=== PATIENT | male | born 1945 | race Caucasian/White ===

== ENCOUNTER 2017-03-23 07:04 | Day surgery (SDC) | payer MEDICARE, BC ==
[2017-03-23] MEDS ORDERED: fentaNYL 100 MCG/2 ML SDV ONE (07:54)
[2017-03-23] MEDS ORDERED: Midazolam 1 MG/ML 2 ML SDV ONE (07:54)
[2017-03-23] MEDS ORDERED: Propofol 200 MG/20 ML SDV ONE (07:54)
[2017-03-23] MEDS ORDERED: Dextrose 5%-Lactated Ringers 1,000 ML IV SCH (08:00)
[2017-03-23 10:17] VITALS: BP 112/78
--- NOTE | 2017-03-26 12:19 | OR ---
DATE OF PROCEDURE: 03/23/2017 PREOPERATIVE DIAGNOSES: 1. Recent history of rectal pain. 2. History of adenomatous colonic polyps. POSTOPERATIVE DIAGNOSIS: Normal colonoscopic examination. OPERATIVE PROCEDURE: Flexible colonoscopy. ANESTHESIA: IV sedation. INDICATION FOR PROCEDURE: A 71-year-old male presenting with some ongoing rectal pain. He does have history of colonic adenomatous polyps and is due for a flexible colonoscopy followup and we also would be evaluating for any underlying source of his rectal pain. He there has recently completed a course of antibiotics apparently for prostatitis per Dr. Shepherd at the Urology Department at [place]. Plan is to treat with flexible colonoscopy with biopsies and/or polypectomy. Potential risks including bleeding and perforation were discussed, and the patient wishes to proceed. DETAILS OF THE PROCEDURE: The patient was taken to the operating room and placed in a left lateral decubitus position. IV sedation was administered, after which the initial digital rectal exam was performed which showed a somewhat helpful prostate, but otherwise was unremarkable. The colonoscope was then passed into the rectum with retroflexion revealing uncomplicated hemorrhoidal columns. The scope was then eventually passed to the ileocecal valve. To that level, there was only a small amount of liquid stool present i.e. the prep was fairly good. There were no abnormalities noted during the exam. Specifically, no areas of diverticular disease. No areas of colitis and no polyps or other signs of neoplasia. As one pulled the scope back these findings were reconfirmed and the procedure was then concluded. Specifically, there were no abnormalities noted in the rectum on examination. The patient was taken to the recovery room in a satisfactory condition. The plan will be to have the patient follow up with Dr. Shepherd in the Urology Department in [place], given the normal colonoscopic examination and/or rectal pain. Noe Cervantes MD /[id number]
== END 2017-03-23 09:25 | disposition home or self-care (01) ==
LOC: JP.SDS 07:04
PROVIDERS: ATTEND Surgery
DX: Z12.11 Encounter for screening for malignant neoplasm of colon (principal); Z86.010 Personal history of colon polyps; Z88.2 Allergy status to sulfonamides; Z88.8 Allergy status to other drugs, medicaments and biological substances
CPT/HCPCS: G0105; J2250; J2704; J3010; J7042

== ENCOUNTER 2018-01-27 07:26 | Inpatient (IN) | payer MEDICARE, BC ==
[2018-01-27] MEDS ORDERED: Propofol 200 MG/20 ML SDV ONE ×3 (07:29→12:19)
[2018-01-27] MEDS ORDERED: Midazolam 1 MG/ML 2 ML SDV ONE (07:29)
[2018-01-27] MEDS ORDERED: fentaNYL 100 MCG/2 ML SDV ONE (07:29)
[2018-01-27] MEDS ORDERED: Scopolamine 1.5 MG Transdermal Patch TOP SCH (07:40)
[2018-01-27] MEDS ORDERED: Acetaminophen 500 MG Tab PO ONE (07:40)
[2018-01-27] MEDS ORDERED: Gabapentin 300 MG Cap PO ONE (07:40)
[2018-01-27] MEDS ORDERED: Lactated Ringers 1,000 ML IV SCH (08:15)
[2018-01-27] MEDS ORDERED: ceFAZolin 2 GM in Premix Bag 1 BAG IV ONE (08:15)
[2018-01-27] MEDS ORDERED: Ketamine 500 MG/5 ML MDV IV SCH (09:45)
[2018-01-27] MEDS ORDERED: Tranexamic Acid 3,000 MG, Sodium Chloride 0.9% 100 ML TOP SCH ×2 (09:45)
[2018-01-27] MEDS ORDERED: Ropivacaine 49.25 ML, Ketorolac 30 MG, EPINEPHrine 0.5 MG, cloNIDine 80 MCG, Sodium Chl... INJECT ONE ×5 (09:45)
[2018-01-27] MEDS ORDERED: Gentamicin 40 MG/ML 2 ML Vial ONE (09:54)
[2018-01-27] MEDS ORDERED: Povidone-Iodine 10% Soln 118.25 ML Bottle ONE (09:54)
[2018-01-27] MEDS ORDERED: Albuterol/Ipratropium 3.0-0.5 MG/3 ML Neb Soln NEB ONE (10:00)
[2018-01-27] MEDS ORDERED: ePHEDrine 50 MG/ML SDV ONE (11:57)
[2018-01-27] MEDS ORDERED: Lactated Ringers 1,000 ML ONE (12:43)
[2018-01-27] MEDS ORDERED: Bisacodyl 5 MG Tab PO PRN (12:54)
[2018-01-27] MEDS ORDERED: Docusate Sodium 100 MG Cap PO PRN (12:54)
[2018-01-27] MEDS ORDERED: Aluminum Hydroxide/Magnesium Hydroxide/Simethicone Susp 30 ML Cup PO PRN (12:54)
[2018-01-27] MEDS ORDERED: Morphine 2 MG/ML Syringe IVPUSH PRN (12:54)
[2018-01-27] MEDS ORDERED: Naloxone 0.4 MG/ML SDV IVPUSH PRN (12:54)
[2018-01-27] MEDS ORDERED: Ondansetron 4 MG/2 ML SDV IVPUSH PRN (12:54)
[2018-01-27] MEDS ORDERED: diphenhydrAMINE 50 MG/ML SDV IVPUSH PRN (12:54)
[2018-01-27] MEDS ORDERED: Sennosides 8.6 MG Tab PO PRN (12:54)
[2018-01-27] MEDS ORDERED: Magnesium Hydroxide 400 MG/5 ML Susp 30 ML Cup PO PRN (12:54)
[2018-01-27] MEDS ORDERED: Nitroglycerin 0.4 MG Tab.SL SL PRN (13:00)
--- NOTE | 2018-01-27 13:29 | CR ---
Knee 1V or 2V Rt INDICATION: post op FINDINGS: Postoperative changes total knee arthroplasty. Negative for postoperative purposes.
--- NOTE | 2018-01-27 13:49 | OR ---
DATE OF PROCEDURE: 01/27/2018 PREOPERATIVE DIAGNOSIS: Right knee primary osteoarthritis. POSTOPERATIVE DIAGNOSIS: Right knee primary osteoarthritis. PROCEDURE: Right knee total knee arthroplasty. ANESTHESIA: Spinal plus conscious sedation. FLUID: Lactated Ringer solution. ESTIMATED BLOOD LOSS: 50 mL. COMPLICATIONS: None. SPECIMEN: None. DISCHARGE DISPOSITION: Stable to PACU. INSTRUMENTATION: DePuy Attune size-8 cemented femur, size-8 cemented tibia, size-8 6-mm fixed bearing cruciate-retaining polyethylene, and size 38 cemented patella. INDICATIONS FOR THE PROCEDURE: The patient was seen preoperatively in the clinic. He had failed nonoperative treatment. Preoperative imaging confirmed the above-mentioned diagnosis. Risks and benefits of the procedure were explained to the patient. Informed consent was obtained. DESCRIPTION OF PROCEDURE: The patient was seen preoperatively by myself and the Anesthesia staff in the preoperative holding area, where the operative site was marked. He was brought to the operative suite by the Anesthesia staff, where spinal sedation was administered plus conscious sedation. All extremities were found to be well padded. A well-padded tourniquet was placed on the right thigh. [place] catheter was inserted. The right lower extremity was then prepped and draped in a sterile manner. Time-out was called identifying the correct patient, the correct procedure, the correct site, and that antibiotics had been begun within the appropriate period of time. The right lower extremity was exsanguinated. Tourniquet was raised to 300 mmHg for 42 minutes and taken down after cementing. A midline incision was made 4 fingerbreadths proximal to the patella, down to the level of the tibial tubercle, and carried down to the fascia. I then made a medial parapatellar arthrotomy through the fascia. A great deal of joint fluid came out of the knee, which was serous and yellow. I then performed a full synovectomy and removed the infrapatellar fat pad. Abundant synovial tissue was present, which was inflamed. We then everted the patella with a towel clip and then flexed the knee and then made 2 free-hand cuts on the patella. I then extended the knee and then placed our guide and then put 3 holes in it and then put our patellar trial in. I then flexed the knee and then reamed the distal femur and then put in the intramedullary guide and then put 2 pins to hold this in place for 5-degree valgus, 9-mm distal cut. I then made the distal cut and then removed my guide. I then used a posterior condylar guide, which measured a size 8, and then drilled with 2 pins through it. I then removed the guide and then placed the chamfer block and then protecting the medial and lateral collateral ligaments with retractors and performed my anterior, posterior, and chamfer cuts. After this had been performed, we then removed those pins and then used an extramedullary tibial guide with approximately 5-degree slope with a 3-mm depth cut on my stylus in line with the tibial tubercle and the second metatarsal. I pinned this in place and then, again, protecting my collateral ligaments, made my proximal tibial cut and preserved my posterior cruciate ligament. I then used a lamina languages and literature instructor and then removed the remaining portion of the medial and lateral meniscus, and then removed any posterior osteophytes present with a curved osteotome and then with a curette. I had anteriorized the tibia with a blunt Hohmann while doing this. We then anteriorized the tibia again and then used a size-8 guide and then used a tower to ream and tamp the proximal tibia. I then inserted my femoral trial and then drilled the lugs for this, and then inserted a size-8 5- mm polyethylene insert. We ranged the knee, and this provided good stability. I then removed all my components, copiously irrigated with saline, and then cemented all of my components in place. I then held the knee out in full extension with slight internal rotation. I let down the tourniquet and then waited for the cement to harden. I then removed any extra cement and copiously irrigated with saline. I decided to trial with a size-8 6-mm patella and settled on this. We then removed the trial and placed the final polyethylene component. I then copiously irrigated again with saline. I then placed two #5 Ethibond sutures to close the parapatellar arthrotomy at the proximal and distal poles of the patella followed by #1 STRATAFIX with some #5 Ethibond at the bottom of the parapatellar arthrotomy, and then closed with #2 STRATAFIX, followed by skin jaime, followed by a sterile dressing. The patient was then taken to the PACU in a stable condition. Uziel Cervantes DO /[id number]
[2018-01-27] MEDS ORDERED: Vancomycin 1 GM SDV IV SCH (14:00)
[2018-01-27] MEDS: Acetaminophen/oxyCODONE 325-5 MG Tab PO PRN ×2 (14:59→19:55)
--- NOTE | 2018-01-27 17:23 | PCM.PN ---
- General Info Date of Service: 01/27/18 Functional Status: Reports: Pain Controlled - Review of Systems General: Denies: Fever Systems Review Comment:: No acute events since surgery. Minimal pain at this time. Has not been up and walking around. No paresthesias in the lower extremities. No complaints of shortness of breath. He did have a Galicia catheter placed at the time of surgery and hematuria has been noted since that time. No hematuria prior to surgery. - Patient Data Vitals - Most Recent: Last Vital Signs Temp 35.5 C 01/27/18 15:36 Pulse 51 L 01/27/18 15:36 Resp 18 01/27/18 15:36 BP 148/71 H 01/27/18 15:36 Pulse Ox 88 L 01/27/18 15:58 Weight - Most Recent: 109.769 kg I&O - Last 24 Hours: Intake & Output 01/27/18 01/27/18 01/27/18 06:59 14:59 22:59 Intake Total 240 Balance 240 Lab Results Last 24 Hours: Laboratory Results - last 24 hr 01/27/18 Range/Units 07:50 Blood Type O NEGATIVE Gel Antibody Screen Negative Med Orders - Current: Current Medications Al Hydroxide/Mg Hydroxide (Mag-Al Plus) 30 ml PO Q4H PRN PRN Reason: Constipation Aspirin (Aspirin) 81 mg PO DAILY [facility] Bisacodyl (Dulcolax) 10 mg PO DAILY PRN PRN Reason: Constipation Carvedilol (Coreg) 3.125 mg [facility] Clopidogrel Bisulfate (Plavix) 75 mg PO DAILY [facility] Diphenhydramine HCl (Benadryl) 25 mg IVPUSH Q4H PRN PRN Reason: Itching Docusate Sodium (Colace) 100 mg PO BID PRN PRN Reason: Constipation Finasteride (Proscar) 5 mg PO DAILY [facility] Folic Acid (Folic Acid) 0.5 mg PO DAILY [facility] Hydrochlorothiazide (Hydrochlorothiazide) 25 mg PO DAILY [facility] Lactated Ringer's (Ringers, Lactated) 1,000 mls @ 100 mls/hr IV ASDIRECTED [facility] Vancomycin HCl 1.5 gm/ Sodium (Chloride) 250 mls @ 167 mls/hr IV ONETIME ONE Stop: 01/27/18 23:29 Ketorolac Tromethamine (Toradol) 30 mg IVPUSH Q8H PRN PRN Reason: Pain Stop: 01/30/18 12:55 Levalbuterol HCl (Xopenex) 0.63 mg NEB Q6H PRN PRN Reason: Shortness of Breath Lisinopril 10 mg/ Lisinopril (20 mg) 30 mg PO DAILY [facility] Magnesium Hydroxide (Milk Of Magnesia) 30 ml PO BID PRN PRN Reason: Constipation Morphine Sulfate (Morphine) 2 mg IVPUSH Q2H PRN PRN Reason: Pain Naloxone HCl (Narcan) 0.1 mg IVPUSH ASDIRECTED PRN PRN Reason: Oversedation Stop: 01/28/18 12:55 Nitroglycerin (Nitrostat) 0.4 mg SL ASDIRECTED PRN PRN Reason: CHEST PAIN Non-Formulary Medication (Alfuzosin [Uroxatral]) 10 mg PO DAILY [facility] Ondansetron HCl (Zofran) 8 mg IVPUSH Q4H PRN PRN Reason: Nausea/Vomiting Oxycodone/Acetaminophen (Percocet 325-5 Mg) 2 tab PO Q4H PRN PRN Reason: Pain Last Admin: 01/27/18 14:59 Dose: 2 tab Rosuvastatin Calcium (Crestor) 15 mg PO BEDTIME [facility] Scopolamine (Transderm-Scop) 1.5 mg TOP Q72H [facility] Last Admin: 01/27/18 08:36 Dose: 1.5 mg Senna (Senna) 8.6 mg PO BID PRN PRN Reason: Constipation Sodium Chloride (Saline Flush) 10 ml FLUSH DAILY [facility] Tramadol HCl (Ultram) 100 mg PO Q6H PRN PRN Reason: Pain Valacyclovir HCl (Valtrex) 500 mg PO BID [facility] Zolpidem Tartrate (Ambien) 5 mg PO BEDTIME PRN PRN Reason: Sleep Discontinued Medications Acetaminophen (Tylenol Extra Strength) 1,000 mg PO ONETIME ONE Stop: 01/27/18 07:41 Last Admin: 01/27/18 08:36 Dose: 1,000 mg Albuterol/Ipratropium (Duoneb 3.0-0.5 Mg/3 Ml) 3 ml NEB ONETIME ONE Stop: 01/27/18 10:01 Last Admin: 01/27/18 09:28 Dose: 3 ml Ropivacaine 49.25 ml/Ketorolac Tromethamine 30 mg/Epinephrine HCl 0.5 mg/ Clonidine HCl 80 mcg/ Sodium Chloride 48.45 ml 0 ml INJECT ONETIME ONE Stop: 01/27/18 09:46 Last Admin: 01/27/18 12:27 Dose: 100 ml Tranexamic Acid 3,000 mg/ (Sodium Chloride 100 ml) 0 mg TOP ASDIRECTED [facility] Stop: 01/27/18 09:46 Last Admin: 01/27/18 12:26 Dose: 3,000 bag Ephedrine Sulfate (Ephedrine Sulfate) Confirm Administered Dose 50 mg .ROUTE .STK-MED ONE Stop: 01/27/18 11:58 Fentanyl (Sublimaze) Confirm Administered Dose 100 mcg .ROUTE .STK-MED ONE Stop: 01/27/18 07:30 Gabapentin (Neurontin) 300 mg PO ONETIME ONE Stop: 01/27/18 07:41 Last Admin: 01/27/18 08:36 Dose: 300 mg Gentamicin Sulfate (Gentamicin) Confirm Administered Dose 240 mg .ROUTE .ST- MED ONE Stop: 01/27/18 09:55 Lactated Ringer's (Ringers, Lactated) 1,000 mls @ 0 mls/hr IV ASDIRECTED [facility] Last Admin: 01/27/18 08:37 Dose: 100 mls/hr Vancomycin HCl 1 gm/ Sodium (Chloride) 250 mls @ 150 mls/hr IV ONETIME ONE Stop: 01/27/18 09:39 Last Admin: 01/27/18 09:25 Dose: 150 mls/hr Lactated Ringer's (Ringers, Lactated) Confirm Administered Dose 1,000 mls @ as directed .ROUTE .STK-MED ONE Stop: 01/27/18 12:44 Ketamine HCl (Ketalar) 36 mg IV ASDIRECTED [facility] Midazolam HCl (Versed 1 Mg/Ml) Confirm Administered Dose 2 mg .ROUTE .STK-MED ONE Stop: 01/27/18 07:30 Povidone Iodine (Betadine 10% Soln) Confirm Administered Dose 1 ml .ROUTE .STK- MED ONE Stop: 01/27/18 09:55 Last Admin: 01/27/18 12:50 Dose: 10 ml Propofol (Diprivan 20 Ml) Confirm Administered Dose 200 mg .ROUTE .STK-MED ONE Stop: 01/27/18 07:30 Propofol (Diprivan 20 Ml) Confirm Administered Dose 200 mg .ROUTE .STK-MED ONE Stop: 01/27/18 11:47 Propofol (Diprivan 20 Ml) Confirm Administered Dose 200 mg .ROUTE .STK-MED ONE Stop: 01/27/18 12:20 Vancomycin HCl (Vancomycin) 1 gm IV .PHARMACY TO DOSE [facility] Stop: 01/27/18 16:00 - Exam Quality Assessment: No: Supplemental Oxygen General: Alert, Oriented, Cooperative, No Acute Distress Neck: Supple Lungs: Normal Respiratory Effort Cardiovascular: Regular Rhythm, Bradycardia GI/Abdominal Exam: Soft, No Distention Extremities: No Pedal Edema Skin: Warm, Dry Psy/Mental Status: Alert, Normal Affect - Problem List Review Problem List Initiated/Reviewed/Updated: Yes - Plan Plan:: ASSESSMENT AND PLAN Right knee osteoarthritis status post total right knee arthroplasty - minimal pain postoperatively. Vital signs are stable. -Postoperative cares per orthopedic team Hematuria - no hematuria preoperatively. Suspect irritation of the prostate while [place] catheter was inserted. -IV fluids overnight -Reassess hematuria in the morning Coronary artery disease - history of both bypass surgery and stenting. No active symptoms at this time. -Continue home medications Jarett Ponce M.D.
[2018-01-27] MEDS: Lactated Ringers 1,000 ML IV SCH (19:43)
[2018-01-27] MEDS: ROSUVASTATIN 10 MG PO SCH (20:10)
[2018-01-27] MEDS: valACYclovir 1,000 MG Tab PO SCH ×2 (20:10→20:12)
[2018-01-27] MEDS ORDERED: ROSUVASTATIN CALCIUM 15 MG PO SCH (21:00)
[2018-01-27] MEDS ORDERED: VALACYCLOVIR 500 MG PO SCH (21:00)
[2018-01-28] MEDS: Acetaminophen/oxyCODONE 325-5 MG Tab PO PRN ×5 (00:39→19:43)
[2018-01-28] MEDS ORDERED: Lactated Ringers 500 ML IV SCH (02:45)
--- NOTE | 2018-01-28 03:52 | PCM.SN ---
- Free Text/Narrative Note: call 2 [facility] at 02:37 s/o: vital signs 36.2-81-14 B/P 87/50 o2sat 97% a: hypotension p: IV fluid bolus 500ml once, continue IV fluids continue present plan of care
[2018-01-28] MEDS: Ketorolac 30 MG/ML SDV IVPUSH PRN ×2 (06:23→23:02)
[2018-01-28] MEDS: traMADol 50 MG Tab PO PRN (08:25)
[2018-01-28] MEDS: CLOPIDOGREL 75 MG PO SCH (08:28)
[2018-01-28] MEDS: Sodium Chloride 0.9% 10 ML Syringe FLUSH SCH (08:29)
[2018-01-28] MEDS: valACYclovir 1,000 MG Tab PO SCH ×2 (08:30→20:01)
--- NOTE | 2018-01-28 08:37 | PCM.DCSUM1 ---
Discharge Summary - Discharge Data Discharge Date: 02/03/18 Discharge Disposition: Home, Self-Care 01 Condition: Fair - Patient Summary/Data Operative Procedure(s) Performed: R TKA Complications: none Consults: Consultations 01/27/18 12:55 OT Evaluation and Treatment [CONS] Routine Please Evaluate and Treat. OT Reason for Consult: Strengthening This query below is only for informational purposes and is not editable. PT Evaluation and Treatment [CONS] Routine Please Evaluate and Treat. PT Reason for Consult: Strengthening This query below is only for informational purposes and is not editable. Respiratory Care Assess and Treatment [CONS] Routine Comment: Physician Instructions: Post-op Pneumonia Prevention - Patient Instructions Diet: Usual Diet as Tolerated Activity: Apply Ice, Full Weight Bearing, No Strenuous Activities Driving: Do Not Drive Showering/Bathing: May Shower Wound/Incision Care: Keep Operative Site/Wound Site Clean and Dry, Change Dressing Daily Notify Provider of: Fever, Increased Pain, Swelling and Redness, Drainage, Nausea and/or Vomiting - Discharge Plan Prescriptions/Med Rec: Acetaminophen/oxyCODONE [Percocet 325-5 MG] 1 tab PO Q6HR #90 tablet Levofloxacin [Levaquin] 500 mg PO Q24H #3 tablet Home Medications: Home Meds Hydrochlorothiazide 25 mg PO DAILY 03/25/14 [History] Lisinopril [Prinivil] 30 mg PO DAILY 03/25/14 [History] Rosuvastatin Calcium [Crestor] 15 mg PO BEDTIME 03/25/14 [History] Aspirin [Pepin Aspirin] 81 mg PO DAILY 08/19/14 [History] Nitroglycerin [Nitrostat] 0.4 mg SL ASDIRECTED 08/19/14 [History] [place] 900 mg PO BID 08/19/14 [History] Tadalafil [Cialis] 20 mg PO ASDIRECTED PRN 08/19/14 [History] Alfuzosin [Uroxatral] 10 mg PO DAILY 02/26/15 [History] Fluticasone Propionate [Flonase Allergy Relief] 2 sprays NS DAILY 02/26/15 [ History] Folic Acid 0.4 mg PO DAILY 02/26/15 [History] Levalbuterol HCl [Xopenex] 0.63 mg NEB Q6HRRT PRN 02/26/15 [History] Finasteride [Proscar] 5 mg PO DAILY 11/30/15 [History] valACYclovir [Valtrex] 500 mg PO BID 12/03/15 [History] Carvedilol [Coreg] 3.125 mg PO WITHDINNER 03/19/17 [History] Clopidogrel [Plavix] 75 mg PO DAILY 03/19/17 [History] Glucosamine/D3/Boswellia Lili [Glucosamine Complex Tablet] 1 each PO DAILY [History] Pantoprazole Sodium [Protonix] 40 mg PO DAILY 03/19/17 [History] Spencer-3/DHA/Epa/Fish Oil [Fish Oil 1,000 mg Softgel] 1 cap PO DAILY 01/11/18 [ History] Flaxseed Oil [Flaxseed] 1,000 mg PO 01/27/18 [History] Acetaminophen/oxyCODONE [Percocet 325-5 MG] 1 tab PO Q6HR #90 tablet 01/28/18 [ Rx] Levofloxacin [Levaquin] 500 mg PO Q24H #3 tablet 02/03/18 [Rx] Patient Handouts: Total Knee Replacement, Care After, [id number], Levofloxacin tablets, Preventing Constipation After Surgery Referrals: Zaira Loyd PT [Physical Therapist] - 02/08/18 7:45 am Uziel Cervantes DO [Physician] - 02/18/18 10:30 am - General Info Functional Status: Reports: Pain Controlled, Tolerating Diet, Ambulating - Review of Systems General: Reports: No Symptoms HEENT: Reports: No Symptoms Pulmonary: Reports: No Symptoms Cardiovascular: Reports: No Symptoms Gastrointestinal: Reports: No Symptoms Genitourinary: Reports: Hematuria Musculoskeletal: Reports: Joint Pain, Joint Swelling Skin: Reports: No Symptoms Neurological: Reports: No Symptoms Psychiatric: Reports: No Symptoms - Patient Data Vitals - Most Recent: Last Vital Signs Temp 99.5 F 01/28/18 07:16 Pulse 58 L 01/28/18 07:16 Resp 16 01/28/18 07:16 BP 107/53 L 01/28/18 07:16 Pulse Ox 96 01/28/18 07:16 Weight - Most Recent: 241 lb 15.987 oz I&O - Last 24 hours: Intake & Output 01/27/18 01/28/18 01/28/18 22:59 06:59 14:59 Intake Total 1090 2772 Output Total 250 295 Balance 847 7491 Lab Results - Last 24 hrs: Laboratory Results - last 24 hr 01/27/18 01/28/18 01/28/18 Range/Units 07:50 05:00 05:00 WBC 11.1 H (4.5-11.0) K/uL RBC 3.81 L (4.30-5.90) M/uL Hgb 11.5 L D (12.0-15.0) g/dL Hct 33.9 L (40.0-54.0) % MCV 89 (80-98) fL MCH 30 (27-31) pg MCHC 34 (32-36) % Plt Count 155 (150-400) K/uL Neut % (Auto) 80 H (36-66) % Lymph % (Auto) 10 L (24-44) % [place] % (Auto) 9 H (2-6) % Eos % (Auto) 2 (2-4) % Baso % (Auto) 0 (0-1) % Sodium 137 L (140-148) mmol/L Potassium 3.7 (3.6-5.2) mmol/L Chloride 102 (100-108) mmol/L Carbon Dioxide 29 (21-32) mmol/L Anion Gap 9.7 (5.0-14.0) mmol/L BUN 17 (7-18) mg/dL Creatinine 1.0 (0.8-1.3) mg/dL Est Cr Clr Drug Dosing 68.10 mL/min Estimated GFR (MDRD) > 60 (>60) Glucose 121 H (74-106) mg/dL Calcium 8.0 L (8.5-10.1) mg/dL Total Bilirubin 1.0 D (0.2-1.0) mg/dL AST 22 (15-37) U/L ALT 29 (12-78) U/L Alkaline Phosphatase 75 (46-116) U/L Total Protein 5.8 L (6.4-8.2) g/dL Albumin 3.1 L (3.4-5.0) g/dL Globulin 2.7 (2.3-3.5) g/dL Albumin/Globulin Ratio 1.2 (1.2-2.2) Blood Type O NEGATIVE Gel Antibody Screen Negative Med Orders - Current: Current Medications Al Hydroxide/Mg Hydroxide (Mag-Al Plus) 30 ml PO Q4H PRN PRN Reason: Constipation Aspirin (Aspirin) 81 mg PO DAILY [facility] Last Admin: 01/28/18 08:27 Dose: 81 mg Bisacodyl (Dulcolax) 10 mg PO DAILY PRN PRN Reason: Constipation Carvedilol (Coreg) 3.125 mg PO WITHDINNER [facility] Clopidogrel Bisulfate (Plavix) 75 mg PO DAILY [facility] Last Admin: 01/28/18 08:28 Dose: 75 mg Diphenhydramine HCl (Benadryl) 25 mg IVPUSH Q4H PRN PRN Reason: Itching Docusate Sodium (Colace) 100 mg PO BID PRN PRN Reason: Constipation Finasteride (Proscar) 5 mg PO DAILY [facility] Last Admin: 01/28/18 08:29 Dose: 5 mg Folic Acid (Folic Acid) 0.5 mg PO DAILY [facility] Last Admin: 01/28/18 08:28 Dose: 0.5 mg Hydrochlorothiazide (Hydrochlorothiazide) 25 mg PO DAILY [facility] Lactated Ringer's (Ringers, Lactated) 1,000 mls @ 100 mls/hr IV ASDIRECTED [facility] Last Admin: 01/27/18 19:43 Dose: 100 mls/hr Ketorolac Tromethamine (Toradol) 30 mg IVPUSH Q8H PRN PRN Reason: Pain Stop: 01/30/18 12:55 Last Admin: 01/28/18 06:23 Dose: 30 mg Levalbuterol HCl (Xopenex) 0.63 mg NEB Q6H PRN PRN Reason: Shortness of Breath Lisinopril 10 mg/ Lisinopril (20 mg) 30 mg PO DAILY [facility] Magnesium Hydroxide (Milk Of Magnesia) 30 ml PO BID PRN PRN Reason: Constipation Morphine Sulfate (Morphine) 2 mg IVPUSH Q2H PRN PRN Reason: Pain Naloxone HCl (Narcan) 0.1 mg IVPUSH ASDIRECTED PRN PRN Reason: Oversedation Stop: 01/28/18 12:55 Nitroglycerin (Nitrostat) 0.4 mg SL ASDIRECTED PRN PRN Reason: CHEST PAIN Non-Formulary Medication (Alfuzosin [Uroxatral]) 10 mg PO DAILY [facility] Ondansetron HCl (Zofran) 8 mg IVPUSH Q4H PRN PRN Reason: Nausea/Vomiting Oxycodone/Acetaminophen (Percocet 325-5 Mg) 2 tab PO Q4H PRN PRN Reason: Pain Last Admin: 01/28/18 05:21 Dose: 2 tab Rosuvastatin Calcium (Crestor) 15 mg PO BEDTIME [facility] Last Admin: 01/27/18 20:10 Dose: 15 mg Scopolamine (Transderm-Scop) 1.5 mg TOP Q72H [facility] Last Admin: 01/27/18 08:36 Dose: 1.5 mg Senna (Senna) 8.6 mg PO BID PRN PRN Reason: Constipation Sodium Chloride (Saline Flush) 10 ml FLUSH DAILY [facility] Last Admin: 01/28/18 08:29 Dose: 10 ml Tramadol HCl (Ultram) 100 mg PO Q6H PRN PRN Reason: Pain Last Admin: 01/28/18 08:25 Dose: 100 mg Valacyclovir HCl (Valtrex) 500 mg PO BID [facility] Last Admin: 01/28/18 08:30 Dose: 500 mg Zolpidem Tartrate (Ambien) 5 mg PO BEDTIME PRN PRN Reason: Sleep Discontinued Medications Acetaminophen (Tylenol Extra Strength) 1,000 mg PO ONETIME ONE Stop: 01/27/18 07:41 Last Admin: 01/27/18 08:36 Dose: 1,000 mg Albuterol/Ipratropium (Duoneb 3.0-0.5 Mg/3 Ml) 3 ml NEB ONETIME ONE Stop: 01/27/18 10:01 Last Admin: 01/27/18 09:28 Dose: 3 ml Ropivacaine 49.25 ml/Ketorolac Tromethamine 30 mg/Epinephrine HCl 0.5 mg/ Clonidine HCl 80 mcg/ Sodium Chloride 48.45 ml 0 ml INJECT ONETIME ONE Stop: 01/27/18 09:46 Last Admin: 01/27/18 12:27 Dose: 100 ml Tranexamic Acid 3,000 mg/ (Sodium Chloride 100 ml) 0 mg TOP ASDIRECTED [facility] Stop: 01/27/18 09:46 Last Admin: 01/27/18 12:26 Dose: 3,000 bag Ephedrine Sulfate (Ephedrine Sulfate) Confirm Administered Dose 50 mg .ROUTE .STK-MED ONE Stop: 01/27/18 11:58 Fentanyl (Sublimaze) Confirm Administered Dose 100 mcg .ROUTE .STK-MED ONE Stop: 01/27/18 07:30 Gabapentin (Neurontin) 300 mg PO ONETIME ONE Stop: 01/27/18 07:41 Last Admin: 01/27/18 08:36 Dose: 300 mg Gentamicin Sulfate (Gentamicin) Confirm Administered Dose 240 mg .ROUTE .ST- MED ONE Stop: 01/27/18 09:55 Lactated Ringer's (Ringers, Lactated) 1,000 mls @ 0 mls/hr IV ASDIRECTED [facility] Last Admin: 01/27/18 08:37 Dose: 100 mls/hr Vancomycin HCl 1 gm/ Sodium (Chloride) 250 mls @ 150 mls/hr IV ONETIME ONE Stop: 01/27/18 09:39 Last Admin: 01/27/18 09:25 Dose: 150 mls/hr Lactated Ringer's (Ringers, Lactated) Confirm Administered Dose 1,000 mls @ as directed .ROUTE .ST-MED ONE Stop: 01/27/18 12:44 Vancomycin HCl 1.5 gm/ Sodium (Chloride) 250 mls @ 167 mls/hr IV ONETIME ONE Stop: 01/27/18 23:29 Last Admin: 01/27/18 21:43 Dose: 167 mls/hr Lactated Ringer's (Ringers, Lactated) 500 mls @ 500 mls/hr IV BOLUS [facility] Stop: 01/28/18 03:44 Last Admin: 01/28/18 02:40 Dose: 500 mls/hr Ketamine HCl (Ketalar) 36 mg IV ASDIRECTED [facility] Midazolam HCl (Versed 1 Mg/Ml) Confirm Administered Dose 2 mg .ROUTE .STK-MED ONE Stop: 01/27/18 07:30 Povidone Iodine (Betadine 10% Soln) Confirm Administered Dose 1 ml .ROUTE .ST- MED ONE Stop: 01/27/18 09:55 Last Admin: 01/27/18 12:50 Dose: 10 ml Propofol (Diprivan 20 Ml) Confirm Administered Dose 200 mg .ROUTE .STK-MED ONE Stop: 01/27/18 07:30 Propofol (Diprivan 20 Ml) Confirm Administered Dose 200 mg .ROUTE .ST-MED ONE Stop: 01/27/18 11:47 Propofol (Diprivan 20 Ml) Confirm Administered Dose 200 mg .ROUTE .STK-MED ONE Stop: 01/27/18 12:20 Vancomycin HCl (Vancomycin) 1 gm IV .PHARMACY TO DOSE [place] Stop: 01/27/18 16:00 - Exam General: Reports: Alert, Oriented HEENT: Reports: Pupils Equal, Mucous Membr. Moist/[place] Lungs: Reports: Normal Respiratory Effort Extremities: Joint Swelling, Limited Range of Motion Skin: Reports: Warm, Dry, Intact Wound/Incisions: Reports: Healing Well, Dressing Dry and Intact, No Drainage Neurological: Reports: No New Focal Deficit Psy/Mental Status: Reports: Alert, Normal Affect, Normal Mood Discharge Operative/Procedures - Procedures Performed Operations: R TKA LP Indication: CSF analysis Arterial Line Indication: hemodynamic monitoring Chest Tube Indication: pneumothorax Thoracentesis Indication: pleural effusion Paracentesis Indication: ascites
[2018-01-28] MEDS ORDERED: ALFUZOSIN 10 MG PO SCH ×2 (09:00→12:30)
[2018-01-28] MEDS ORDERED: Folic Acid 1 MG Tab PO SCH (09:00)
[2018-01-28] MEDS ORDERED: Lisinopril 20 MG Tab PO SCH (09:00)
[2018-01-28] MEDS ORDERED: FOLIC ACID 0.4 MG PO SCH (09:00)
[2018-01-28] MEDS ORDERED: Aspirin 81 MG Tab.Chew PO SCH (09:00)
[2018-01-28] MEDS ORDERED: Finasteride 5 MG Tab PO SCH (09:00)
[2018-01-28] MEDS ORDERED: HYDROCHLOROTHIAZIDE 25 MG PO SCH (09:00)
[2018-01-28] MEDS ORDERED: Sodium Chloride 0.9% 500 ML IV ONE ×2 (10:30→14:15)
[2018-01-28] MEDS: Lactated Ringers 1,000 ML IV SCH ×2 (12:31→23:11)
--- NOTE | 2018-01-28 14:14 | PCM.PN ---
- General Info Date of Service: 01/28/18 Functional Status: Reports: Pain Controlled, Tolerating Diet - Review of Systems Genitourinary: Reports: Hematuria (improving) Systems Review Comment:: patient had difficulty with lower blood pressures and low urine output overnight. Both of these improved after IV fluid bolus. Urine remains concentrated but hematuria seems to have resolved. Blood pressure still on the low side. Knee pain is well-controlled and he has been ambulating without significant limitation. - Patient Data Vitals - Most Recent: Last Vital Signs Temp 37.3 C 01/28/18 13:05 Pulse 65 01/28/18 13:05 Resp 16 01/28/18 13:05 BP 114/46 L 01/28/18 13:05 Pulse Ox 94 L 01/28/18 13:05 Weight - Most Recent: 109.769 kg I&O - Last 24 Hours: Intake & Output 01/27/18 01/28/18 01/28/18 22:59 06:59 14:59 Intake Total 1090 2772 Output Total 250 295 180 Balance 840 2477 -180 Lab Results Last 24 Hours: Laboratory Results - last 24 hr 01/28/18 01/28/18 Range/Units 05:00 05:00 WBC 11.1 H (4.5-11.0) K/uL RBC 3.81 L (4.30-5.90) M/uL Hgb 11.5 L D (12.0-15.0) g/dL Hct 33.9 L (40.0-54.0) % MCV 89 (80-98) fL MCH 30 (27-31) pg MCHC 34 (32-36) % Plt Count 155 (150-400) K/uL Neut % (Auto) 80 H (36-66) % Lymph % (Auto) 10 L (24-44) % [place] % (Auto) 9 H (2-6) % Eos % (Auto) 2 (2-4) % Baso % (Auto) 0 (0-1) % Sodium 137 L (140-148) mmol/L Potassium 3.7 (3.6-5.2) mmol/L Chloride 102 (100-108) mmol/L Carbon Dioxide 29 (21-32) mmol/L Anion Gap 9.7 (5.0-14.0) mmol/L BUN 17 (7-18) mg/dL Creatinine 1.0 (0.8-1.3) mg/dL Est Cr Clr Drug Dosing 68.10 mL/min Estimated GFR (MDRD) > 60 (>60) Glucose 121 H (74-106) mg/dL Calcium 8.0 L (8.5-10.1) mg/dL Total Bilirubin 1.0 D (0.2-1.0) mg/dL AST 22 (15-37) U/L ALT 29 (12-78) U/L Alkaline Phosphatase 75 (46-116) U/L Total Protein 5.8 L (6.4-8.2) g/dL Albumin 3.1 L (3.4-5.0) g/dL Globulin 2.7 (2.3-3.5) g/dL Albumin/Globulin Ratio 1.2 (1.2-2.2) Med Orders - Current: Current Medications Al Hydroxide/Mg Hydroxide (Mag-Al Plus) 30 ml PO Q4H PRN PRN Reason: Constipation Aspirin (Aspirin) 81 mg PO DAILY [facility] Last Admin: 01/28/18 08:27 Dose: 81 mg Bisacodyl (Dulcolax) 10 mg PO DAILY PRN PRN Reason: Constipation Carvedilol (Coreg) [facility].[address] [facility] [place] Clopidogrel Bisulfate (Plavix) 75 mg PO DAILY [facility] Last Admin: 01/28/18 08:28 Dose: 75 mg Diphenhydramine HCl (Benadryl) 25 mg IVPUSH Q4H PRN PRN Reason: Itching Docusate Sodium (Colace) 100 mg PO BID PRN PRN Reason: Constipation Finasteride (Proscar) 5 mg PO DAILY [facility] Last Admin: 01/28/18 08:29 Dose: 5 mg Folic Acid (Folic Acid) 0.5 mg PO DAILY [facility] Last Admin: 01/28/18 08:28 Dose: 0.5 mg Hydrochlorothiazide (Hydrochlorothiazide) 25 mg PO DAILY [facility] Lactated Ringer's (Ringers, Lactated) 1,000 mls @ 100 mls/hr IV ASDIRECTED [facility] Last Admin: 01/28/18 12:31 Dose: 100 mls/hr Sodium Chloride (Normal Saline) 500 mls @ 500 mls/hr IV .BOLUS [facility] Ketorolac Tromethamine (Toradol) 30 mg IVPUSH Q8H PRN PRN Reason: Pain Stop: 01/30/18 12:55 Last Admin: 01/28/18 06:23 Dose: 30 mg Levalbuterol HCl (Xopenex) 0.63 mg NEB Q6H PRN PRN Reason: Shortness of Breath Lisinopril 10 mg/ Lisinopril (20 mg) 30 mg PO DAILY [facility] Last Admin: 01/28/18 11:47 Dose: Not Given Magnesium Hydroxide (Milk Of Magnesia) 30 ml PO BID PRN PRN Reason: Constipation Morphine Sulfate (Morphine) 2 mg IVPUSH Q2H PRN PRN Reason: Pain Nitroglycerin (Nitrostat) 0.4 mg SL ASDIRECTED PRN PRN Reason: CHEST PAIN Ondansetron HCl (Zofran) 8 mg IVPUSH Q4H PRN PRN Reason: Nausea/Vomiting Oxycodone/Acetaminophen (Percocet 325-5 Mg) 2 tab PO Q4H PRN PRN Reason: Pain Last Admin: 01/28/18 10:10 Dose: 2 tab Alfuzosin Er 10mg ( (Ptom)) 0 each PO BEDTIME [facility] Rosuvastatin Calcium (Crestor) 15 mg PO BEDTIME [facility] Last Admin: 01/27/18 20:10 Dose: 15 mg Scopolamine (Transderm-Scop) 1.5 mg TOP Q72H [facility] Last Admin: 01/27/18 08:36 Dose: 1.5 mg Senna (Senna) 8.6 mg PO BID PRN PRN Reason: Constipation Sodium Chloride (Saline Flush) 10 ml FLUSH DAILY [facility] Last Admin: 01/28/18 08:29 Dose: 10 ml Tramadol HCl (Ultram) 100 mg PO Q6H PRN PRN Reason: Pain Last Admin: 01/28/18 08:25 Dose: 100 mg Valacyclovir HCl (Valtrex) 500 mg PO BID [facility] Last Admin: 01/28/18 08:30 Dose: 500 mg Zolpidem Tartrate (Ambien) 5 mg PO BEDTIME PRN PRN Reason: Sleep Discontinued Medications Acetaminophen (Tylenol Extra Strength) 1,000 mg PO ONETIME ONE Stop: 01/27/18 07:41 Last Admin: 01/27/18 08:36 Dose: 1,000 mg Albuterol/Ipratropium (Duoneb 3.0-0.5 Mg/3 Ml) 3 ml NEB ONETIME ONE Stop: 01/27/18 10:01 Last Admin: 01/27/18 09:28 Dose: 3 ml Ropivacaine 49.25 ml/Ketorolac Tromethamine 30 mg/Epinephrine HCl 0.5 mg/ Clonidine HCl 80 mcg/ Sodium Chloride 48.45 ml 0 ml INJECT ONETIME ONE Stop: 01/27/18 09:46 Last Admin: 01/27/18 12:27 Dose: 100 ml Tranexamic Acid 3,000 mg/ (Sodium Chloride 100 ml) 0 mg TOP ASDIRECTED [facility] Stop: 01/27/18 09:46 Last Admin: 01/27/18 12:26 Dose: 3,000 bag Ephedrine Sulfate (Ephedrine Sulfate) Confirm Administered Dose 50 mg .ROUTE .STK-MED ONE Stop: 01/27/18 11:58 Fentanyl (Sublimaze) Confirm Administered Dose 100 mcg .ROUTE .STK-MED ONE Stop: 01/27/18 07:30 Gabapentin (Neurontin) 300 mg PO ONETIME ONE Stop: 01/27/18 07:41 Last Admin: 01/27/18 08:36 Dose: 300 mg Gentamicin Sulfate (Gentamicin) Confirm Administered Dose 240 mg .ROUTE .STK- MED ONE Stop: 01/27/18 09:55 Lactated Ringer's (Ringers, Lactated) 1,000 mls @ 0 mls/hr IV ASDIRECTED [facility] Last Admin: 01/27/18 08:37 Dose: 100 mls/hr Vancomycin HCl 1 gm/ Sodium (Chloride) 250 mls @ 150 mls/hr IV ONETIME ONE Stop: 01/27/18 09:39 Last Admin: 01/27/18 09:25 Dose: 150 mls/hr Lactated Ringer's (Ringers, Lactated) Confirm Administered Dose 1,000 mls @ as directed .ROUTE .STK-MED ONE Stop: 01/27/18 12:44 Vancomycin HCl 1.5 gm/ Sodium (Chloride) 250 mls @ 167 mls/hr IV ONETIME ONE Stop: 01/27/18 23:29 Last Admin: 01/27/18 21:43 Dose: 167 mls/hr Lactated Ringer's (Ringers, Lactated) 500 mls @ 500 mls/hr IV BOLUS [facility] Stop: 01/28/18 03:44 Last Admin: 01/28/18 02:40 Dose: 500 mls/hr Sodium Chloride (Normal Saline) 500 mls @ 500 mls/hr IV .BOLUS ONE Stop: 01/28/18 11:29 Last Admin: 01/28/18 11:20 Dose: 500 mls/hr Ketamine HCl (Ketalar) 36 mg IV ASDIRECTED [place] Midazolam HCl (Versed 1 Mg/Ml) Confirm Administered Dose 2 mg .ROUTE .STK-MED ONE Stop: 01/27/18 07:30 Naloxone HCl (Narcan) 0.1 mg IVPUSH ASDIRECTED PRN PRN Reason: Oversedation Stop: 01/28/18 12:55 Alfuzosin Er 10mg ( (Ptom)) 0 each PO DAILY [facility] Povidone Iodine (Betadine 10% Soln) Confirm Administered Dose 1 ml .ROUTE .STK- MED ONE Stop: 01/27/18 09:55 Last Admin: 01/27/18 12:50 Dose: 10 ml Propofol (Diprivan 20 Ml) Confirm Administered Dose 200 mg .ROUTE .STK-MED ONE Stop: 01/27/18 07:30 Propofol (Diprivan 20 Ml) Confirm Administered Dose 200 mg .ROUTE .STK-MED ONE Stop: 01/27/18 11:47 Propofol (Diprivan 20 Ml) Confirm Administered Dose 200 mg .ROUTE .STK-MED ONE Stop: 01/27/18 12:20 Vancomycin HCl (Vancomycin) 1 gm IV .PHARMACY TO DOSE [facility] Stop: 01/27/18 16:00 - Exam Quality Assessment: No: Supplemental Oxygen General: Alert, Oriented, Cooperative, No Acute Distress Neck: Supple Lungs: Normal Respiratory Effort Cardiovascular: Regular Rate, Regular Rhythm GI/Abdominal Exam: Soft, No Distention Extremities: No Pedal Edema Psy/Mental Status: Alert, Normal Affect - Problem List Review Problem List Initiated/Reviewed/Updated: Yes - My Orders Last 24 Hours: My Active Orders 01/28/18 14:15 Sodium Chloride 0.9% [Normal Saline] 500 ml IV .BOLUS - Plan Plan:: ASSESSMENT AND PLAN Right knee osteoarthritis status post total right knee arthroplasty - minimal pain postoperatively. Vital signs are stable. -Postoperative cares per orthopedic team Hematuria - no hematuria preoperatively. Suspect irritation of the prostate while [place] catheter was inserted. hematuria seems to have resolved. -IV fluids overnight -Reassess hematuria in the morning -plan for catheter removal in the morning Coronary artery disease - history of both bypass surgery and stenting. No active symptoms at this time. blood pressure has been on the low side. -antihypertensives are on hold at this time with hypotension Jarett Ponce M.D.
--- NOTE | 2018-01-28 15:25 | PCM.PN ---
- General Info Date of Service: 01/28/18 Functional Status: Reports: Pain Controlled - Review of Systems General: Reports: No Symptoms HEENT: Reports: No Symptoms Pulmonary: Reports: No Symptoms Cardiovascular: Reports: No Symptoms Gastrointestinal: Reports: No Symptoms Genitourinary: Reports: No Symptoms Musculoskeletal: Reports: Joint Pain Skin: Reports: No Symptoms Neurological: Reports: No Symptoms Psychiatric: Reports: No Symptoms - Patient Data Vitals - Most Recent: Last Vital Signs Temp 99.1 F 01/28/18 15:18 Pulse 50 L 01/28/18 15:18 Resp 16 01/28/18 15:18 BP 124/57 L 01/28/18 15:18 Pulse Ox 95 01/28/18 15:18 Weight - Most Recent: 241 lb 15.987 oz I&O - Last 24 Hours: Intake & Output 01/28/18 01/28/18 01/28/18 06:59 14:59 22:59 Intake Total 2772 500 Output Total 295 180 Balance 2477 320 Lab Results Last 24 Hours: Laboratory Results - last 24 hr 01/28/18 01/28/18 Range/Units 05:00 05:00 WBC 11.1 H (4.5-11.0) K/uL RBC 3.81 L (4.30-5.90) M/uL Hgb 11.5 L D (12.0-15.0) g/dL Hct 33.9 L (40.0-54.0) % MCV 89 (80-98) fL MCH 30 (27-31) pg MCHC 34 (32-36) % Plt Count 155 (150-400) K/uL Neut % (Auto) 80 H (36-66) % Lymph % (Auto) 10 L (24-44) % [place] % (Auto) 9 H (2-6) % Eos % (Auto) 2 (2-4) % Baso % (Auto) 0 (0-1) % Sodium 137 L (140-148) mmol/L Potassium 3.7 (3.6-5.2) mmol/L Chloride 102 (100-108) mmol/L Carbon Dioxide 29 (21-32) mmol/L Anion Gap 9.7 (5.0-14.0) mmol/L BUN 17 (7-18) mg/dL Creatinine 1.0 (0.8-1.3) mg/dL Est Cr Clr Drug Dosing 68.10 mL/min Estimated GFR (MDRD) > 60 (>60) Glucose 121 H (74-106) mg/dL Calcium 8.0 L (8.5-10.1) mg/dL Total Bilirubin 1.0 D (0.2-1.0) mg/dL AST 22 (15-37) U/L ALT 29 (12-78) U/L Alkaline Phosphatase 75 (46-116) U/L Total Protein 5.8 L (6.4-8.2) g/dL Albumin 3.1 L (3.4-5.0) g/dL Globulin 2.7 (2.3-3.5) g/dL Albumin/Globulin Ratio 1.2 (1.2-2.2) Med Orders - Current: Current Medications Al Hydroxide/Mg Hydroxide (Mag-Al Plus) 30 ml PO Q4H PRN PRN Reason: Constipation Aspirin (Aspirin) 81 mg PO DAILY [facility] Last Admin: 01/28/18 08:27 Dose: 81 mg Bisacodyl (Dulcolax) 10 mg PO DAILY PRN PRN Reason: Constipation [facility]) [facility] Clopidogrel Bisulfate (Plavix) 75 mg PO DAILY [facility] Last Admin: 01/28/18 08:28 Dose: 75 mg Diphenhydramine HCl (Benadryl) 25 mg IVPUSH Q4H PRN PRN Reason: Itching Docusate Sodium (Colace) 100 mg PO BID PRN PRN Reason: Constipation Finasteride (Proscar) 5 mg PO DAILY [facility] Last Admin: 01/28/18 08:29 Dose: 5 mg Folic Acid (Folic Acid) 0.5 mg PO DAILY [facility] Last Admin: 01/28/18 08:28 Dose: 0.5 mg Hydrochlorothiazide (Hydrochlorothiazide) 25 mg PO DAILY [facility] Lactated Ringer's (Ringers, Lactated) 1,000 mls @ 100 mls/hr IV ASDIRECTED [facility] Last Admin: 01/28/18 12:31 Dose: 100 mls/hr Ketorolac Tromethamine (Toradol) 30 mg IVPUSH Q8H PRN PRN Reason: Pain Stop: 01/30/18 12:55 Last Admin: 01/28/18 06:23 Dose: 30 mg Levalbuterol HCl (Xopenex) 0.63 mg NEB Q6H PRN PRN Reason: Shortness of Breath Lisinopril 10 mg/ Lisinopril (20 mg) 30 mg PO DAILY [facility] Last Admin: 01/28/18 11:47 Dose: Not Given Magnesium Hydroxide (Milk Of Magnesia) 30 ml PO BID PRN PRN Reason: Constipation Morphine Sulfate (Morphine) 2 mg IVPUSH Q2H PRN PRN Reason: Pain Nitroglycerin (Nitrostat) 0.4 mg SL ASDIRECTED PRN PRN Reason: CHEST PAIN Ondansetron HCl (Zofran) 8 mg IVPUSH Q4H PRN PRN Reason: Nausea/Vomiting Oxycodone/Acetaminophen (Percocet 325-5 Mg) 2 tab PO Q4H PRN PRN Reason: Pain Last Admin: 01/28/18 14:17 Dose: 1 tab Alfuzosin Er 10mg ( (Ptom)) 0 each PO BEDTIME [facility] Rosuvastatin Calcium (Crestor) 15 mg PO BEDTIME [facility] Last Admin: 01/27/18 20:10 Dose: 15 mg Scopolamine (Transderm-Scop) 1.5 mg TOP Q72H [facility] Last Admin: 01/27/18 08:36 Dose: 1.5 mg Senna (Senna) 8.6 mg PO BID PRN PRN Reason: Constipation Sodium Chloride (Saline Flush) 10 ml FLUSH DAILY [facility] Last Admin: 01/28/18 08:29 Dose: 10 ml Tramadol HCl (Ultram) 100 mg PO Q6H PRN PRN Reason: Pain Last Admin: 01/28/18 08:25 Dose: 100 mg Valacyclovir HCl (Valtrex) 500 mg PO BID [facility] Last Admin: 01/28/18 08:30 Dose: 500 mg Zolpidem Tartrate (Ambien) 5 mg PO BEDTIME PRN PRN Reason: Sleep Discontinued Medications Acetaminophen (Tylenol Extra Strength) 1,000 mg PO ONETIME ONE Stop: 01/27/18 07:41 Last Admin: 01/27/18 08:36 Dose: 1,000 mg Albuterol/Ipratropium (Duoneb 3.0-0.5 Mg/3 Ml) 3 ml NEB ONETIME ONE Stop: 01/27/18 10:01 Last Admin: 01/27/18 09:28 Dose: 3 ml Ropivacaine 49.25 ml/Ketorolac Tromethamine 30 mg/Epinephrine HCl 0.5 mg/ Clonidine HCl 80 mcg/ Sodium Chloride 48.45 ml 0 ml INJECT ONETIME ONE Stop: 01/27/18 09:46 Last Admin: 01/27/18 12:27 Dose: 100 ml Tranexamic Acid 3,000 mg/ (Sodium Chloride 100 ml) 0 mg TOP ASDIRECTED [facility] Stop: 01/27/18 09:46 Last Admin: 01/27/18 12:26 Dose: 3,000 bag Ephedrine Sulfate (Ephedrine Sulfate) Confirm Administered Dose 50 mg .ROUTE .STK-MED ONE Stop: 01/27/18 11:58 Fentanyl (Sublimaze) Confirm Administered Dose 100 mcg .ROUTE .STK-MED ONE Stop: 01/27/18 07:30 Gabapentin (Neurontin) 300 mg PO ONETIME ONE Stop: 01/27/18 07:41 Last Admin: 01/27/18 08:36 Dose: 300 mg Gentamicin Sulfate (Gentamicin) Confirm Administered Dose 240 mg .ROUTE .STK- MED ONE Stop: 01/27/18 09:55 Lactated Ringer's (Ringers, Lactated) 1,000 mls @ 0 mls/hr IV ASDIRECTED [facility] Last Admin: 01/27/18 08:37 Dose: 100 mls/hr Vancomycin HCl 1 gm/ Sodium (Chloride) 250 mls @ 150 mls/hr IV ONETIME ONE Stop: 01/27/18 09:39 Last Admin: 01/27/18 09:25 Dose: 150 mls/hr Lactated Ringer's (Ringers, Lactated) Confirm Administered Dose 1,000 mls @ as directed .ROUTE .STK-MED ONE Stop: 01/27/18 12:44 Vancomycin HCl 1.5 gm/ Sodium (Chloride) 250 mls @ 167 mls/hr IV ONETIME ONE Stop: 01/27/18 23:29 Last Admin: 01/27/18 21:43 Dose: 167 mls/hr Lactated Ringer's (Ringers, Lactated) 500 mls @ 500 mls/hr IV BOLUS [facility] Stop: 01/28/18 03:44 Last Admin: 01/28/18 02:40 Dose: 500 mls/hr Sodium Chloride (Normal Saline) 500 mls @ 500 mls/hr IV .BOLUS ONE Stop: 01/28/18 11:29 Last Admin: 01/28/18 11:20 Dose: 500 mls/hr Sodium Chloride (Normal Saline) 500 mls @ 500 mls/hr IV .BOLUS ONE Stop: 01/28/18 15:14 Ketamine HCl (Ketalar) 36 mg IV ASDIRECTED [facility] Midazolam HCl (Versed 1 Mg/Ml) Confirm Administered Dose 2 mg .ROUTE .STK-MED ONE Stop: 01/27/18 07:30 Naloxone HCl (Narcan) 0.1 mg IVPUSH ASDIRECTED PRN PRN Reason: Oversedation Stop: 01/28/18 12:55 Alfuzosin Er 10mg ( (Ptom)) 0 each PO DAILY [facility] Povidone Iodine (Betadine 10% Soln) Confirm Administered Dose 1 ml .ROUTE .STK- MED ONE Stop: 01/27/18 09:55 Last Admin: 01/27/18 12:50 Dose: 10 ml Propofol (Diprivan 20 Ml) Confirm Administered Dose 200 mg .ROUTE .STK-MED ONE Stop: 01/27/18 07:30 Propofol (Diprivan 20 Ml) Confirm Administered Dose 200 mg .ROUTE .STK-MED ONE Stop: 01/27/18 11:47 Propofol (Diprivan 20 Ml) Confirm Administered Dose 200 mg .ROUTE .STK-MED ONE Stop: 01/27/18 12:20 Vancomycin HCl (Vancomycin) 1 gm IV .PHARMACY TO DOSE [facility] Stop: 01/27/18 16:00 - Exam General: Alert, Oriented HEENT: Pupils Equal, Pupils Reactive, EOMI, Mucous Membr. Moist/[place] Neck: Supple, Trachea Midline Lungs: Normal Respiratory Effort Cardiovascular: Regular Rate, Regular Rhythm Back Exam: Decreased Range of Motion Extremities: Joint Swelling, Leg Pain Peripheral Pulses: 2+: Dorsalis Pedis (R) Skin: Warm, Dry, Intact Wound/Incisions: Healing Well, Drainage Neurological: No New Focal Deficit Psy/Mental Status: Alert, Normal Affect, Normal Mood - Problem List & Annotations (1) Status post total right knee replacement SNOMED Code(s): 5551236426391 Code(s): Z96.651 - PRESENCE OF RIGHT ARTIFICIAL KNEE JOINT Status: Acute Current Visit: Yes (2) Primary osteoarthritis of right knee SNOMED Code(s): 031268467544618, 244362902953466 Code(s): M17.11 - UNILATERAL PRIMARY OSTEOARTHRITIS, RIGHT KNEE Status: Chronic Current Visit: No - Problem List Review Problem List Initiated/Reviewed/Updated: Yes - My Orders Last 24 Hours: My Active Orders 01/27/18 17:00 Carvedilol [Coreg] 3.125 mg PO WITHDINNER 01/27/18 21:00 Rosuvastatin [Crestor] 15 mg PO BEDTIME valACYclovir [Valtrex] 500 mg PO BID 01/27/18 Dinner Advance Diet Instructions [DIET] 01/28/18 06:00 Urinary Catheter Removal [RC] Per Unit Routine 01/28/18 09:00 Aspirin 81 mg PO DAILY Clopidogrel [Plavix] 75 mg PO DAILY Finasteride [Proscar] 5 mg PO DAILY Folic Acid 0.5 mg PO DAILY Hydrochlorothiazide 25 mg PO DAILY Lisinopril [Prinivil] 30 mg PO DAILY Sodium Chloride 0.9% [Saline Flush] 10 ml FLUSH DAILY 01/28/18 13:00 Oral Care [OM.PC] BID 01/28/18 14:00 Admission Status [Patient Status] [ADT] Routine 01/28/18 21:00 Patient's Own Medication [Ptom] 0 each PO BEDTIME 01/29/18 05:15 CBC WITH AUTO DIFF [HEME] DAILY COMPREHENSIVE METABOLIC PN,CMP [CHEM] DAILY 01/29/18 13:00 Oral Care [OM.PC] BID 01/30/18 05:15 CBC WITH AUTO DIFF [HEME] DAILY COMPREHENSIVE METABOLIC PN,CMP [CHEM] DAILY 01/30/18 13:00 Oral Care [OM.PC] BID 01/31/18 05:15 CBC WITH AUTO DIFF [HEME] DAILY COMPREHENSIVE METABOLIC PN,CMP [CHEM] DAILY 01/31/18 13:00 Oral Care [OM.PC] BID 02/01/18 13:00 Oral Care [OM.PC] BID 02/02/18 13:00 Oral Care [OM.PC] BID 02/03/18 13:00 Oral Care [OM.PC] BID 02/04/18 13:00 Oral Care [OM.PC] BID 02/05/18 13:00 Oral Care [OM.PC] BID - Plan Plan:: Assessment: Postoperative day #1 right total knee arthroplasty. Plan: The patient has resolving hematuria from yesterday. He's had some difficulty with range of motion today. He is present is been in physical therapy. Will continue that. He has restarted his Plavix and aspirin. The hospitalist is monitoring his decreased urine output as well as hypertension. He is improving throughout the day. We will keep him another nitroglycerin for observation.
[2018-01-28] MEDS: CARVEDILOL 3.125 MG PO SCH (17:30)
[2018-01-28] MEDS: Levalbuterol HCl 0.63 MG/3 ML Neb NEB PRN (19:51)
[2018-01-28] MEDS: ALFUZOSIN 10 MG PO SCH (20:03)
[2018-01-28] MEDS: ROSUVASTATIN 10 MG PO SCH (20:05)
[2018-01-28] MEDS: Melatonin 3 MG Tab PO PRN (21:02)
[2018-01-28] MEDS: Acetaminophen 325 MG Tab PO PRN (21:46)
[2018-01-29] MEDS: Acetaminophen/oxyCODONE 325-5 MG Tab PO PRN ×5 (02:12→21:56)
[2018-01-29] MEDS: Aspirin 81 MG Tab.EC (PTOM) PO SCH (09:17)
[2018-01-29] MEDS: FINASTERIDE 5 MG PO SCH (09:18)
[2018-01-29] MEDS: FOLIC ACID 400 MCG PO SCH (09:18)
[2018-01-29] MEDS: CLOPIDOGREL 75 MG PO SCH (09:18)
[2018-01-29] MEDS: valACYclovir 1,000 MG Tab PO SCH ×3 (09:19→20:05)
[2018-01-29] MEDS: Sodium Chloride 0.9% 10 ML Syringe FLUSH SCH (09:19)
[2018-01-29] MEDS: LISINOPRIL 30 MG PO SCH (09:25)
--- NOTE | 2018-01-29 10:43 | PCM.PN ---
- General Info Date of Service: 01/29/18 Functional Status: Reports: Pain Controlled, Tolerating Diet - Review of Systems General: Reports: Fever Neurological: Reports: Confusion Systems Review Comment:: Patient has had temperature elevations to greater than 102 throughout the night. He is shaky and cold and confused with the episodes of fever. Patient has been having nightmares and hallucinations. Knee pain is well-controlled. He has done well with physical therapy. He has been able to void after the catheter was removed this morning. - Patient Data Vitals - Most Recent: Last Vital Signs Temp 36.3 C 01/29/18 07:35 Pulse 64 01/29/18 07:35 Resp 18 01/29/18 07:35 BP 128/49 L 01/29/18 09:23 Pulse Ox 90 L 01/29/18 07:39 Weight - Most Recent: 109.769 kg I&O - Last 24 Hours: Intake & Output 01/28/18 01/29/18 01/29/18 22:59 06:59 14:59 Intake Total 1440 1780 480 Output Total 625 775 150 Balance 815 1005 330 Lab Results Last 24 Hours: Laboratory Results - last 24 hr 01/29/18 01/29/18 Range/Units 05:53 05:53 WBC 8.0 (4.5-11.0) K/uL RBC 3.38 L (4.30-5.90) M/uL Hgb 10.2 L (12.0-15.0) g/dL Hct 30.1 L (40.0-54.0) % MCV 89 (80-98) fL MCH 30 (27-31) pg MCHC 34 (32-36) % Plt Count 113 L (150-400) K/uL Neut % (Auto) 70 H (36-66) % Lymph % (Auto) 13 L (24-44) % [place] % (Auto) 12 H (2-6) % Eos % (Auto) 4 (2-4) % Baso % (Auto) 0 (0-1) % Sodium 135 L (140-148) mmol/L Potassium 3.7 (3.6-5.2) mmol/L Chloride 101 (100-108) mmol/L Carbon Dioxide 29 (21-32) mmol/L Anion Gap 8.7 (5.0-14.0) mmol/L BUN 14 (7-18) mg/dL Creatinine 1.0 (0.8-1.3) mg/dL Est Cr Clr Drug Dosing 68.10 mL/min Estimated GFR (MDRD) > 60 (>60) Glucose 125 H (74-106) mg/dL Calcium 7.9 L (8.5-10.1) mg/dL Total Bilirubin 0.9 (0.2-1.0) mg/dL AST 28 (15-37) U/L ALT 27 (12-78) U/L Alkaline Phosphatase 71 (46-116) U/L Total Protein 5.7 L (6.4-8.2) g/dL Albumin 2.8 L (3.4-5.0) g/dL Globulin 2.9 (2.3-3.5) g/dL Albumin/Globulin Ratio 1.0 L (1.2-2.2) Med Orders - Current: Current Medications Acetaminophen (Tylenol) 325 mg PO Q4H PRN PRN Reason: Fever Last Admin: 01/28/18 21:46 Dose: 325 mg Al Hydroxide/Mg Hydroxide (Mag-Al Plus) 30 ml PO Q4H PRN PRN Reason: Constipation Aspirin (Halfprin) 81 mg PO DAILY [facility] Last Admin: 01/29/18 09:17 Dose: 81 mg Bisacodyl (Dulcolax) 10 mg PO DAILY PRN PRN Reason: Constipation Carvedilol (Coreg) 3.125 mg PO WITHDINNER [facility] Last Admin: 01/28/18 17:30 Dose: 3.125 mg Clopidogrel Bisulfate (Plavix) 75 mg PO DAILY [facility] Last Admin: 01/29/18 09:18 Dose: 75 mg Docusate Sodium (Colace) 100 mg PO BID PRN PRN Reason: Constipation Finasteride (Proscar) 5 mg PO DAILY [facility] Last Admin: 01/29/18 09:18 Dose: 5 mg Hydrochlorothiazide (Hydrochlorothiazide) 25 mg PO DAILY [facility] Levalbuterol HCl (Xopenex) 0.63 mg NEB Q6H PRN PRN Reason: Shortness of Breath Last Admin: 01/28/18 19:51 Dose: 0.63 mg Magnesium Hydroxide (Milk Of Magnesia) 30 ml PO BID PRN PRN Reason: Constipation Melatonin (Melatonin) 3 mg PO BEDTIME PRN PRN Reason: Insomnia Last Admin: 01/28/18 21:02 Dose: 3 mg Morphine Sulfate (Morphine) 2 mg IVPUSH Q2H PRN PRN Reason: Pain Nitroglycerin (Nitrostat) 0.4 mg SL ASDIRECTED PRN PRN Reason: CHEST PAIN Ondansetron HCl (Zofran) 8 mg IVPUSH Q4H PRN PRN Reason: Nausea/Vomiting Oxycodone/Acetaminophen (Percocet 325-5 Mg) 1 - 2 tab PO Q4H PRN PRN Reason: Pain Alfuzosin Er 10mg ( (Ptom)) 0 each PO BEDTIME [facility] Last Admin: 01/28/18 20:03 Dose: 1 each Folic Acid 400mcg ( (Ptom)) 0 each PO DAILY [facility] Last Admin: 01/29/18 09:18 Dose: 1 each Lisinopril 30mg ( (Ptom)) 0 each PO DAILY [facility] Last Admin: 01/29/18 09:25 Dose: 1 each Rosuvastatin Calcium (Crestor) 15 mg PO BEDTIME [facility] Last Admin: 01/28/18 20:05 Dose: 15 mg Senna (Senna) 8.6 mg PO BID PRN PRN Reason: Constipation Sodium Chloride (Saline Flush) 10 ml FLUSH DAILY [facility] Last Admin: 01/29/18 09:19 Dose: 10 ml Tramadol HCl (Ultram) 100 mg PO Q6H PRN PRN Reason: Pain Last Admin: 01/28/18 08:25 Dose: 100 mg Valacyclovir HCl (Valtrex) 500 mg PO BID [facility] Last Admin: 01/29/18 09:19 Dose: Not Given Zolpidem Tartrate (Ambien) 5 mg PO BEDTIME PRN PRN Reason: Sleep Discontinued Medications Acetaminophen (Tylenol Extra Strength) 1,000 mg PO ONETIME ONE Stop: 01/27/18 07:41 Last Admin: 01/27/18 08:36 Dose: 1,000 mg Albuterol/Ipratropium (Duoneb 3.0-0.5 Mg/3 Ml) 3 ml NEB ONETIME ONE Stop: 01/27/18 10:01 Last Admin: 01/27/18 09:28 Dose: 3 ml Aspirin (Aspirin) 81 mg PO DAILY [facility] Last Admin: 01/28/18 08:27 Dose: 81 mg Ropivacaine 49.25 ml/Ketorolac Tromethamine 30 mg/Epinephrine HCl 0.5 mg/ Clonidine HCl 80 mcg/ Sodium Chloride 48.45 ml 0 ml INJECT ONETIME ONE Stop: 01/27/18 09:46 Last Admin: 01/27/18 12:27 Dose: 100 ml Tranexamic Acid 3,000 mg/ (Sodium Chloride 100 ml) 0 mg TOP ASDIRECTED [facility] Stop: 01/27/18 09:46 Last Admin: 01/27/18 12:26 Dose: 3,000 bag Diphenhydramine HCl (Benadryl) 25 mg IVPUSH Q4H PRN PRN Reason: Itching Ephedrine Sulfate (Ephedrine Sulfate) Confirm Administered Dose 50 mg .ROUTE .STK-MED ONE Stop: 01/27/18 11:58 Fentanyl (Sublimaze) Confirm Administered Dose 100 mcg .ROUTE .STK-MED ONE Stop: 01/27/18 07:30 Finasteride (Proscar) 5 mg PO DAILY [facility] Last Admin: 01/28/18 08:29 Dose: 5 mg Folic Acid (Folic Acid) 0.5 mg PO DAILY [facility] Last Admin: 01/28/18 08:28 Dose: 0.5 mg Gabapentin (Neurontin) 300 mg PO ONETIME ONE Stop: 01/27/18 07:41 Last Admin: 01/27/18 08:36 Dose: 300 mg Gentamicin Sulfate (Gentamicin) Confirm Administered Dose 240 mg .ROUTE .STK- MED ONE Stop: 01/27/18 09:55 Lactated Ringer's (Ringers, Lactated) 1,000 mls @ 0 mls/hr IV ASDIRECTED [facility] Last Admin: 01/27/18 08:37 Dose: 100 mls/hr Vancomycin HCl 1 gm/ Sodium (Chloride) 250 mls @ 150 mls/hr IV ONETIME ONE Stop: 01/27/18 09:39 Last Admin: 01/27/18 09:25 Dose: 150 mls/hr Lactated Ringer's (Ringers, Lactated) Confirm Administered Dose 1,000 mls @ as directed .ROUTE .STK-MED ONE Stop: 01/27/18 12:44 Lactated Ringer's (Ringers, Lactated) 1,000 mls @ 100 mls/hr IV ASDIRECTED [facility] Last Admin: 01/28/18 23:11 Dose: 100 mls/hr Vancomycin HCl 1.5 gm/ Sodium (Chloride) 250 mls @ 167 mls/hr IV ONETIME ONE Stop: 01/27/18 23:29 Last Admin: 01/27/18 21:43 Dose: 167 mls/hr Lactated Ringer's (Ringers, Lactated) 500 mls @ 500 mls/hr IV BOLUS [facility] Stop: 01/28/18 03:44 Last Admin: 01/28/18 02:40 Dose: 500 mls/hr Sodium Chloride (Normal Saline) 500 mls @ 500 mls/hr IV .BOLUS ONE Stop: 01/28/18 11:29 Last Admin: 01/28/18 11:20 Dose: 500 mls/hr Sodium Chloride (Normal Saline) 500 mls @ 500 mls/hr IV .BOLUS ONE Stop: 01/28/18 15:14 Last Admin: 01/28/18 15:24 Dose: 500 mls/hr Ketamine HCl (Ketalar) 36 mg IV ASDIRECTED [facility] Ketorolac Tromethamine (Toradol) 30 mg IVPUSH Q8H PRN PRN Reason: Pain Stop: 01/30/18 12:55 Last Admin: 01/28/18 23:02 Dose: 30 mg Lisinopril 10 mg/ Lisinopril (20 mg) 30 mg PO DAILY [facility] Last Admin: 01/28/18 11:47 Dose: Not Given Midazolam HCl (Versed 1 Mg/Ml) Confirm Administered Dose 2 mg .ROUTE .STK-MED ONE Stop: 01/27/18 07:30 Naloxone HCl (Narcan) 0.1 mg IVPUSH ASDIRECTED PRN PRN Reason: Oversedation Stop: 01/28/18 12:55 Oxycodone/Acetaminophen (Percocet 325-5 Mg) 2 tab PO Q4H PRN PRN Reason: Pain Last Admin: 01/29/18 06:16 Dose: 1 tab Alfuzosin Er 10mg ( (Ptom)) 0 each PO DAILY [facility] Povidone Iodine (Betadine 10% Soln) Confirm Administered Dose 1 ml .ROUTE .STK- MED ONE Stop: 01/27/18 09:55 Last Admin: 01/27/18 12:50 Dose: 10 ml Propofol (Diprivan 20 Ml) Confirm Administered Dose 200 mg .ROUTE .STK-MED ONE Stop: 01/27/18 07:30 Propofol (Diprivan 20 Ml) Confirm Administered Dose 200 mg .ROUTE .STK-MED ONE Stop: 01/27/18 11:47 Propofol (Diprivan 20 Ml) Confirm Administered Dose 200 mg .ROUTE .STK-MED ONE Stop: 01/27/18 12:20 Scopolamine (Transderm-Scop) 1.5 mg TOP Q72H [facility] Last Admin: 01/27/18 08:36 Dose: 1.5 mg Vancomycin HCl (Vancomycin) 1 gm IV .PHARMACY TO DOSE [facility] Stop: 01/27/18 16:00 - Exam Quality Assessment: No: Supplemental Oxygen General: Alert, Oriented, Cooperative, No Acute Distress Neck: Supple Lungs: Normal Respiratory Effort, Wheezing (mild lower lungs at end expiration) Cardiovascular: Regular Rate, Regular Rhythm GI/Abdominal Exam: Soft, No Distention Extremities: Pedal Edema (mild right foot) Skin: Warm, Dry Wound/Incisions: Dressing Dry and Intact Psy/Mental Status: Alert, Normal Affect - Problem List Review Problem List Initiated/Reviewed/Updated: Yes - My Orders Last 24 Hours: My Active Orders 01/28/18 20:27 Melatonin 3 mg PO BEDTIME PRN 01/28/18 21:40 Acetaminophen [Tylenol] 325 mg PO Q4H PRN 01/29/18 08:35 DC [place] Catheter [Urinary Catheter Removal] [RC] Per Unit Routine 01/29/18 10:38 Acetaminophen/oxyCODONE [Percocet 325-5 MG] 1 - 2 tab PO Q4H PRN 01/29/18 10:39 Convert IV to Saline Lock [OM.PC] Routine 01/29/18 10:40 Communication Order [RC] ROUTINE - Plan Plan:: ASSESSMENT AND PLAN Right knee osteoarthritis status post total right knee arthroplasty - minimal pain postoperatively. Vital signs are stable. -Postoperative cares per orthopedic team Fevers - most likely atelectasis plus or minus inflammation from surgery given timing. Knee pain is well-controlled at this time and I have a low suspicion for joint involvement or joint infection. He has remained hemodynamically stable with a temperature elevations. -Blood cultures 2 -Optimize pulmonary toilet -Hold off on antibiotics at this point Delirium - mixed type with some hallucinations and confusion. Suspect medication effect. -Discontinue scopolamine patch -Minimize narcotic use while maintaining pain control Hematuria - no hematuria preoperatively. Suspect irritation of the prostate while [place] catheter was inserted. hematuria seems to have resolved and [place] catheter was removed this morning. -Monitor urine output Coronary artery disease - history of both bypass surgery and stenting. No active symptoms at this time. blood pressure has been on the low side. -antihypertensives are still on hold at this time but blood pressures are improving Jarett Ponce M.D.
[2018-01-29] MEDS: Acetaminophen 325 MG Tab PO PRN (11:03)
[2018-01-29] MEDS: Levalbuterol HCl 0.63 MG/3 ML Neb NEB PRN (13:54)
[2018-01-29] MEDS: Ketorolac 30 MG/ML SDV IVPUSH PRN (14:46)
[2018-01-29] MEDS: CARVEDILOL 3.125 MG PO SCH (17:02)
[2018-01-29] MEDS: traMADol 50 MG Tab PO PRN (20:00)
[2018-01-29] MEDS: ALFUZOSIN 10 MG PO SCH (20:03)
[2018-01-29] MEDS: ROSUVASTATIN 10 MG PO SCH (20:04)
[2018-01-29] MEDS: Melatonin 3 MG Tab PO PRN (21:56)
[2018-01-30] MEDS: Acetaminophen/oxyCODONE 325-5 MG Tab PO PRN ×4 (02:14→22:28)
[2018-01-30] MEDS: Acetaminophen 325 MG Tab PO PRN ×2 (08:47→17:32)
[2018-01-30] MEDS: Ketorolac 30 MG/ML SDV IVPUSH PRN ×2 (08:48→17:33)
--- NOTE | 2018-01-30 10:30 | PCM.PN ---
- General Info Date of Service: 01/30/18 Functional Status: Reports: Pain Controlled, Tolerating Diet - Review of Systems General: Reports: Fever Pulmonary: Reports: Cough Cardiovascular: Reports: Edema Systems Review Comment:: Patient was febrile much of the night. He is shaky and diaphoretic with the temperature elevations. He has been coughing up yellow to green colored sputum and feels mildly short of breath. When he lays down he can hear himself wheezing. No complaints of chest pain. Knee pain is tolerable. Swelling of the lower leg is a little bit more impressive today. He did have a lower extremity ultrasound which was negative for DVT. - Patient Data Vitals - Most Recent: Last Vital Signs Temp 38.8 C H 01/30/18 08:47 Pulse 82 01/30/18 07:27 Resp 20 01/30/18 07:27 BP 136/55 L 01/30/18 07:27 Pulse Ox 92 L 01/30/18 07:27 Weight - Most Recent: 109.769 kg I&O - Last 24 Hours: Intake & Output 01/29/18 01/30/18 01/30/18 22:59 06:59 14:59 Intake Total 820 Balance 820 Med Orders - Current: Current Medications Acetaminophen (Tylenol) 325 mg PO Q4H PRN PRN Reason: Fever Last Admin: 01/30/18 08:47 Dose: 325 mg Al Hydroxide/Mg Hydroxide (Mag-Al Plus) 30 ml PO Q4H PRN PRN Reason: Constipation Aspirin (Halfprin) 81 mg PO DAILY [facility] Last Admin: 01/29/18 09:17 Dose: 81 mg Bisacodyl (Dulcolax) 10 mg PO DAILY PRN PRN Reason: Constipation Carvedilol (Coreg) 3.125 mg PO WITHDINNER [facility] Last Admin: 01/29/18 17:02 Dose: 3.125 mg Clopidogrel Bisulfate (Plavix) 75 mg PO DAILY [facility] Last Admin: 01/29/18 09:18 Dose: 75 mg Docusate Sodium (Colace) 100 mg PO BID PRN PRN Reason: Constipation Finasteride (Proscar) 5 mg PO DAILY [facility] Last Admin: 01/29/18 09:18 Dose: 5 mg Hydrochlorothiazide (Hydrochlorothiazide) 25 mg PO DAILY [facility] Ketorolac Tromethamine (Toradol) 30 mg IVPUSH Q6H PRN PRN Reason: Pain/Fever Stop: 02/03/18 13:22 Last Admin: 01/30/18 08:48 Dose: 30 mg Levalbuterol HCl (Xopenex) 0.63 mg NEB Q6H PRN PRN Reason: Shortness of Breath Last Admin: 01/29/18 13:54 Dose: 0.63 mg Magnesium Hydroxide (Milk Of Magnesia) 30 ml PO BID PRN PRN Reason: Constipation Melatonin (Melatonin) 3 mg PO BEDTIME PRN PRN Reason: Insomnia Last Admin: 01/29/18 21:56 Dose: 3 mg Morphine Sulfate (Morphine) 2 mg IVPUSH Q2H PRN PRN Reason: Pain Nitroglycerin (Nitrostat) 0.4 mg SL ASDIRECTED PRN PRN Reason: CHEST PAIN Ondansetron HCl (Zofran) 8 mg IVPUSH Q4H PRN PRN Reason: Nausea/Vomiting Oxycodone/Acetaminophen (Percocet 325-5 Mg) 1 - 2 tab PO Q4H PRN PRN Reason: Pain Last Admin: 01/30/18 08:47 Dose: 1 tab Alfuzosin Er 10mg ( (Ptom)) 0 each PO BEDTIME [facility] Last Admin: 01/29/18 20:03 Dose: 1 each Folic Acid 400mcg ( (Ptom)) 0 each PO DAILY [facility] Last Admin: 01/29/18 09:18 Dose: 1 each Lisinopril 30mg ( (Ptom)) 0 each PO DAILY [facility] Last Admin: 01/29/18 09:25 Dose: 1 each Rosuvastatin Calcium (Crestor) 15 mg PO BEDTIME [facility] Last Admin: 01/29/18 20:04 Dose: 15 mg Senna (Senna) 8.6 mg PO BID PRN PRN Reason: Constipation Sodium Chloride (Saline Flush) 10 ml FLUSH DAILY [facility] Last Admin: 01/29/18 09:19 Dose: 10 ml Tramadol HCl (Ultram) 100 mg PO Q6H PRN PRN Reason: Pain Last Admin: 01/29/18 20:00 Dose: 100 mg Valacyclovir HCl (Valtrex) 500 mg PO BID [facility] Last Admin: 01/29/18 20:05 Dose: Not Given Zolpidem Tartrate (Ambien) 5 mg PO BEDTIME PRN PRN Reason: Sleep Discontinued Medications Acetaminophen (Tylenol Extra Strength) 1,000 mg PO ONETIME ONE Stop: 01/27/18 07:41 Last Admin: 01/27/18 08:36 Dose: 1,000 mg Albuterol/Ipratropium (Duoneb 3.0-0.5 Mg/3 Ml) 3 ml NEB ONETIME ONE Stop: 01/27/18 10:01 Last Admin: 01/27/18 09:28 Dose: 3 ml Aspirin (Aspirin) 81 mg PO DAILY [facility] Last Admin: 01/28/18 08:27 Dose: 81 mg Ropivacaine 49.25 ml/Ketorolac Tromethamine 30 mg/Epinephrine HCl 0.5 mg/ Clonidine HCl 80 mcg/ Sodium Chloride 48.45 ml 0 ml INJECT ONETIME ONE Stop: 01/27/18 09:46 Last Admin: 01/27/18 12:27 Dose: 100 ml Tranexamic Acid 3,000 mg/ (Sodium Chloride 100 ml) 0 mg TOP ASDIRECTED [facility] Stop: 01/27/18 09:46 Last Admin: 01/27/18 12:26 Dose: 3,000 bag Diphenhydramine HCl (Benadryl) 25 mg IVPUSH Q4H PRN PRN Reason: Itching Ephedrine Sulfate (Ephedrine Sulfate) Confirm Administered Dose 50 mg .ROUTE .STK-MED ONE Stop: 01/27/18 11:58 Fentanyl (Sublimaze) Confirm Administered Dose 100 mcg .ROUTE .STK-MED ONE Stop: 01/27/18 07:30 Finasteride (Proscar) 5 mg PO DAILY [facility] Last Admin: 01/28/18 08:29 Dose: 5 mg Folic Acid (Folic Acid) 0.5 mg PO DAILY [facility] Last Admin: 01/28/18 08:28 Dose: 0.5 mg Gabapentin (Neurontin) 300 mg PO ONETIME ONE Stop: 01/27/18 07:41 Last Admin: 01/27/18 08:36 Dose: 300 mg Gentamicin Sulfate (Gentamicin) Confirm Administered Dose 240 mg .ROUTE .STK- MED ONE Stop: 01/27/18 09:55 Lactated Ringer's (Ringers, Lactated) 1,000 mls @ 0 mls/hr IV ASDIRECTED [facility] Last Admin: 01/27/18 08:37 Dose: 100 mls/hr Vancomycin HCl 1 gm/ Sodium (Chloride) 250 mls @ 150 mls/hr IV ONETIME ONE Stop: 01/27/18 09:39 Last Admin: 01/27/18 09:25 Dose: 150 mls/hr Lactated Ringer's (Ringers, Lactated) Confirm Administered Dose 1,000 mls @ as directed .ROUTE .STK-MED ONE Stop: 01/27/18 12:44 Lactated Ringer's (Ringers, Lactated) 1,000 mls @ 100 mls/hr IV ASDIRECTED [facility] Last Admin: 01/28/18 23:11 Dose: 100 mls/hr Vancomycin HCl 1.5 gm/ Sodium (Chloride) 250 mls @ 167 mls/hr IV ONETIME ONE Stop: 01/27/18 23:29 Last Admin: 01/27/18 21:43 Dose: 167 mls/hr Lactated Ringer's (Ringers, Lactated) 500 mls @ 500 mls/hr IV BOLUS [facility] Stop: 01/28/18 03:44 Last Admin: 01/28/18 02:40 Dose: 500 mls/hr Sodium Chloride (Normal Saline) 500 mls @ 500 mls/hr IV .BOLUS ONE Stop: 01/28/18 11:29 Last Admin: 01/28/18 11:20 Dose: 500 mls/hr Sodium Chloride (Normal Saline) 500 mls @ 500 mls/hr IV .BOLUS ONE Stop: 01/28/18 15:14 Last Admin: 01/28/18 15:24 Dose: 500 mls/hr Ketamine HCl (Ketalar) 36 mg IV ASDIRECTED [facility] Ketorolac Tromethamine (Toradol) 30 mg IVPUSH Q8H PRN PRN Reason: Pain Stop: 01/30/18 12:55 Last Admin: 01/28/18 23:02 Dose: 30 mg Lisinopril 10 mg/ Lisinopril (20 mg) 30 mg PO DAILY [facility] Last Admin: 01/28/18 11:47 Dose: Not Given Midazolam HCl (Versed 1 Mg/Ml) Confirm Administered Dose 2 mg .ROUTE .STK-MED ONE Stop: 01/27/18 07:30 Naloxone HCl (Narcan) 0.1 mg IVPUSH ASDIRECTED PRN PRN Reason: Oversedation Stop: 01/28/18 12:55 Oxycodone/Acetaminophen (Percocet 325-5 Mg) 2 tab PO Q4H PRN PRN Reason: Pain Last Admin: 01/29/18 06:16 Dose: 1 tab Alfuzosin Er 10mg ( (Ptom)) 0 each PO DAILY [facility] Povidone Iodine (Betadine 10% Soln) Confirm Administered Dose 1 ml .ROUTE .STK- MED ONE Stop: 01/27/18 09:55 Last Admin: 01/27/18 12:50 Dose: 10 ml Propofol (Diprivan 20 Ml) Confirm Administered Dose 200 mg .ROUTE .STK-MED ONE Stop: 01/27/18 07:30 Propofol (Diprivan 20 Ml) Confirm Administered Dose 200 mg .ROUTE .STK-MED ONE Stop: 01/27/18 11:47 Propofol (Diprivan 20 Ml) Confirm Administered Dose 200 mg .ROUTE .STK-MED ONE Stop: 01/27/18 12:20 Scopolamine (Transderm-Scop) 1.5 mg TOP Q72H [facility] Last Admin: 01/27/18 08:36 Dose: 1.5 mg Vancomycin HCl (Vancomycin) 1 gm IV .PHARMACY TO DOSE [facility] Stop: 01/27/18 16:00 - Exam Quality Assessment: No: Supplemental Oxygen General: Alert, Oriented, Cooperative, No Acute Distress Neck: Supple Lungs: Clear to Auscultation, Normal Respiratory Effort, Wheezing (rare right lower lung) Cardiovascular: Regular Rate, Regular Rhythm GI/Abdominal Exam: Soft, No Distention Extremities: Pedal Edema (right leg below the knee), Increased Warmth (around the knee joint) Psy/Mental Status: Alert, Normal Affect - Problem List Review Problem List Initiated/Reviewed/Updated: Yes - My Orders Last 24 Hours: My Active Orders 01/29/18 10:38 Acetaminophen/oxyCODONE [Percocet 325-5 MG] 1 - 2 tab PO Q4H PRN 01/29/18 10:39 Convert IV to Saline Lock [OM.PC] Routine 01/29/18 10:40 Communication Order [RC] ROUTINE 01/29/18 13:22 Ketorolac [Toradol] 30 mg IVPUSH Q6H PRN Blood Culture x2 Reflex Set [OM.PC] Urgent 01/29/18 13:25 CULTURE BLOOD [BC] Urgent 01/29/18 13:38 CULTURE BLOOD [BC] Urgent 01/30/18 08:34 CXR [Chest 1V Frontal] [CR] Routine 01/30/18 10:30 Azithromycin [Zithromax] 500 mg PO DAILY cefTRIAXone [Rocephin] 2 gm Sodium Chloride 0.9% [Normal Saline] 50 ml IV Q24H 01/31/18 05:00 BASIC METABOLIC PANEL,BMP [CHEM] Timed CBC W/O DIFF,HEMOGRAM [HEME] Timed (1) - Plan Plan:: ASSESSMENT AND PLAN Right knee osteoarthritis status post total right knee arthroplasty - minimal pain and doing well postoperatively -Postoperative cares per orthopedic team Probable acute bronchitis - no impressive infiltrate on chest x-ray. Patient has increased cough and has had fevers as well as shortness of breath. Blood cultures collected yesterday are negative so far. Only very mild wheezing at this time so I will hold off on steroids with his recent surgery. -Ceftriaxone and azithromycin -Supplement oxygen if needed -Nebulizers as needed -Optimize pulmonary toilet -Continue use of incentive spirometer Delirium - mixed type with some hallucinations and confusion. Suspect medication effect with significant improvement after scopolamine patch was discontinued. -Discontinue scopolamine patch -Minimize narcotic use while maintaining pain control Hematuria - no recurrence after [place] catheter was removed. -Monitor urine output Coronary artery disease - history of both bypass surgery and stenting. No active symptoms at this time. Blood pressure remains on the low side. -antihypertensives are still on hold at this time but blood pressures are improving Admission justification - patient will be transitioned to inpatient status at this time with fever and acute infection suspected. Jarett Ponce M.D.
[2018-01-30] MEDS: valACYclovir 1,000 MG Tab PO SCH ×2 (10:45→20:40)
[2018-01-30] MEDS: CLOPIDOGREL 75 MG PO SCH ×2 (10:45→10:55)
[2018-01-30] MEDS: Aspirin 81 MG Tab.EC (PTOM) PO SCH (10:46)
[2018-01-30] MEDS: FINASTERIDE 5 MG PO SCH (10:51)
[2018-01-30] MEDS: FOLIC ACID 400 MCG PO SCH (10:52)
[2018-01-30] MEDS: Azithromycin 250 MG Tab PO SCH (10:53)
[2018-01-30] MEDS: LISINOPRIL 30 MG PO SCH (10:55)
[2018-01-30] MEDS: Sodium Chloride 0.9% 10 ML Syringe FLUSH SCH (10:55)
[2018-01-30] MEDS: traMADol 50 MG Tab PO PRN (11:04)
[2018-01-30] MEDS: cefTRIAXone 2 GM in Sodium Chloride 0.9% 50 ML IV SCH (12:10)
[2018-01-30] MEDS: Levalbuterol HCl 0.63 MG/3 ML Neb NEB PRN (15:01)
[2018-01-30] MEDS: Carvedilol 3.125 MG Tab PO SCH (17:34)
[2018-01-30] MEDS: ALFUZOSIN 10 MG PO SCH (20:39)
[2018-01-30] MEDS: Rosuvastatin 10 MG Tab PO SCH (20:39)
[2018-01-30] MEDS: Melatonin 3 MG Tab PO PRN (22:29)
[2018-01-31] MEDS: traMADol 50 MG Tab PO PRN (00:22)
[2018-01-31] MEDS: Acetaminophen 325 MG Tab PO PRN (07:37)
[2018-01-31] MEDS: Acetaminophen/oxyCODONE 325-5 MG Tab PO PRN (07:37)
[2018-01-31] MEDS: Ketorolac 30 MG/ML SDV IVPUSH PRN ×2 (07:38→18:03)
[2018-01-31] MEDS: valACYclovir 1,000 MG Tab PO SCH ×2 (09:57→21:45)
[2018-01-31] MEDS: Clopidogrel 75 MG Tab PO SCH (09:58)
[2018-01-31] MEDS: Azithromycin 250 MG Tab PO SCH (09:58)
[2018-01-31] MEDS: FOLIC ACID 400 MCG PO SCH (09:59)
[2018-01-31] MEDS: Lisinopril 10 MG Tab PO SCH (10:00)
[2018-01-31] MEDS: Finasteride 5 MG Tab PO SCH (10:02)
[2018-01-31] MEDS: Hydrochlorothiazide 25 MG Tab PO SCH (10:03)
[2018-01-31] MEDS: Sodium Chloride 0.9% 10 ML Syringe FLUSH SCH (10:04)
[2018-01-31] MEDS: Aspirin 81 MG Tab.EC PO SCH (10:04)
[2018-01-31] MEDS: cefTRIAXone 2 GM in Sodium Chloride 0.9% 50 ML IV SCH (11:02)
--- NOTE | 2018-01-31 12:06 | PCM.PN ---
- General Info Date of Service: 01/31/18 Functional Status: Reports: Pain Controlled, Tolerating Diet - Review of Systems General: Reports: Fever Pulmonary: Reports: Cough Musculoskeletal: Reports: Joint Pain (right knee) Systems Review Comment:: still spiking fevers and still very symptomatic with fever. No significant knee pain but ongoing swelling and he has now developed a few small fluid-filled vesicles on the knee. Cough and breathing are much better today. Cultures remain negative. - Patient Data Vitals - Most Recent: Last Vital Signs Temp 37.2 C 01/31/18 10:51 Pulse 69 01/31/18 10:51 Resp 18 01/31/18 10:51 BP 110/71 01/31/18 10:51 Pulse Ox 93 L 01/31/18 10:51 Weight - Most Recent: 109.769 kg I&O - Last 24 Hours: Intake & Output 01/30/18 01/31/18 01/31/18 22:59 06:59 14:59 Intake Total 700 500 Balance 700 500 Lab Results Last 24 Hours: Laboratory Results - last 24 hr 01/31/18 01/31/18 Range/Units 05:24 05:24 WBC 8.5 (4.5-11.0) K/uL RBC 3.25 L (4.30-5.90) M/uL Hgb 9.9 L (12.0-15.0) g/dL Hct 29.1 L (40.0-54.0) % MCV 90 (80-98) fL MCH 31 (27-31) pg MCHC 34 (32-36) % Plt Count 137 L (150-400) K/uL Sodium 137 L (140-148) mmol/L Potassium 3.8 (3.6-5.2) mmol/L Chloride 100 (100-108) mmol/L Carbon Dioxide 29 (21-32) mmol/L Anion Gap 11.8 (5.0-14.0) mmol/L BUN 12 (7-18) mg/dL Creatinine 0.9 (0.8-1.3) mg/dL Est Cr Clr Drug Dosing 75.66 mL/min Estimated GFR (MDRD) > 60 (>60) Glucose 127 H (74-106) mg/dL Calcium 8.5 (8.5-10.1) mg/dL [place] Results Last 24 Hours: Microbiology 01/29/18 13:38 Aerobic Blood Culture - Preliminary Blood - Arm, Right NO GROWTH AFTER 1 DAY Anaerobic Blood Culture - Preliminary NO GROWTH AFTER 1 DAY 01/29/18 13:25 Aerobic Blood Culture - Preliminary Blood - Arm, Right NO GROWTH AFTER 1 DAY Anaerobic Blood Culture - Preliminary NO GROWTH AFTER 1 DAY Med Orders - Current: Current Medications Acetaminophen (Tylenol) 325 mg PO Q4H PRN PRN Reason: Fever Last Admin: 01/31/18 07:37 Dose: 325 mg Al Hydroxide/Mg Hydroxide (Mag-Al Plus) 30 ml PO Q4H PRN PRN Reason: Constipation Aspirin (Halfprin) 81 mg PO DAILY [facility] Last Admin: 01/31/18 10:04 Dose: 81 mg Azithromycin (Zithromax) 500 mg PO DAILY [facility] Last Admin: 01/31/18 09:58 Dose: 500 mg Bisacodyl (Dulcolax) 10 mg PO DAILY PRN PRN Reason: Constipation Carvedilol (Coreg) 3.125 mg PO WITHDINNER [facility] Last Admin: 01/30/18 17:34 Dose: 3.125 mg Clopidogrel Bisulfate (Plavix) 75 mg PO DAILY [facility] Last Admin: 01/31/18 09:58 Dose: 75 mg Docusate Sodium (Colace) 100 mg PO BID PRN PRN Reason: Constipation Finasteride (Proscar) 5 mg PO DAILY [facility] Last Admin: 01/31/18 10:02 Dose: 5 mg Hydrochlorothiazide (Hydrochlorothiazide) 25 mg PO DAILY [facility] Last Admin: 01/31/18 10:03 Dose: 25 mg Ceftriaxone Sodium 2 gm/ (Sodium Chloride) 50 mls @ 100 mls/hr IV Q24H [facility] Last Admin: 01/31/18 11:02 Dose: 100 mls/hr Ketorolac Tromethamine (Toradol) 30 mg IVPUSH Q6H PRN PRN Reason: Pain/Fever Stop: 02/03/18 13:22 Last Admin: 01/31/18 07:38 Dose: 30 mg Levalbuterol HCl (Xopenex) 0.63 mg NEB Q6H PRN PRN Reason: Shortness of Breath Last Admin: 01/30/18 15:01 Dose: 0.63 mg Lisinopril (Prinivil) 30 mg PO DAILY [facility] Last Admin: 01/31/18 10:00 Dose: 30 mg Magnesium Hydroxide (Milk Of Magnesia) 30 ml PO BID PRN PRN Reason: Constipation Melatonin (Melatonin) 3 mg PO BEDTIME PRN PRN Reason: Insomnia Last Admin: 01/30/18 22:29 Dose: 3 mg Morphine Sulfate (Morphine) 2 mg IVPUSH Q2H PRN PRN Reason: Pain Nitroglycerin (Nitrostat) 0.4 mg SL ASDIRECTED PRN PRN Reason: CHEST PAIN Ondansetron HCl (Zofran) 8 mg IVPUSH Q4H PRN PRN Reason: Nausea/Vomiting Oxycodone/Acetaminophen (Percocet 325-5 Mg) 1 - 2 tab PO Q4H PRN PRN Reason: Pain Last Admin: 01/31/18 07:37 Dose: 1 tab Alfuzosin Er 10mg ( (Ptom)) 0 each PO BEDTIME [facility] Last Admin: 01/30/18 20:39 Dose: 1 each Folic Acid 400mcg ( (Ptom)) 0 each PO DAILY [facility] Last Admin: 01/31/18 09:59 Dose: 1 each Rosuvastatin Calcium (Crestor) 15 mg PO BEDTIME [facility] Last Admin: 01/30/18 20:39 Dose: 15 mg Senna (Senna) 8.6 mg PO BID PRN PRN Reason: Constipation Sodium Chloride (Saline Flush) 10 ml FLUSH DAILY [facility] Last Admin: 01/31/18 10:04 Dose: 10 ml Tramadol HCl (Ultram) 100 mg PO Q6H PRN PRN Reason: Pain Last Admin: 01/31/18 00:22 Dose: 100 mg Valacyclovir HCl (Valtrex) 500 mg PO BID [facility] Last Admin: 01/31/18 09:57 Dose: 500 mg Zolpidem Tartrate (Ambien) 5 mg PO BEDTIME PRN PRN Reason: Sleep Discontinued Medications Acetaminophen (Tylenol Extra Strength) 1,000 mg PO ONETIME ONE Stop: 01/27/18 07:41 Last Admin: 01/27/18 08:36 Dose: 1,000 mg Albuterol/Ipratropium (Duoneb 3.0-0.5 Mg/3 Ml) 3 ml NEB ONETIME ONE Stop: 01/27/18 10:01 Last Admin: 01/27/18 09:28 Dose: 3 ml Aspirin (Aspirin) 81 mg PO DAILY [facility] Last Admin: 01/28/18 08:27 Dose: 81 mg Aspirin (Halfprin) 81 mg PO DAILY [facility] Last Admin: 01/30/18 10:46 Dose: 81 mg Carvedilol (Coreg) 3.125 mg PO WITHDINNER [facility] Last Admin: 01/29/18 17:02 Dose: 3.125 mg Clopidogrel Bisulfate (Plavix) 75 mg PO DAILY [facility] Last Admin: 01/30/18 10:55 Dose: 75 mg Ropivacaine 49.25 ml/Ketorolac Tromethamine 30 mg/Epinephrine HCl 0.5 mg/ Clonidine HCl 80 mcg/ Sodium Chloride 48.45 ml 0 ml INJECT ONETIME ONE Stop: 01/27/18 09:46 Last Admin: 01/27/18 12:27 Dose: 100 ml Tranexamic Acid 3,000 mg/ (Sodium Chloride 100 ml) 0 mg TOP ASDIRECTED [facility] Stop: 01/27/18 09:46 Last Admin: 01/27/18 12:26 Dose: 3,000 bag Diphenhydramine HCl (Benadryl) 25 mg IVPUSH Q4H PRN PRN Reason: Itching Ephedrine Sulfate (Ephedrine Sulfate) Confirm Administered Dose 50 mg .ROUTE .STK-MED ONE Stop: 01/27/18 11:58 Fentanyl (Sublimaze) Confirm Administered Dose 100 mcg .ROUTE .STK-MED ONE Stop: 01/27/18 07:30 Finasteride (Proscar) 5 mg PO DAILY [facility] Last Admin: 01/28/18 08:29 Dose: 5 mg Finasteride (Proscar) 5 mg PO DAILY [facility] Last Admin: 01/30/18 10:51 Dose: 5 mg Folic Acid (Folic Acid) 0.5 mg PO DAILY [facility] Last Admin: 01/28/18 08:28 Dose: 0.5 mg Gabapentin (Neurontin) 300 mg PO ONETIME ONE Stop: 01/27/18 07:41 Last Admin: 01/27/18 08:36 Dose: 300 mg Gentamicin Sulfate (Gentamicin) Confirm Administered Dose 240 mg .ROUTE .STK- MED ONE Stop: 01/27/18 09:55 Hydrochlorothiazide (Hydrochlorothiazide) 25 mg PO DAILY [facility] Last Admin: 01/30/18 10:46 Dose: 25 mg Lactated Ringer's (Ringers, Lactated) 1,000 mls @ 0 mls/hr IV ASDIRECTED [facility] Last Admin: 01/27/18 08:37 Dose: 100 mls/hr Vancomycin HCl 1 gm/ Sodium (Chloride) 250 mls @ 150 mls/hr IV ONETIME ONE Stop: 01/27/18 09:39 Last Admin: 01/27/18 09:25 Dose: 150 mls/hr Lactated Ringer's (Ringers, Lactated) Confirm Administered Dose 1,000 mls @ as directed .ROUTE .STK-MED ONE Stop: 01/27/18 12:44 Lactated Ringer's (Ringers, Lactated) 1,000 mls @ 100 mls/hr IV ASDIRECTED [facility] Last Admin: 01/28/18 23:11 Dose: 100 mls/hr Vancomycin HCl 1.5 gm/ Sodium (Chloride) 250 mls @ 167 mls/hr IV ONETIME ONE Stop: 01/27/18 23:29 Last Admin: 01/27/18 21:43 Dose: 167 mls/hr Lactated Ringer's (Ringers, Lactated) 500 mls @ 500 mls/hr IV BOLUS [facility] Stop: 01/28/18 03:44 Last Admin: 01/28/18 02:40 Dose: 500 mls/hr Sodium Chloride (Normal Saline) 500 mls @ 500 mls/hr IV .BOLUS ONE Stop: 01/28/18 11:29 Last Admin: 01/28/18 11:20 Dose: 500 mls/hr Sodium Chloride (Normal Saline) 500 mls @ 500 mls/hr IV .BOLUS ONE Stop: 01/28/18 15:14 Last Admin: 01/28/18 15:24 Dose: 500 mls/hr Ketamine HCl (Ketalar) 36 mg IV ASDIRECTED [facility] Ketorolac Tromethamine (Toradol) 30 mg IVPUSH Q8H PRN PRN Reason: Pain Stop: 01/30/18 12:55 Last Admin: 01/28/18 23:02 Dose: 30 mg Lisinopril 10 mg/ Lisinopril (20 mg) 30 mg PO DAILY [facility] Last Admin: 01/28/18 11:47 Dose: Not Given Midazolam HCl (Versed 1 Mg/Ml) Confirm Administered Dose 2 mg .ROUTE .STK-MED ONE Stop: 01/27/18 07:30 Naloxone HCl (Narcan) 0.1 mg IVPUSH ASDIRECTED PRN PRN Reason: Oversedation Stop: 01/28/18 12:55 Oxycodone/Acetaminophen (Percocet 325-5 Mg) 2 tab PO Q4H PRN PRN Reason: Pain Last Admin: 01/29/18 06:16 Dose: 1 tab Alfuzosin Er 10mg ( (Ptom)) 0 each PO DAILY [facility] Lisinopril 30mg ( (Ptom)) 0 each PO DAILY [facility] Last Admin: 01/30/18 10:55 Dose: 1 each Povidone Iodine (Betadine 10% Soln) Confirm Administered Dose 1 ml .ROUTE .STK- MED ONE Stop: 01/27/18 09:55 Last Admin: 01/27/18 12:50 Dose: 10 ml Propofol (Diprivan 20 Ml) Confirm Administered Dose 200 mg .ROUTE .STK-MED ONE Stop: 01/27/18 07:30 Propofol (Diprivan 20 Ml) Confirm Administered Dose 200 mg .ROUTE .STK-MED ONE Stop: 01/27/18 11:47 Propofol (Diprivan 20 Ml) Confirm Administered Dose 200 mg .ROUTE .STK-MED ONE Stop: 01/27/18 12:20 Rosuvastatin Calcium (Crestor) 15 mg PO BEDTIME [facility] Last Admin: 01/29/18 20:04 Dose: 15 mg Scopolamine (Transderm-Scop) 1.5 mg TOP Q72H [facility] Last Admin: 01/27/18 08:36 Dose: 1.5 mg Vancomycin HCl (Vancomycin) 1 gm IV .PHARMACY TO DOSE [facility] Stop: 01/27/18 16:00 - Exam Quality Assessment: No: Supplemental Oxygen General: Alert, Oriented, Cooperative, No Acute Distress Neck: Supple Lungs: Clear to Auscultation, Normal Respiratory Effort Cardiovascular: Regular Rate, Regular Rhythm GI/Abdominal Exam: Soft, No Distention Extremities: Pedal Edema (right leg below the knee), Increased Warmth (mild around the staple line) Skin: Warm, Dry, Other (<1 cm vesicle lateral to upper aspect of incision and similar inferomedial to incision. 2 cm skin tear/abrasion inferolateral to incision from tape removal) Wound/Incisions: Healing Well, No Drainage Psy/Mental Status: Alert, Normal Affect - Problem List Review Problem List Initiated/Reviewed/Updated: Yes - My Orders Last 24 Hours: My Active Orders 01/30/18 11:56 Patient Status [ADT] Routine - Plan Plan:: ASSESSMENT AND PLAN Right knee osteoarthritis status post total right knee arthroplasty - minimal pain and doing well postoperatively. he does have some fluid-filled blisters within a couple of centimeters of the incision raising some concern for cellulitis. Cultures are negative. -Vancomycin -Postoperative cares per orthopedic team Probable acute bronchitis - no impressive infiltrate on chest x-ray. cough and shortness of breath as well as oxygenation have improved. -Ceftriaxone and azithromycin -Supplement oxygen if needed -Nebulizers as needed -Optimize pulmonary toilet -Continue use of incentive spirometer Delirium - mixed type with some hallucinations and confusion. Suspect medication effect with significant improvement after scopolamine patch was discontinued. -Discontinue scopolamine patch -Minimize narcotic use while maintaining pain control Hematuria - no recurrence after [place] catheter was removed. -Monitor urine output Coronary artery disease - history of both bypass surgery and stenting. No active symptoms at this time. Blood pressure remains on the low side. -antihypertensives are still on hold at this time but blood pressures are improving Admission justification - patient will be transitioned to inpatient status at this time with fever and acute infection suspected. Jarett Ponce M.D.
[2018-01-31] MEDS: Acetaminophen 500 MG Tab PO SCH ×2 (13:57→21:43)
[2018-01-31] MEDS: Carvedilol 3.125 MG Tab PO SCH (16:58)
[2018-01-31] MEDS: oxyCODONE 5 MG Tab PO PRN ×3 (17:06→23:28)
[2018-01-31] MEDS: Levalbuterol HCl 0.63 MG/3 ML Neb NEB PRN (18:03)
[2018-01-31] MEDS: Rosuvastatin 10 MG Tab PO SCH (21:42)
[2018-01-31] MEDS: Pantoprazole 40 MG Tab.CR PO SCH (21:42)
[2018-01-31] MEDS: ALFUZOSIN 10 MG PO SCH (21:43)
[2018-01-31] MEDS: Melatonin 3 MG Tab PO PRN (21:44)
[2018-02-01] MEDS: oxyCODONE 5 MG Tab PO PRN (07:15)
[2018-02-01] MEDS: Aspirin 81 MG Tab.EC PO SCH (08:11)
[2018-02-01] MEDS: Azithromycin 250 MG Tab PO SCH (08:11)
[2018-02-01] MEDS: FOLIC ACID 400 MCG PO SCH (08:11)
[2018-02-01] MEDS: Acetaminophen 500 MG Tab PO SCH ×3 (08:11→20:24)
[2018-02-01] MEDS: Finasteride 5 MG Tab PO SCH (08:11)
[2018-02-01] MEDS: Clopidogrel 75 MG Tab PO SCH (08:11)
[2018-02-01] MEDS: Sodium Chloride 0.9% 10 ML Syringe FLUSH SCH (08:12)
[2018-02-01] MEDS: Hydrochlorothiazide 25 MG Tab PO SCH (08:12)
[2018-02-01] MEDS: Lisinopril 10 MG Tab PO SCH (08:12)
[2018-02-01] MEDS: valACYclovir 1,000 MG Tab PO SCH ×2 (08:13→20:23)
[2018-02-01] MEDS: Ketorolac 30 MG/ML SDV IVPUSH PRN (08:14)
--- NOTE | 2018-02-01 09:18 | US ---
VL Duplex Lwr Ext Veins Ltd Rt FINDINGS: Duplex imaging was performed from the right common femoral through the popliteal veins. The veins demonstrate complete compressibility without evidence of intraluminal thrombus. There is karen l phasic variation of the waveforms with respiration. There is augmented flow with calf compression. IMPRESSION: There is no evidence for right lower extremity deep venous thrombosis.
--- NOTE | 2018-02-01 09:19 | CR ---
Portable chest Comparison: January 2016 There is mild hyperinflation. Intact sternal wires are demonstrated. There is cardiac enlargement. Th e vascular structures are stable. There are no infiltrates or effusions. Impression: 1. No acute findings.
--- NOTE | 2018-02-01 10:44 | PCM.PN ---
- General Info Date of Service: 02/01/18 Subjective Update: Akash has unfortunately had recurrent temperature elevations over the past 24 hours continues to show evidence of upper respiratory tract infection. White blood cell count remains normal despite significant temperature elevations, likely consistent with viral infection. He does have some areas of blister around the knee but this seems more related to the tape used with the postoperative surgical dressing then underlying infection. The wound itself looks good with no obvious drainage or significant erythema. - Review of Systems General: Reports: Fever, Weakness, Chills Pulmonary: Reports: Cough, Sputum, Wheezing. Denies: Pleuritic Chest Pain, Hemoptysis Cardiovascular: Reports: No Symptoms Gastrointestinal: Reports: No Symptoms Genitourinary: Reports: No Symptoms - Patient Data Vitals - Most Recent: Last Vital Signs Temp 100.5 F 02/01/18 09:16 Pulse 86 02/01/18 07:47 Resp 20 02/01/18 07:47 BP 131/64 02/01/18 08:12 Pulse Ox 91 L 02/01/18 07:47 Weight - Most Recent: 241 lb 15.987 oz I&O - Last 24 Hours: Intake & Output 01/31/18 02/01/18 02/01/18 22:59 06:59 14:59 Intake Total 750 400 Balance 750 400 Lab Results Last 24 Hours: Laboratory Results - last 24 hr 01/31/18 02/01/18 02/01/18 Range/Units 14:06 08:42 08:42 WBC 8.6 (4.5-11.0) K/uL RBC 3.19 L (4.30-5.90) M/uL Hgb 9.6 L (12.0-15.0) g/dL Hct 28.5 L (40.0-54.0) % MCV 89 (80-98) fL MCH 30 (27-31) pg MCHC 34 (32-36) % Plt Count 165 (150-400) K/uL Neut % (Auto) 77 H (36-66) % Lymph % (Auto) 8 L (24-44) % [place] % (Auto) 11 H (2-6) % Eos % (Auto) 4 (2-4) % Baso % (Auto) 0 (0-1) % Sodium 137 L (140-148) mmol/L Potassium 3.9 (3.6-5.2) mmol/L Chloride 100 (100-108) mmol/L Carbon Dioxide 28 (21-32) mmol/L Anion Gap 12.9 (5.0-14.0) mmol/L BUN 12 (7-18) mg/dL Creatinine 0.9 (0.8-1.3) mg/dL Est Cr Clr Drug Dosing 75.66 mL/min Estimated GFR (MDRD) > 60 (>60) Glucose 132 H (74-106) mg/dL Calcium 8.1 L (8.5-10.1) mg/dL Total Bilirubin 1.5 H D (0.2-1.0) mg/dL AST 36 (15-37) U/L ALT 33 (12-78) U/L Alkaline Phosphatase 92 (46-116) U/L C-Reactive Protein 10.19 H (0.0-0.3) mg/dL Total Protein 6.5 (6.4-8.2) g/dL Albumin 2.9 L (3.4-5.0) g/dL Globulin 3.6 H (2.3-3.5) g/dL Albumin/Globulin Ratio 0.8 L (1.2-2.2) Urine Color Yellow Urine Appearance Slightly cloudy Urine pH 6.0 (4.5-8.0) Ur Specific [place] 1.020 (1.008-1.030) Urine Protein Negative (NEGATIVE) mg/dL Urine Glucose (UA) Normal (NEGATIVE) mg/dL Urine Ketones Negative (NEGATIVE) mg/dL Urine Occult Blood Large (NEGATIVE) Urine Nitrite Negative (NEGAITVE) Urine Bilirubin Negative (NEGATIVE) Urine Urobilinogen Normal (NORMAL) mg/dL Ur Leukocyte Esterase Negative (NEGATIVE) Urine RBC 40-50 H (0-5) Urine WBC 0-5 (0-5) Ur Epithelial Cells Rare Amorphous Sediment Not seen Urine Bacteria Few Urine Mucus Moderate [place] Results Last 24 Hours: Microbiology 01/29/18 13:38 Aerobic Blood Culture - Preliminary Blood - Arm, Right NO GROWTH AFTER 2 DAYS Anaerobic Blood Culture - Preliminary NO GROWTH AFTER 2 DAYS 01/29/18 13:25 Aerobic Blood Culture - Preliminary Blood - Arm, Right NO GROWTH AFTER 2 DAYS Anaerobic Blood Culture - Preliminary NO GROWTH AFTER 2 DAYS Med Orders - Current: Current Medications Acetaminophen (Tylenol Extra Strength) 1,000 mg PO TID [facility] Last Admin: 02/01/18 08:11 Dose: 1,000 mg Al Hydroxide/Mg Hydroxide (Mag-Al Plus) 30 ml PO Q4H PRN PRN Reason: Constipation Aspirin (Halfprin) 81 mg PO DAILY [facility] Last Admin: 02/01/18 08:11 Dose: 81 mg Azithromycin (Zithromax) 500 mg PO DAILY [facility] Last Admin: 02/01/18 08:11 Dose: 500 mg Bisacodyl (Dulcolax) 10 mg PO DAILY PRN PRN Reason: Constipation Carvedilol (Coreg) 3.125 mg PO WITHDINNER [facility] Last Admin: 01/31/18 16:58 Dose: 3.125 mg Clopidogrel Bisulfate (Plavix) 75 mg PO DAILY [facility] Last Admin: 02/01/18 08:11 Dose: 75 mg Docusate Sodium (Colace) 100 mg PO BID PRN PRN Reason: Constipation Finasteride (Proscar) 5 mg PO DAILY [facility] Last Admin: 02/01/18 08:11 Dose: 5 mg Hydrochlorothiazide (Hydrochlorothiazide) 25 mg PO DAILY [facility] Last Admin: 02/01/18 08:12 Dose: 25 mg Ceftriaxone Sodium 2 gm/ (Sodium Chloride) 50 mls @ 100 mls/hr IV Q24H [facility] Last Admin: 01/31/18 11:02 Dose: 100 mls/hr Vancomycin HCl 1.5 gm/ Sodium (Chloride) 250 mls @ 150 mls/hr IV Q12H [facility] Last Admin: 02/01/18 02:49 Dose: 150 mls/hr Ketorolac Tromethamine (Toradol) 30 mg IVPUSH Q6H PRN PRN Reason: Pain/Fever Stop: 02/03/18 13:22 Last Admin: 02/01/18 08:14 Dose: 30 mg Levalbuterol HCl (Xopenex) 0.63 mg NEB Q6H PRN PRN Reason: Shortness of Breath Last Admin: 01/31/18 18:03 Dose: 0.63 mg Lisinopril (Prinivil) 30 mg PO DAILY [facility] Last Admin: 02/01/18 08:12 Dose: 30 mg Magnesium Hydroxide (Milk Of Magnesia) 30 ml PO BID PRN PRN Reason: Constipation Melatonin (Melatonin) 3 mg PO BEDTIME PRN PRN Reason: Insomnia Last Admin: 01/31/18 21:44 Dose: 3 mg Morphine Sulfate (Morphine) 2 mg IVPUSH Q2H PRN PRN Reason: Pain Nitroglycerin (Nitrostat) 0.4 mg SL ASDIRECTED PRN PRN Reason: CHEST PAIN Ondansetron HCl (Zofran) 8 mg IVPUSH Q4H PRN PRN Reason: Nausea/Vomiting Oxycodone HCl (Oxycodone) 5 - 10 mg PO Q4H PRN PRN Reason: Pain Last Admin: 02/01/18 07:15 Dose: 10 mg Pantoprazole Sodium (Protonix) 40 mg PO BEDTIME [facility] Last Admin: 01/31/18 21:42 Dose: 40 mg Alfuzosin Er 10mg ( (Ptom)) 0 each PO BEDTIME [facility] Last Admin: 01/31/18 21:43 Dose: Not Given Folic Acid 400mcg ( (Ptom)) 0 each PO DAILY [facility] Last Admin: 02/01/18 08:11 Dose: 1 each Rosuvastatin Calcium (Crestor) 15 mg PO BEDTIME [facility] Last Admin: 01/31/18 21:42 Dose: 15 mg Senna (Senna) 8.6 mg PO BID PRN PRN Reason: Constipation Sodium Chloride (Saline Flush) 10 ml FLUSH DAILY [facility] Last Admin: 02/01/18 08:12 Dose: 10 ml Tramadol HCl (Ultram) 100 mg PO Q6H PRN PRN Reason: Pain Last Admin: 01/31/18 00:22 Dose: 100 mg Valacyclovir HCl (Valtrex) 500 mg PO BID [facility] Last Admin: 02/01/18 08:13 Dose: Not Given Zolpidem Tartrate (Ambien) 5 mg PO BEDTIME PRN PRN Reason: Sleep Discontinued Medications Acetaminophen (Tylenol Extra Strength) 1,000 mg PO ONETIME ONE Stop: 01/27/18 07:41 Last Admin: 01/27/18 08:36 Dose: 1,000 mg Acetaminophen (Tylenol) 325 mg PO Q4H PRN PRN Reason: Fever Last Admin: 01/31/18 07:37 Dose: 325 mg Albuterol/Ipratropium (Duoneb 3.0-0.5 Mg/3 Ml) 3 ml NEB ONETIME ONE Stop: 01/27/18 10:01 Last Admin: 01/27/18 09:28 Dose: 3 ml Aspirin (Aspirin) 81 mg PO DAILY [facility] Last Admin: 01/28/18 08:27 Dose: 81 mg Aspirin (Halfprin) 81 mg PO DAILY [facility] Last Admin: 01/30/18 10:46 Dose: 81 mg Carvedilol (Coreg) 3.125 mg PO WITHDINNER [facility] Last Admin: 01/29/18 17:02 Dose: 3.125 mg Clopidogrel Bisulfate (Plavix) 75 mg PO DAILY [facility] Last Admin: 01/30/18 10:55 Dose: 75 mg Ropivacaine 49.25 ml/Ketorolac Tromethamine 30 mg/Epinephrine HCl 0.5 mg/ Clonidine HCl 80 mcg/ Sodium Chloride 48.45 ml 0 ml INJECT ONETIME ONE Stop: 01/27/18 09:46 Last Admin: 01/27/18 12:27 Dose: 100 ml Tranexamic Acid 3,000 mg/ (Sodium Chloride 100 ml) 0 mg TOP ASDIRECTED [facility] Stop: 01/27/18 09:46 Last Admin: 01/27/18 12:26 Dose: 3,000 bag Diphenhydramine HCl (Benadryl) 25 mg IVPUSH Q4H PRN PRN Reason: Itching Ephedrine Sulfate (Ephedrine Sulfate) Confirm Administered Dose 50 mg .ROUTE .STK-MED ONE Stop: 01/27/18 11:58 Fentanyl (Sublimaze) Confirm Administered Dose 100 mcg .ROUTE .STK-MED ONE Stop: 01/27/18 07:30 Finasteride (Proscar) 5 mg PO DAILY [facility] Last Admin: 01/28/18 08:29 Dose: 5 mg Finasteride (Proscar) 5 mg PO DAILY [facility] Last Admin: 01/30/18 10:51 Dose: 5 mg Folic Acid (Folic Acid) 0.5 mg PO DAILY [facility] Last Admin: 01/28/18 08:28 Dose: 0.5 mg Gabapentin (Neurontin) 300 mg PO ONETIME ONE Stop: 01/27/18 07:41 Last Admin: 01/27/18 08:36 Dose: 300 mg Gentamicin Sulfate (Gentamicin) Confirm Administered Dose 240 mg .ROUTE .STK- MED ONE Stop: 01/27/18 09:55 Hydrochlorothiazide (Hydrochlorothiazide) 25 mg PO DAILY [facility] Last Admin: 01/30/18 10:46 Dose: 25 mg Lactated Ringer's (Ringers, Lactated) 1,000 mls @ 0 mls/hr IV ASDIRECTED [facility] Last Admin: 01/27/18 08:37 Dose: 100 mls/hr Vancomycin HCl 1 gm/ Sodium (Chloride) 250 mls @ 150 mls/hr IV ONETIME ONE Stop: 01/27/18 09:39 Last Admin: 01/27/18 09:25 Dose: 150 mls/hr Lactated Ringer's (Ringers, Lactated) Confirm Administered Dose 1,000 mls @ as directed .ROUTE .STK-MED ONE Stop: 01/27/18 12:44 Lactated Ringer's (Ringers, Lactated) 1,000 mls @ 100 mls/hr IV ASDIRECTED [facility] Last Admin: 01/28/18 23:11 Dose: 100 mls/hr Vancomycin HCl 1.5 gm/ Sodium (Chloride) 250 mls @ 167 mls/hr IV ONETIME ONE Stop: 01/27/18 23:29 Last Admin: 01/27/18 21:43 Dose: 167 mls/hr Lactated Ringer's (Ringers, Lactated) 500 mls @ 500 mls/hr IV BOLUS [facility] Stop: 01/28/18 03:44 Last Admin: 01/28/18 02:40 Dose: 500 mls/hr Sodium Chloride (Normal Saline) 500 mls @ 500 mls/hr IV .BOLUS ONE Stop: 01/28/18 11:29 Last Admin: 01/28/18 11:20 Dose: 500 mls/hr Sodium Chloride (Normal Saline) 500 mls @ 500 mls/hr IV .BOLUS ONE Stop: 01/28/18 15:14 Last Admin: 01/28/18 15:24 Dose: 500 mls/hr Ketamine HCl (Ketalar) 36 mg IV ASDIRECTED [facility] Ketorolac Tromethamine (Toradol) 30 mg IVPUSH Q8H PRN PRN Reason: Pain Stop: 01/30/18 12:55 Last Admin: 01/28/18 23:02 Dose: 30 mg Lisinopril 10 mg/ Lisinopril (20 mg) 30 mg PO DAILY [facility] Last Admin: 01/28/18 11:47 Dose: Not Given Midazolam HCl (Versed 1 Mg/Ml) Confirm Administered Dose 2 mg .ROUTE .STK-MED ONE Stop: 01/27/18 07:30 Naloxone HCl (Narcan) 0.1 mg IVPUSH ASDIRECTED PRN PRN Reason: Oversedation Stop: 01/28/18 12:55 Oxycodone/Acetaminophen (Percocet 325-5 Mg) 2 tab PO Q4H PRN PRN Reason: Pain Last Admin: 01/29/18 06:16 Dose: 1 tab Oxycodone/Acetaminophen (Percocet 325-5 Mg) 1 - 2 tab PO Q4H PRN PRN Reason: Pain Last Admin: 01/31/18 07:37 Dose: 1 tab Alfuzosin Er 10mg ( (Ptom)) 0 each PO DAILY [facility] Lisinopril 30mg ( (Ptom)) 0 each PO DAILY [facility] Last Admin: 01/30/18 10:55 Dose: 1 each Povidone Iodine (Betadine 10% Soln) Confirm Administered Dose 1 ml .ROUTE .STK- MED ONE Stop: 01/27/18 09:55 Last Admin: 01/27/18 12:50 Dose: 10 ml Propofol (Diprivan 20 Ml) Confirm Administered Dose 200 mg .ROUTE .STK-MED ONE Stop: 01/27/18 07:30 Propofol (Diprivan 20 Ml) Confirm Administered Dose 200 mg .ROUTE .STK-MED ONE Stop: 01/27/18 11:47 Propofol (Diprivan 20 Ml) Confirm Administered Dose 200 mg .ROUTE .STK-MED ONE Stop: 01/27/18 12:20 Rosuvastatin Calcium (Crestor) 15 mg PO BEDTIME [facility] Last Admin: 01/29/18 20:04 Dose: 15 mg Scopolamine (Transderm-Scop) 1.5 mg TOP Q72H [facility] Last Admin: 01/27/18 08:36 Dose: 1.5 mg Vancomycin HCl (Vancomycin) 1 gm IV .PHARMACY TO DOSE [facility] Stop: 01/27/18 16:00 - Exam Quality Assessment: DVT Prophylaxis. No: Supplemental Oxygen, Urine Catheter General: Alert, Oriented, Cooperative Lungs: Rhonchi, Wheezing. No: Crackles, Rales, Rub, Stridor Cardiovascular: Regular Rate, Regular Rhythm, No Murmurs GI/Abdominal Exam: Soft, Non-Tender, No Organomegaly, No Distention Extremities: Non-Tender, Pedal Edema - Problem List Review Problem List Initiated/Reviewed/Updated: Yes - My Orders Last 24 Hours: My Active Orders 02/01/18 10:39 INFLUENZA A+B AG SCREEN [RM] Urgent 02/02/18 05:00 CBC WITH AUTO DIFF [HEME] Timed COMPREHENSIVE METABOLIC PN,CMP [CHEM] Timed - Plan Plan:: ASSESSMENT AND PLAN Right knee osteoarthritis status post total right knee arthroplasty - minimal pain and doing well postoperatively. he does have some fluid-filled blisters within a couple of centimeters of the incision raising some concern for cellulitis. Cultures are negative. -Vancomycin -Postoperative cares per orthopedic team Probable acute bronchitis - no impressive infiltrate on chest x-ray. Further improvement in cough and shortness of breath, white blood cell count remains normal. Probable underlying viral respiratory tract infection causing current fever -Influenza a and B antigens -Ceftriaxone and azithromycin -Supplement oxygen if needed -Nebulizers as needed -Optimize pulmonary toilet -Continue use of incentive spirometer Delirium - resolved -Minimize narcotic use while maintaining pain control Hematuria - no recurrence after [place] catheter was removed. -Monitor urine output Coronary artery disease - history of both bypass surgery and stenting. No active symptoms at this time. Blood pressure remains on the low side. -antihypertensives are still on hold at this time but blood pressures are improving Admission justification - patient will be transitioned to inpatient status at this time with fever and acute infection suspected.
[2018-02-01] MEDS: cefTRIAXone 2 GM in Sodium Chloride 0.9% 50 ML IV SCH (11:56)
[2018-02-01] MEDS ORDERED: Furosemide 20 MG/2 ML VIAL IVPUSH ONE (16:00)
[2018-02-01] MEDS: Carvedilol 3.125 MG Tab PO SCH (18:37)
[2018-02-01] MEDS: ALFUZOSIN 10 MG PO SCH (20:24)
[2018-02-01] MEDS: Rosuvastatin 10 MG Tab PO SCH (20:24)
[2018-02-01] MEDS: Pantoprazole 40 MG Tab.CR PO SCH (20:24)
[2018-02-01] MEDS: Zolpidem 5 MG Tab PO PRN (20:24)
[2018-02-02] MEDS: Ketorolac 30 MG/ML SDV IVPUSH PRN (02:55)
[2018-02-02] MEDS: Levalbuterol HCl 0.63 MG/3 ML Neb NEB PRN (03:00)
--- NOTE | 2018-02-02 07:16 | PCM.PN ---
- General Info Date of Service: 02/01/18 Functional Status: Reports: Pain Controlled, Tolerating Diet, Ambulating - Review of Systems General: Reports: No Symptoms HEENT: Reports: No Symptoms Pulmonary: Reports: Other Cardiovascular: Reports: No Symptoms Gastrointestinal: Reports: No Symptoms Genitourinary: Reports: No Symptoms Musculoskeletal: Reports: Joint Pain Skin: Reports: No Symptoms Neurological: Reports: No Symptoms Psychiatric: Reports: No Symptoms - Patient Data Vitals - Most Recent: Last Vital Signs Temp 100.1 F 02/02/18 06:24 Pulse 86 02/02/18 02:44 Resp 20 02/02/18 02:44 BP 152/99 H 02/02/18 02:44 Pulse Ox 93 L 02/02/18 02:44 Weight - Most Recent: 266 lb I&O - Last 24 Hours: Intake & Output 02/01/18 02/02/18 02/02/18 22:59 06:59 14:59 Intake Total 1320 200 Output Total 2950 925 Balance -1630 -725 Lab Results Last 24 Hours: Laboratory Results - last 24 hr 02/01/18 02/01/18 02/02/18 Range/Units 08:42 08:42 05:00 WBC 8.6 7.7 (4.5-11.0) K/uL RBC 3.19 L 3.19 L (4.30-5.90) M/uL Hgb 9.6 L 9.6 L (12.0-15.0) g/dL Hct 28.5 L 28.5 L (40.0-54.0) % MCV 89 89 (80-98) fL MCH 30 30 (27-31) pg MCHC 34 34 (32-36) % Plt Count 165 182 (150-400) K/uL Neut % (Auto) 77 H 74 H (36-66) % Lymph % (Auto) 8 L 10 L (24-44) % Villalba % (Auto) 11 H 12 H (2-6) % Eos % (Auto) 4 4 (2-4) % Baso % (Auto) 0 0 (0-1) % Sodium 137 L (140-148) mmol/L Potassium 3.9 (3.6-5.2) mmol/L Chloride 100 (100-108) mmol/L Carbon Dioxide 28 (21-32) mmol/L Anion Gap 12.9 (5.0-14.0) mmol/L BUN 12 (7-18) mg/dL Creatinine 0.9 (0.8-1.3) mg/dL Est Cr Clr Drug Dosing 75.66 mL/min Estimated GFR (MDRD) > 60 (>60) Glucose 132 H (74-106) mg/dL Calcium 8.1 L (8.5-10.1) mg/dL Total Bilirubin 1.5 H D (0.2-1.0) mg/dL AST 36 (15-37) U/L ALT 33 (12-78) U/L Alkaline Phosphatase 92 (46-116) U/L C-Reactive Protein 10.19 H (0.0-0.3) mg/dL Total Protein 6.5 (6.4-8.2) g/dL Albumin 2.9 L (3.4-5.0) g/dL Globulin 3.6 H (2.3-3.5) g/dL Albumin/Globulin Ratio 0.8 L (1.2-2.2) 02/02/18 Range/Units 05:00 WBC (4.5-11.0) K/uL RBC (4.30-5.90) M/uL Hgb (12.0-15.0) g/dL Hct (40.0-54.0) % MCV (80-98) fL MCH (27-31) pg MCHC (32-36) % Plt Count (150-400) K/uL Neut % (Auto) (36-66) % Lymph % (Auto) (24-44) % Villalba % (Auto) (2-6) % Eos % (Auto) (2-4) % Baso % (Auto) (0-1) % Sodium 138 L (140-148) mmol/L Potassium 3.2 L (3.6-5.2) mmol/L Chloride 100 (100-108) mmol/L Carbon Dioxide 26 (21-32) mmol/L Anion Gap 15.2 H (5.0-14.0) mmol/L BUN 9 (7-18) mg/dL Creatinine 0.8 (0.8-1.3) mg/dL Est Cr Clr Drug Dosing 85.12 mL/min Estimated GFR (MDRD) > 60 (>60) Glucose 134 H (74-106) mg/dL Calcium 8.2 L (8.5-10.1) mg/dL Total Bilirubin 1.4 H (0.2-1.0) mg/dL AST 38 H (15-37) U/L ALT 40 (12-78) U/L Alkaline Phosphatase 91 (46-116) U/L C-Reactive Protein (0.0-0.3) mg/dL Total Protein 6.5 (6.4-8.2) g/dL Albumin 2.6 L (3.4-5.0) g/dL Globulin 3.9 H (2.3-3.5) g/dL Albumin/Globulin Ratio 0.7 L (1.2-2.2) Chetan Results Last 24 Hours: Microbiology 01/29/18 13:38 Aerobic Blood Culture - Preliminary Blood - Arm, Right NO GROWTH AFTER 3 DAYS Anaerobic Blood Culture - Preliminary NO GROWTH AFTER 3 DAYS 01/29/18 13:25 Aerobic Blood Culture - Preliminary Blood - Arm, Right NO GROWTH AFTER 3 DAYS Anaerobic Blood Culture - Preliminary NO GROWTH AFTER 3 DAYS 02/01/18 12:38 Influenza Type A Antigen Screen - Final Nasopharyngeal Swab NEGATIVE INFLUENZA A VIRUS AG Influenza Type B Antigen Screen - Final NEGATIVE INFLUENZA B VIRUS AG Med Orders - Current: Current Medications Acetaminophen (Tylenol Extra Strength) 1,000 mg PO TID [facility] Last Admin: 02/01/18 20:24 Dose: 1,000 mg Al Hydroxide/Mg Hydroxide (Mag-Al Plus) 30 ml PO Q4H PRN PRN Reason: Constipation Aspirin (Halfprin) 81 mg PO DAILY [facility] Last Admin: 02/01/18 08:11 Dose: 81 mg Azithromycin (Zithromax) 500 mg PO DAILY [facility] Last Admin: 02/01/18 08:11 Dose: 500 mg Bisacodyl (Dulcolax) 10 mg PO DAILY PRN PRN Reason: Constipation Carvedilol (Coreg) 3.125 mg PO WITHDINNER [facility] Last Admin: 02/01/18 18:37 Dose: 3.125 mg Clopidogrel Bisulfate (Plavix) 75 mg PO DAILY [facility] Last Admin: 02/01/18 08:11 Dose: 75 mg Docusate Sodium (Colace) 100 mg PO BID PRN PRN Reason: Constipation Finasteride (Proscar) 5 mg PO DAILY [facility] Last Admin: 02/01/18 08:11 Dose: 5 mg Hydrochlorothiazide (Hydrochlorothiazide) 25 mg PO DAILY [facility] Last Admin: 02/01/18 08:12 Dose: 25 mg Ceftriaxone Sodium 2 gm/ (Sodium Chloride) 50 mls @ 100 mls/hr IV Q24H [facility] Last Admin: 02/01/18 11:56 Dose: 100 mls/hr Vancomycin HCl 1.5 gm/ Sodium (Chloride) 250 mls @ 150 mls/hr IV Q12H [facility] Last Admin: 02/02/18 02:43 Dose: 150 mls/hr Ketorolac Tromethamine (Toradol) 30 mg IVPUSH Q6H PRN PRN Reason: Pain/Fever Stop: 02/03/18 13:22 Last Admin: 02/02/18 02:55 Dose: 30 mg Levalbuterol HCl (Xopenex) 0.63 mg NEB Q6H PRN PRN Reason: Shortness of Breath Last Admin: 02/02/18 03:00 Dose: 0.63 mg Lisinopril (Prinivil) 30 mg PO DAILY [facility] Last Admin: 02/01/18 08:12 Dose: 30 mg Magnesium Hydroxide (Milk Of Magnesia) 30 ml PO BID PRN PRN Reason: Constipation Melatonin (Melatonin) 3 mg PO BEDTIME PRN PRN Reason: Insomnia Last Admin: 01/31/18 21:44 Dose: 3 mg Morphine Sulfate (Morphine) 2 mg IVPUSH Q2H PRN PRN Reason: Pain Nitroglycerin (Nitrostat) 0.4 mg SL ASDIRECTED PRN PRN Reason: CHEST PAIN Ondansetron HCl (Zofran) 8 mg IVPUSH Q4H PRN PRN Reason: Nausea/Vomiting Oxycodone HCl (Oxycodone) 5 - 10 mg PO Q4H PRN PRN Reason: Pain Last Admin: 02/01/18 07:15 Dose: 10 mg Pantoprazole Sodium (Protonix) 40 mg PO BEDTIME [facility] Last Admin: 02/01/18 20:24 Dose: 40 mg Alfuzosin Er 10mg ( (Ptom)) 0 each PO BEDTIME [facility] Last Admin: 02/01/18 20:24 Dose: 1 each Folic Acid 400mcg ( (Ptom)) 0 each PO DAILY [facility] Last Admin: 02/01/18 08:11 Dose: 1 each Rosuvastatin Calcium (Crestor) 15 mg PO BEDTIME [facility] Last Admin: 02/01/18 20:24 Dose: 15 mg Senna (Senna) 8.6 mg PO BID PRN PRN Reason: Constipation Sodium Chloride (Saline Flush) 10 ml FLUSH DAILY [facility] Last Admin: 02/01/18 08:12 Dose: 10 ml Tramadol HCl (Ultram) 100 mg PO Q6H PRN PRN Reason: Pain Last Admin: 01/31/18 00:22 Dose: 100 mg Valacyclovir HCl (Valtrex) 500 mg PO BID [facility] Last Admin: 02/01/18 20:23 Dose: Not Given Zolpidem Tartrate (Ambien) 5 mg PO BEDTIME PRN PRN Reason: Sleep Last Admin: 02/01/18 20:24 Dose: 5 mg Discontinued Medications Acetaminophen (Tylenol Extra Strength) 1,000 mg PO ONETIME ONE Stop: 01/27/18 07:41 Last Admin: 01/27/18 08:36 Dose: 1,000 mg Acetaminophen (Tylenol) 325 mg PO Q4H PRN PRN Reason: Fever Last Admin: 01/31/18 07:37 Dose: 325 mg Albuterol/Ipratropium (Duoneb 3.0-0.5 Mg/3 Ml) 3 ml NEB ONETIME ONE Stop: 01/27/18 10:01 Last Admin: 01/27/18 09:28 Dose: 3 ml Aspirin (Aspirin) 81 mg PO DAILY [facility] Last Admin: 01/28/18 08:27 Dose: 81 mg Aspirin (Halfprin) 81 mg PO DAILY [facility] Last Admin: 01/30/18 10:46 Dose: 81 mg Carvedilol (Coreg) 3.125 mg PO WITHDINNER [facility] Last Admin: 01/29/18 17:02 Dose: 3.125 mg Clopidogrel Bisulfate (Plavix) 75 mg PO DAILY [facility] Last Admin: 01/30/18 10:55 Dose: 75 mg Ropivacaine 49.25 ml/Ketorolac Tromethamine 30 mg/Epinephrine HCl 0.5 mg/ Clonidine HCl 80 mcg/ Sodium Chloride 48.45 ml 0 ml INJECT ONETIME ONE Stop: 01/27/18 09:46 Last Admin: 01/27/18 12:27 Dose: 100 ml Tranexamic Acid 3,000 mg/ (Sodium Chloride 100 ml) 0 mg TOP ASDIRECTED [facility] Stop: 01/27/18 09:46 Last Admin: 01/27/18 12:26 Dose: 3,000 bag Diphenhydramine HCl (Benadryl) 25 mg IVPUSH Q4H PRN PRN Reason: Itching Ephedrine Sulfate (Ephedrine Sulfate) Confirm Administered Dose 50 mg .ROUTE .[facility] ONE Stop: 01/27/18 11:58 Fentanyl (Sublimaze) Confirm Administered Dose 100 mcg .ROUTE .[facility] Stop: 01/27/18 07:30 Finasteride (Proscar) 5 mg PO DAILY [facility] Last Admin: 01/28/18 08:29 Dose: 5 mg Finasteride (Proscar) 5 mg PO DAILY [facility] Last Admin: 01/30/18 10:51 Dose: 5 mg Folic Acid (Folic Acid) 0.5 mg PO DAILY [facility] Last Admin: 01/28/18 08:28 Dose: 0.5 mg Furosemide (Lasix) 20 mg IVPUSH ONETIME ONE Stop: 02/01/18 16:01 Last Admin: 02/01/18 16:09 Dose: 20 mg Gabapentin (Neurontin) 300 mg PO ONETIME ONE Stop: 01/27/18 07:41 Last Admin: 01/27/18 08:36 Dose: 300 mg Gentamicin Sulfate (Gentamicin) Confirm Administered Dose 240 mg .ROUTE .[facility] ONE Stop: 01/27/18 09:55 Hydrochlorothiazide (Hydrochlorothiazide) 25 mg PO DAILY [facility] Last Admin: 01/30/18 10:46 Dose: 25 mg Lactated Ringer's (Ringers, Lactated) 1,000 mls @ 0 mls/hr IV ASDIRECTED [facility] Last Admin: 01/27/18 08:37 Dose: 100 mls/hr Vancomycin HCl 1 gm/ Sodium (Chloride) 250 mls @ 150 mls/hr IV ONETIME ONE Stop: 01/27/18 09:39 Last Admin: 01/27/18 09:25 Dose: 150 mls/hr Lactated Ringer's (Ringers, Lactated) Confirm Administered Dose 1,000 mls @ as directed .ROUTE .[facility] ONE Stop: 01/27/18 12:44 Lactated Ringer's (Ringers, Lactated) 1,000 mls @ 100 mls/hr IV ASDIRECTED [facility] Last Admin: 01/28/18 23:11 Dose: 100 mls/hr Vancomycin HCl 1.5 gm/ Sodium (Chloride) 250 mls @ 167 mls/hr IV ONETIME ONE Stop: 01/27/18 23:29 Last Admin: 01/27/18 21:43 Dose: 167 mls/hr Lactated Ringer's (Ringers, Lactated) 500 mls @ 500 mls/hr IV [facility] [place] Stop: 01/28/18 03:44 Last Admin: 01/28/18 02:40 Dose: 500 mls/hr Sodium Chloride (Normal Saline) 500 mls @ 500 mls/hr IV .BOLUS ONE Stop: 01/28/18 11:29 Last Admin: 01/28/18 11:20 Dose: 500 mls/hr Sodium Chloride (Normal Saline) 500 mls @ 500 mls/hr IV .BOLUS ONE Stop: 01/28/18 15:14 Last Admin: 01/28/18 15:24 Dose: 500 mls/hr Ketamine HCl (Ketalar) 36 mg IV ASDIRECTED [facility] Ketorolac Tromethamine (Toradol) 30 mg IVPUSH Q8H PRN PRN Reason: Pain Stop: 01/30/18 12:55 Last Admin: 01/28/18 23:02 Dose: 30 mg Lisinopril 10 mg/ Lisinopril (20 mg) 30 mg PO DAILY [facility] Last Admin: 01/28/18 11:47 Dose: Not Given Midazolam HCl (Versed 1 Mg/Ml) Confirm Administered Dose 2 mg .ROUTE .[facility] ONE Stop: 01/27/18 07:30 Naloxone HCl (Narcan) 0.1 mg IVPUSH ASDIRECTED PRN PRN Reason: Oversedation Stop: 01/28/18 12:55 Oxycodone/Acetaminophen (Percocet 325-5 Mg) 2 tab PO Q4H PRN PRN Reason: Pain Last Admin: 01/29/18 06:16 Dose: 1 tab Oxycodone/Acetaminophen (Percocet 325-5 Mg) 1 - 2 tab PO Q4H PRN PRN Reason: Pain Last Admin: 01/31/18 07:37 Dose: 1 tab Alfuzosin Er 10mg ( (Ptom)) 0 each PO DAILY [facility] Lisinopril 30mg ( (Ptom)) 0 each PO DAILY [facility] Last Admin: 01/30/18 10:55 Dose: 1 each Povidone Iodine (Betadine 10% Soln) Confirm Administered Dose 1 ml .ROUTE .[facility]- MED ONE Stop: 01/27/18 09:55 Last Admin: 01/27/18 12:50 Dose: 10 ml Propofol (Diprivan 20 Ml) Confirm Administered Dose 200 mg .ROUTE .[facility] ONE Stop: 01/27/18 07:30 Propofol (Diprivan 20 Ml) Confirm Administered Dose 200 mg .ROUTE .[facility] ONE Stop: 01/27/18 11:47 Propofol (Diprivan 20 Ml) Confirm Administered Dose 200 mg .ROUTE .[facility]-MED ONE Stop: 01/27/18 12:20 Rosuvastatin Calcium (Crestor) 15 mg PO BEDTIME [facility] Last Admin: 01/29/18 20:04 Dose: 15 mg Scopolamine (Transderm-Scop) 1.5 mg TOP Q72H [facility] Last Admin: 01/27/18 08:36 Dose: 1.5 mg Vancomycin HCl (Vancomycin) 1 gm IV .PHARMACY TO DOSE [facility]EDEE Stop: 01/27/18 16:00 - Exam General: Alert, Oriented HEENT: Pupils Equal, EOMI, Mucous Membr. Moist/[place] Neck: Supple, Trachea Midline Lungs: Normal Respiratory Effort Extremities: Pedal Edema, Joint Swelling, Leg Pain Skin: Warm, Dry, Intact Wound/Incisions: Healing Well, Dressing Dry and Intact, No Drainage Neurological: No New Focal Deficit Psy/Mental Status: Alert, Normal Affect, Normal Mood - Problem List & Annotations (1) Status post total right knee replacement SNOMED Code(s): 5357807769000 Code(s): Z96.651 - PRESENCE OF RIGHT ARTIFICIAL KNEE JOINT Status: Acute Current Visit: Yes (2) Primary osteoarthritis of right knee SNOMED Code(s): 986140721160904, 902044533877487 Code(s): M17.11 - UNILATERAL PRIMARY OSTEOARTHRITIS, RIGHT KNEE Status: Chronic Current Visit: No - Problem List Review Problem List Initiated/Reviewed/Updated: Yes - My Orders Last 24 Hours: My Active Orders 02/01/18 13:00 Oral Care [OM.PC] BID 02/02/18 13:00 Oral Care [OM.PC] BID 02/03/18 13:00 Oral Care [OM.PC] BID 02/04/18 13:00 Oral Care [OM.PC] BID 02/05/18 13:00 Oral Care [OM.PC] BID - Plan Plan:: Assessment: Status post right total knee arthroplasty with fevers of unknown origin. Plan: Continue with physical therapy occupational therapy as well as pain control. We'll continue with vancomycin IV per hospitalist service. Treating empirically as possible influenza. We'll continue to monitor.
[2018-02-02] MEDS: Lisinopril 10 MG Tab PO SCH (08:53)
[2018-02-02] MEDS: Hydrochlorothiazide 25 MG Tab PO SCH (08:53)
[2018-02-02] MEDS: Aspirin 81 MG Tab.EC PO SCH (08:53)
[2018-02-02] MEDS: Clopidogrel 75 MG Tab PO SCH (08:53)
[2018-02-02] MEDS: FOLIC ACID 400 MCG PO SCH (08:54)
[2018-02-02] MEDS: Finasteride 5 MG Tab PO SCH (08:54)
[2018-02-02] MEDS: Acetaminophen 500 MG Tab PO SCH ×3 (08:54→21:14)
[2018-02-02] MEDS: Sodium Chloride 0.9% 10 ML Syringe FLUSH SCH (08:54)
[2018-02-02] MEDS: valACYclovir 1,000 MG Tab PO SCH ×2 (08:55→20:55)
[2018-02-02] MEDS: Azithromycin 250 MG Tab PO SCH (08:56)
[2018-02-02] MEDS ORDERED: Potassium Chloride 20 MEQ Tab.ER PO ONE ×2 (09:30→17:00)
[2018-02-02] MEDS ORDERED: Furosemide 20 MG/2 ML VIAL IV ONE (09:30)
[2018-02-02] MEDS: cefTRIAXone 2 GM in Sodium Chloride 0.9% 50 ML IV SCH (10:32)
--- NOTE | 2018-02-02 13:49 | PCM.PN ---
- General Info Date of Service: 02/02/18 Subjective Update: Patient has felt improved over the past 24 hours, he did have temperature elevation this morning but not as high as he is had over the past few days, it does appear that we've her curve is slowly decreasing. White blood cell count remains normal and again I suspect that the underlying infection is viral in nature. He's diuresied nicely over the past few days with IV furosemide. Functional Status: Reports: Tolerating Diet, Ambulating, Urinating - Review of Systems General: Reports: Fever. Denies: Weakness, Chills Pulmonary: Reports: Cough, Wheezing. Denies: Shortness of Breath Cardiovascular: Reports: Edema. Denies: Chest Pain, Palpitations, Dyspnea on Exertion, Orthopnea, PND, Lightheadedness Gastrointestinal: Reports: No Symptoms Musculoskeletal: Reports: Joint Pain - Patient Data Vitals - Most Recent: Last Vital Signs Temp 99.8 F 02/02/18 11:14 Pulse 75 02/02/18 11:14 Resp 18 02/02/18 11:14 BP 159/76 H 02/02/18 11:14 Pulse Ox 91 L 02/02/18 11:14 Weight - Most Recent: 266 lb I&O - Last 24 Hours: Intake & Output 02/01/18 02/02/18 02/02/18 22:59 06:59 14:59 Intake Total 1320 200 360 Output Total 2950 925 3600 Balance -1630 -725 -3240 Lab Results Last 24 Hours: Laboratory Results - last 24 hr 02/02/18 02/02/18 Range/Units 05:00 05:00 WBC 7.7 (4.5-11.0) K/uL RBC 3.19 L (4.30-5.90) M/uL Hgb 9.6 L (12.0-15.0) g/dL Hct 28.5 L (40.0-54.0) % MCV 89 (80-98) fL MCH 30 (27-31) pg MCHC 34 (32-36) % Plt Count 182 (150-400) K/uL Neut % (Auto) 74 H (36-66) % Lymph % (Auto) 10 L (24-44) % Blair % (Auto) 12 H (2-6) % Eos % (Auto) 4 (2-4) % Baso % (Auto) 0 (0-1) % Sodium 138 L (140-148) mmol/L Potassium 3.2 L (3.6-5.2) mmol/L Chloride 100 (100-108) mmol/L Carbon Dioxide 26 (21-32) mmol/L Anion Gap 15.2 H (5.0-14.0) mmol/L BUN 9 (7-18) mg/dL Creatinine 0.8 (0.8-1.3) mg/dL Est Cr Clr Drug Dosing 85.12 mL/min Estimated GFR (MDRD) > 60 (>60) Glucose 134 H (74-106) mg/dL Calcium 8.2 L (8.5-10.1) mg/dL Total Bilirubin 1.4 H (0.2-1.0) mg/dL AST 38 H (15-37) U/L ALT 40 (12-78) U/L Alkaline Phosphatase 91 (46-116) U/L Total Protein 6.5 (6.4-8.2) g/dL Albumin 2.6 L (3.4-5.0) g/dL Globulin 3.9 H (2.3-3.5) g/dL Albumin/Globulin Ratio 0.7 L (1.2-2.2) Chetan Results Last 24 Hours: Microbiology 01/29/18 13:38 Aerobic Blood Culture - Preliminary Blood - Arm, Right NO GROWTH AFTER 4 DAYS Anaerobic Blood Culture - Preliminary NO GROWTH AFTER 4 DAYS 01/29/18 13:25 Aerobic Blood Culture - Preliminary Blood - Arm, Right NO GROWTH AFTER 4 DAYS Anaerobic Blood Culture - Preliminary NO GROWTH AFTER 4 DAYS 02/01/18 12:38 Influenza Type A Antigen Screen - Final Nasopharyngeal Swab NEGATIVE INFLUENZA A VIRUS AG Influenza Type B Antigen Screen - Final NEGATIVE INFLUENZA B VIRUS AG Med Orders - Current: Current Medications Acetaminophen (Tylenol Extra Strength) 1,000 mg PO TID [facility] Last Admin: 02/02/18 08:54 Dose: 1,000 mg Al Hydroxide/Mg Hydroxide (Mag-Al Plus) 30 ml PO Q4H PRN PRN Reason: Constipation Aspirin (Halfprin) 81 mg PO DAILY [facility] Last Admin: 02/02/18 08:53 Dose: 81 mg Bisacodyl (Dulcolax) 10 mg PO DAILY PRN PRN Reason: Constipation Carvedilol (Coreg) 3.125 mg PO UMESH [facility] Last Admin: 02/01/18 18:37 Dose: 3.125 mg Clopidogrel Bisulfate (Plavix) 75 mg PO DAILY [facility] Last Admin: 02/02/18 08:53 Dose: 75 mg Docusate Sodium (Colace) 100 mg PO BID PRN PRN Reason: Constipation Finasteride (Proscar) 5 mg PO DAILY [facility] Last Admin: 02/02/18 08:54 Dose: 5 mg Furosemide (Lasix) 20 mg IVPUSH NOW ONE Stop: 02/03/18 07:01 Hydrochlorothiazide (Hydrochlorothiazide) 25 mg PO DAILY [facility] Last Admin: 02/02/18 08:53 Dose: 25 mg Ketorolac Tromethamine (Toradol) 30 mg IVPUSH Q6H PRN PRN Reason: Pain/Fever Stop: 02/03/18 13:22 Last Admin: 02/02/18 02:55 Dose: 30 mg Levalbuterol HCl (Xopenex) 0.63 mg NEB Q6H PRN PRN Reason: Shortness of Breath Last Admin: 02/02/18 03:00 Dose: 0.63 mg Levofloxacin (Levaquin) 500 mg PO Q24H [facility] Lisinopril (Prinivil) 30 mg PO DAILY [facility] Last Admin: 02/02/18 08:53 Dose: 30 mg Magnesium Hydroxide (Milk Of Magnesia) 30 ml PO BID PRN PRN Reason: Constipation Melatonin (Melatonin) 3 mg PO BEDTIME PRN PRN Reason: Insomnia Last Admin: 01/31/18 21:44 Dose: 3 mg Morphine Sulfate (Morphine) 2 mg IVPUSH Q2H PRN PRN Reason: Pain Nitroglycerin (Nitrostat) 0.4 mg SL ASDIRECTED PRN PRN Reason: CHEST PAIN Ondansetron HCl (Zofran) 8 mg IVPUSH Q4H PRN PRN Reason: Nausea/Vomiting Oxycodone HCl (Oxycodone) 5 - 10 mg PO Q4H PRN PRN Reason: Pain Last Admin: 02/01/18 07:15 Dose: 10 mg Pantoprazole Sodium (Protonix) 40 mg PO BEDTIME [facility] Last Admin: 02/01/18 20:24 Dose: 40 mg Alfuzosin Er 10mg ( (Ptom)) 0 each PO BEDTIME [facility] Last Admin: 02/01/18 20:24 Dose: 1 each Folic Acid 400mcg ( (Ptom)) 0 each PO DAILY [facility] Last Admin: 02/02/18 08:54 Dose: 1 each Potassium Chloride (Klor-Con M20) 40 meq PO ONETIME ONE Stop: 02/02/18 17:01 Rosuvastatin Calcium (Crestor) 15 mg PO BEDTIME [facility] Last Admin: 02/01/18 20:24 Dose: 15 mg Senna (Senna) 8.6 mg PO BID PRN PRN Reason: Constipation Sodium Chloride (Saline Flush) 10 ml FLUSH DAILY [facility] Last Admin: 02/02/18 08:54 Dose: 10 ml Tramadol HCl (Ultram) 100 mg PO Q6H PRN PRN Reason: Pain Last Admin: 01/31/18 00:22 Dose: 100 mg Valacyclovir HCl (Valtrex) 500 mg PO BID [facility] Last Admin: 02/02/18 08:55 Dose: Not Given Zolpidem Tartrate (Ambien) 5 mg PO BEDTIME PRN PRN Reason: Sleep Last Admin: 02/01/18 20:24 Dose: 5 mg Discontinued Medications Acetaminophen (Tylenol Extra Strength) 1,000 mg PO ONETIME ONE Stop: 01/27/18 07:41 Last Admin: 01/27/18 08:36 Dose: 1,000 mg Acetaminophen (Tylenol) 325 mg PO Q4H PRN PRN Reason: Fever Last Admin: 01/31/18 07:37 Dose: 325 mg Albuterol/Ipratropium (Duoneb 3.0-0.5 Mg/3 Ml) 3 ml NEB ONETIME ONE Stop: 01/27/18 10:01 Last Admin: 01/27/18 09:28 Dose: 3 ml Aspirin (Aspirin) 81 mg PO DAILY [facility] Last Admin: 01/28/18 08:27 Dose: 81 mg Aspirin (Halfprin) 81 mg PO DAILY [facility] Last Admin: 01/30/18 10:46 Dose: 81 mg Azithromycin (Zithromax) 500 mg PO DAILY [facility] Last Admin: 02/02/18 08:56 Dose: 500 mg Carvedilol (Coreg) 3.125 mg PO WITHDINNER [facility] Last Admin: 01/29/18 17:02 Dose: 3.125 mg Clopidogrel Bisulfate (Plavix) 75 mg PO DAILY [facility] Last Admin: 01/30/18 10:55 Dose: 75 mg Ropivacaine 49.25 ml/Ketorolac Tromethamine 30 mg/Epinephrine HCl 0.5 mg/ Clonidine HCl 80 mcg/ Sodium Chloride 48.45 ml 0 ml INJECT ONETIME ONE Stop: 01/27/18 09:46 Last Admin: 01/27/18 12:27 Dose: 100 ml Tranexamic Acid 3,000 mg/ (Sodium Chloride 100 ml) 0 mg TOP ASDIRECTED [facility] Stop: 01/27/18 09:46 Last Admin: 01/27/18 12:26 Dose: 3,000 bag Diphenhydramine HCl (Benadryl) 25 mg IVPUSH Q4H PRN PRN Reason: Itching Ephedrine Sulfate (Ephedrine Sulfate) Confirm Administered Dose 50 mg .ROUTE .STK-MED ONE Stop: 01/27/18 11:58 Fentanyl (Sublimaze) Confirm Administered Dose 100 mcg .ROUTE .STK-MED ONE Stop: 01/27/18 07:30 Finasteride (Proscar) 5 mg PO DAILY [facility] Last Admin: 01/28/18 08:29 Dose: 5 mg Finasteride (Proscar) 5 mg PO DAILY [facility] Last Admin: 01/30/18 10:51 Dose: 5 mg Folic Acid (Folic Acid) 0.5 mg PO DAILY [facility] Last Admin: 01/28/18 08:28 Dose: 0.5 mg Furosemide (Lasix) 20 mg IVPUSH ONETIME ONE Stop: 02/01/18 16:01 Last Admin: 02/01/18 16:09 Dose: 20 mg Furosemide (Lasix) 20 mg IV ONETIME ONE Stop: 02/02/18 09:31 Last Admin: 02/02/18 09:58 Dose: 20 mg Gabapentin (Neurontin) 300 mg PO ONETIME ONE Stop: 01/27/18 07:41 Last Admin: 01/27/18 08:36 Dose: 300 mg Gentamicin Sulfate (Gentamicin) Confirm Administered Dose 240 mg .ROUTE .STK- MED ONE Stop: 01/27/18 09:55 Hydrochlorothiazide (Hydrochlorothiazide) 25 mg PO DAILY [facility] Last Admin: 01/30/18 10:46 Dose: 25 mg Lactated Ringer's (Ringers, Lactated) 1,000 mls @ 0 mls/hr IV ASDIRECTED [facility] Last Admin: 01/27/18 08:37 Dose: 100 mls/hr Vancomycin HCl 1 gm/ Sodium (Chloride) 250 mls @ 150 mls/hr IV ONETIME ONE Stop: 01/27/18 09:39 Last Admin: 01/27/18 09:25 Dose: 150 mls/hr Lactated Ringer's (Ringers, Lactated) Confirm Administered Dose 1,000 mls @ as directed .ROUTE .STK-MED ONE Stop: 01/27/18 12:44 Lactated Ringer's (Ringers, Lactated) 1,000 mls @ 100 mls/hr IV ASDIRECTED [facility] Last Admin: 01/28/18 23:11 Dose: 100 mls/hr Vancomycin HCl 1.5 gm/ Sodium (Chloride) 250 mls @ 167 mls/hr IV ONETIME ONE Stop: 01/27/18 23:29 Last Admin: 01/27/18 21:43 Dose: 167 mls/hr Lactated Ringer's (Ringers, Lactated) 500 mls @ 500 mls/hr IV [facility] [place] Stop: 01/28/18 03:44 Last Admin: 01/28/18 02:40 Dose: 500 mls/hr Sodium Chloride (Normal Saline) 500 mls @ 500 mls/hr IV .BOLUS ONE Stop: 01/28/18 11:29 Last Admin: 01/28/18 11:20 Dose: 500 mls/hr Sodium Chloride (Normal Saline) 500 mls @ 500 mls/hr IV .BOLUS ONE Stop: 01/28/18 15:14 Last Admin: 01/28/18 15:24 Dose: 500 mls/hr Ceftriaxone Sodium 2 gm/ (Sodium Chloride) 50 mls @ 100 mls/hr IV Q24H [facility] Last Admin: 02/02/18 10:32 Dose: 100 mls/hr Vancomycin HCl 1.5 gm/ Sodium (Chloride) 250 mls @ 150 mls/hr IV Q12H [facility] Last Admin: 02/02/18 02:43 Dose: 150 mls/hr Ketamine HCl (Ketalar) 36 mg IV ASDIRECTED [facility] Ketorolac Tromethamine (Toradol) 30 mg IVPUSH Q8H PRN PRN Reason: Pain Stop: 01/30/18 12:55 Last Admin: 01/28/18 23:02 Dose: 30 mg Lisinopril 10 mg/ Lisinopril (20 mg) 30 mg PO DAILY [facility] Last Admin: 01/28/18 11:47 Dose: Not Given Midazolam HCl (Versed 1 Mg/Ml) Confirm Administered Dose 2 mg .ROUTE .STK-MED ONE Stop: 01/27/18 07:30 Naloxone HCl (Narcan) 0.1 mg IVPUSH ASDIRECTED PRN PRN Reason: Oversedation Stop: 01/28/18 12:55 Oxycodone/Acetaminophen (Percocet 325-5 Mg) 2 tab PO Q4H PRN PRN Reason: Pain Last Admin: 01/29/18 06:16 Dose: 1 tab Oxycodone/Acetaminophen (Percocet 325-5 Mg) 1 - 2 tab PO Q4H PRN PRN Reason: Pain Last Admin: 01/31/18 07:37 Dose: 1 tab Alfuzosin Er 10mg ( (Ptom)) 0 each PO DAILY [facility] Lisinopril 30mg ( (Ptom)) 0 each PO DAILY [facility] Last Admin: 01/30/18 10:55 Dose: 1 each Potassium Chloride (Klor-Con M20) 40 meq PO ONETIME ONE Stop: 02/02/18 09:31 Last Admin: 02/02/18 09:58 Dose: 40 meq Povidone Iodine (Betadine 10% Soln) Confirm Administered Dose 1 ml .ROUTE .STK- MED ONE Stop: 01/27/18 09:55 Last Admin: 01/27/18 12:50 Dose: 10 ml Propofol (Diprivan 20 Ml) Confirm Administered Dose 200 mg .ROUTE .STK-MED ONE Stop: 01/27/18 07:30 Propofol (Diprivan 20 Ml) Confirm Administered Dose 200 mg .ROUTE .STK-MED ONE Stop: 01/27/18 11:47 Propofol (Diprivan 20 Ml) Confirm Administered Dose 200 mg .ROUTE .STK-MED ONE Stop: 01/27/18 12:20 Rosuvastatin Calcium (Crestor) 15 mg PO BEDTIME [facility] Last Admin: 01/29/18 20:04 Dose: 15 mg Scopolamine (Transderm-Scop) 1.5 mg TOP Q72H [facility] Last Admin: 01/27/18 08:36 Dose: 1.5 mg Vancomycin HCl (Vancomycin) 1 gm IV .PHARMACY TO DOSE [facility] Stop: 01/27/18 16:00 - Exam Quality Assessment: DVT Prophylaxis General: Alert, Oriented, Cooperative, No Acute Distress Lungs: Decreased Breath Sounds, Wheezing. No: Crackles, Rales, Rhonchi, Rub Cardiovascular: Regular Rate, Regular Rhythm, No Murmurs GI/Abdominal Exam: Soft, Non-Tender, No Organomegaly, No Distention Extremities: Non-Tender, Pedal Edema - Problem List Review Problem List Initiated/Reviewed/Updated: Yes - My Orders Last 24 Hours: My Active Orders 02/02/18 13:45 Levofloxacin [Levaquin] 500 mg PO Q24H 02/02/18 17:00 Potassium Chloride [Klor-Con M20] 40 meq PO ONETIME ONE 02/03/18 05:00 BASIC METABOLIC PANEL,BMP [CHEM] Timed 02/03/18 07:00 Furosemide [Lasix] 20 mg IVPUSH NOW ONE - Plan Plan:: ASSESSMENT AND PLAN Right knee osteoarthritis status post total right knee arthroplasty - minimal pain and doing well postoperatively. On evaluation over the past few days no obvious cellulitis or wound infection identified -Discontinue vancomycin -Postoperative cares per orthopedic team Peripheral edema-improved with diuretic therapy -Furosemide 20 mg IV in a.m. -BMP in a.m. Probable acute bronchitis - no impressive infiltrate on chest x-ray. Further improvement in cough and shortness of breath, white blood cell count remains normal. Probable underlying viral respiratory tract infection causing current fever. Current temperature again this morning but fever curve seems to be slowly decreasing, he is otherwise feeling well -Discontinue IV antibiotic therapy -Levofloxacin 500 mg by mouth daily -Supplement oxygen if needed -Nebulizers as needed -Optimize pulmonary toilet -Continue use of incentive spirometer Delirium - resolved -Minimize narcotic use while maintaining pain control Hematuria - no recurrence after [place] catheter was removed. -Monitor urine output Coronary artery disease - history of both bypass surgery and stenting. No active symptoms at this time. Blood pressure remains on the low side. -antihypertensives are still on hold at this time but blood pressures are improving Admission justification - patient will be transitioned to inpatient status at this time with fever and acute infection suspected.
[2018-02-02] MEDS: Levofloxacin 500 MG Tab PO SCH (14:58)
[2018-02-02] MEDS: Carvedilol 3.125 MG Tab PO SCH (16:45)
[2018-02-02] MEDS: Zolpidem 5 MG Tab PO PRN (21:11)
[2018-02-02] MEDS: oxyCODONE 5 MG Tab PO PRN (21:11)
[2018-02-02] MEDS: Rosuvastatin 10 MG Tab PO SCH (21:12)
[2018-02-02] MEDS: Pantoprazole 40 MG Tab.CR PO SCH (21:14)
[2018-02-02] MEDS: ALFUZOSIN 10 MG PO SCH (21:14)
[2018-02-03] MEDS ORDERED: Furosemide 20 MG/2 ML VIAL IV ONE (06:30)
[2018-02-03 07:18] VITALS: BP 152/88
[2018-02-03] MEDS: oxyCODONE 5 MG Tab PO PRN ×2 (07:22→11:53)
[2018-02-03] MEDS: FOLIC ACID 400 MCG PO SCH (07:59)
[2018-02-03] MEDS: Aspirin 81 MG Tab.EC PO SCH (07:59)
[2018-02-03] MEDS: Clopidogrel 75 MG Tab PO SCH (07:59)
[2018-02-03] MEDS: Hydrochlorothiazide 25 MG Tab PO SCH (07:59)
[2018-02-03] MEDS: Lisinopril 10 MG Tab PO SCH (07:59)
[2018-02-03] MEDS: Acetaminophen 500 MG Tab PO SCH (08:00)
[2018-02-03] MEDS: Finasteride 5 MG Tab PO SCH (08:00)
[2018-02-03] MEDS: Sodium Chloride 0.9% 10 ML Syringe FLUSH SCH (08:01)
[2018-02-03] MEDS: valACYclovir 1,000 MG Tab PO SCH (08:01)
--- NOTE | 2018-02-03 08:44 | PCM.PN ---
- General Info Date of Service: 02/03/18 Functional Status: Reports: Pain Controlled - Review of Systems General: Reports: No Symptoms HEENT: Reports: No Symptoms Pulmonary: Reports: No Symptoms Cardiovascular: Reports: No Symptoms Gastrointestinal: Reports: No Symptoms Genitourinary: Reports: No Symptoms Musculoskeletal: Reports: Leg Pain, Joint Pain, Joint Swelling Skin: Reports: No Symptoms Neurological: Reports: No Symptoms Psychiatric: Reports: No Symptoms - Patient Data Vitals - Most Recent: Last Vital Signs Temp 99.5 F 02/03/18 07:09 Pulse 80 02/03/18 07:09 Resp 16 02/03/18 07:09 BP 152/88 H 02/03/18 07:59 Pulse Ox 92 L 02/03/18 07:09 Weight - Most Recent: 266 lb I&O - Last 24 Hours: Intake & Output 02/02/18 02/03/18 02/03/18 22:59 06:59 14:59 Intake Total 640 300 Output Total 1975 250 Balance -1335 50 Lab Results Last 24 Hours: Laboratory Results - last 24 hr 02/03/18 Range/Units 05:48 Sodium 140 (140-148) mmol/L Potassium 3.7 (3.6-5.2) mmol/L Chloride 102 (100-108) mmol/L Carbon Dioxide 29 (21-32) mmol/L Anion Gap 9.2 (5.0-14.0) mmol/L BUN 10 (7-18) mg/dL Creatinine 0.9 (0.8-1.3) mg/dL Est Cr Clr Drug Dosing 75.66 mL/min Estimated GFR (MDRD) > 60 (>60) Glucose 120 H (74-106) mg/dL Calcium 8.4 L (8.5-10.1) mg/dL [place]tan Results Last 24 Hours: Microbiology 01/29/18 13:38 Aerobic Blood Culture - Preliminary Blood - Arm, Right NO GROWTH AFTER 4 DAYS Anaerobic Blood Culture - Preliminary NO GROWTH AFTER 4 DAYS 01/29/18 13:25 Aerobic Blood Culture - Preliminary Blood - Arm, Right NO GROWTH AFTER 4 DAYS Anaerobic Blood Culture - Preliminary NO GROWTH AFTER 4 DAYS Med Orders - Current: Current Medications Acetaminophen (Tylenol Extra Strength) 1,000 mg PO TID DEEDEE Last Admin: 02/03/18 08:00 Dose: 1,000 mg Al Hydroxide/Mg Hydroxide (Mag-Al Plus) 30 ml PO Q4H PRN PRN Reason: Constipation Aspirin (Halfprin) 81 mg PO DAILY [facility] Last Admin: 02/03/18 07:59 Dose: 81 mg Bisacodyl (Dulcolax) 10 mg PO DAILY PRN PRN Reason: Constipation Carvedilol (Coreg) 3.125 mg PO WITHDINNER [facility] Last Admin: 02/02/18 16:45 Dose: 3.125 mg Clopidogrel Bisulfate (Plavix) 75 mg PO DAILY [facility] Last Admin: 02/03/18 07:59 Dose: 75 mg Docusate Sodium (Colace) 100 mg PO BID PRN PRN Reason: Constipation Finasteride (Proscar) 5 mg PO DAILY [facility] Last Admin: 02/03/18 08:00 Dose: 5 mg Hydrochlorothiazide (Hydrochlorothiazide) 25 mg PO DAILY [facility] Last Admin: 02/03/18 07:59 Dose: 25 mg Ketorolac Tromethamine (Toradol) 30 mg IVPUSH Q6H PRN PRN Reason: Pain/Fever Stop: 02/03/18 13:22 Last Admin: 02/02/18 02:55 Dose: 30 mg Levalbuterol HCl (Xopenex) 0.63 mg NEB Q6H PRN PRN Reason: Shortness of Breath Last Admin: 02/02/18 03:00 Dose: 0.63 mg Levofloxacin (Levaquin) 500 mg PO Q24H [facility] Last Admin: 02/02/18 14:58 Dose: 500 mg Lisinopril (Prinivil) 30 mg PO DAILY [facility] Last Admin: 02/03/18 07:59 Dose: 30 mg Magnesium Hydroxide (Milk Of Magnesia) 30 ml PO BID PRN PRN Reason: Constipation Melatonin (Melatonin) 3 mg PO BEDTIME PRN PRN Reason: Insomnia Last Admin: 01/31/18 21:44 Dose: 3 mg Morphine Sulfate (Morphine) 2 mg IVPUSH Q2H PRN PRN Reason: Pain Nitroglycerin (Nitrostat) 0.4 mg SL ASDIRECTED PRN PRN Reason: CHEST PAIN Ondansetron HCl (Zofran) 8 mg IVPUSH Q4H PRN PRN Reason: Nausea/Vomiting Oxycodone HCl (Oxycodone) 5 - 10 mg PO Q4H PRN PRN Reason: Pain Last Admin: 02/03/18 07:22 Dose: 5 mg Pantoprazole Sodium (Protonix) 40 mg PO BEDTIME [facility] Last Admin: 02/02/18 21:14 Dose: 40 mg Alfuzosin Er 10mg ( (Ptom)) 0 each PO BEDTIME [facility] Last Admin: 02/02/18 21:14 Dose: 1 each Folic Acid 400mcg ( (Ptom)) 0 each PO DAILY [facility] Last Admin: 02/03/18 07:59 Dose: 1 each Rosuvastatin Calcium (Crestor) 15 mg PO BEDTIME [facility] Last Admin: 02/02/18 21:12 Dose: 15 mg Senna (Senna) 8.6 mg PO BID PRN PRN Reason: Constipation Sodium Chloride (Saline Flush) 10 ml FLUSH DAILY [facility] Last Admin: 02/03/18 08:01 Dose: 10 ml Tramadol HCl (Ultram) 100 mg PO Q6H PRN PRN Reason: Pain Last Admin: 01/31/18 00:22 Dose: 100 mg Valacyclovir HCl (Valtrex) 500 mg PO BID [facility] Last Admin: 02/03/18 08:01 Dose: 500 mg Zolpidem Tartrate (Ambien) 5 mg PO BEDTIME PRN PRN Reason: Sleep Last Admin: 02/02/18 21:11 Dose: 5 mg Discontinued Medications Acetaminophen (Tylenol Extra Strength) 1,000 mg PO ONETIME ONE Stop: 01/27/18 07:41 Last Admin: 01/27/18 08:36 Dose: 1,000 mg Acetaminophen (Tylenol) 325 mg PO Q4H PRN PRN Reason: Fever Last Admin: 01/31/18 07:37 Dose: 325 mg Albuterol/Ipratropium (Duoneb 3.0-0.5 Mg/3 Ml) 3 ml NEB ONETIME ONE Stop: 01/27/18 10:01 Last Admin: 01/27/18 09:28 Dose: 3 ml Aspirin (Aspirin) 81 mg PO DAILY [facility] Last Admin: 01/28/18 08:27 Dose: 81 mg Aspirin (Halfprin) 81 mg PO DAILY [facility] Last Admin: 01/30/18 10:46 Dose: 81 mg Azithromycin (Zithromax) 500 mg PO DAILY [facility] Last Admin: 02/02/18 08:56 Dose: 500 mg Carvedilol (Coreg) 3.125 mg PO WITHDINNER [facility] Last Admin: 01/29/18 17:02 Dose: 3.125 mg Clopidogrel Bisulfate (Plavix) 75 mg PO DAILY [facility] Last Admin: 01/30/18 10:55 Dose: 75 mg Ropivacaine 49.25 ml/Ketorolac Tromethamine 30 mg/Epinephrine HCl 0.5 mg/ Clonidine HCl 80 mcg/ Sodium Chloride 48.45 ml 0 ml INJECT ONETIME ONE Stop: 01/27/18 09:46 Last Admin: 01/27/18 12:27 Dose: 100 ml Tranexamic Acid 3,000 mg/ (Sodium Chloride 100 ml) 0 mg TOP ASDIRECTED [facility] Stop: 01/27/18 09:46 Last Admin: 01/27/18 12:26 Dose: 3,000 bag Diphenhydramine HCl (Benadryl) 25 mg IVPUSH Q4H PRN PRN Reason: Itching Ephedrine Sulfate (Ephedrine Sulfate) Confirm Administered Dose 50 mg .ROUTE .STK-MED ONE Stop: 01/27/18 11:58 Fentanyl (Sublimaze) Confirm Administered Dose 100 mcg .ROUTE .STK-MED ONE Stop: 01/27/18 07:30 Finasteride (Proscar) 5 mg PO DAILY [facility] Last Admin: 01/28/18 08:29 Dose: 5 mg Finasteride (Proscar) 5 mg PO DAILY [facility] Last Admin: 01/30/18 10:51 Dose: 5 mg Folic Acid (Folic Acid) 0.5 mg PO DAILY [facility] Last Admin: 01/28/18 08:28 Dose: 0.5 mg Furosemide (Lasix) 20 mg IVPUSH ONETIME ONE Stop: 02/01/18 16:01 Last Admin: 02/01/18 16:09 Dose: 20 mg Furosemide (Lasix) 20 mg IV ONETIME ONE Stop: 02/02/18 09:31 Last Admin: 02/02/18 09:58 Dose: 20 mg Furosemide (Lasix) 20 mg IV ONETIME ONE Stop: 02/03/18 06:31 Last Admin: 02/03/18 07:22 Dose: 20 mg Gabapentin (Neurontin) 300 mg PO ONETIME ONE Stop: 01/27/18 07:41 Last Admin: 01/27/18 08:36 Dose: 300 mg Gentamicin Sulfate (Gentamicin) Confirm Administered Dose 240 mg .ROUTE .STK- MED ONE Stop: 01/27/18 09:55 Hydrochlorothiazide (Hydrochlorothiazide) 25 mg PO DAILY [facility] Last Admin: 01/30/18 10:46 Dose: 25 mg Lactated Ringer's (Ringers, Lactated) 1,000 mls @ 0 mls/hr IV ASDIRECTED [facility] Last Admin: 01/27/18 08:37 Dose: 100 mls/hr Vancomycin HCl 1 gm/ Sodium (Chloride) 250 mls @ 150 mls/hr IV ONETIME ONE Stop: 01/27/18 09:39 Last Admin: 01/27/18 09:25 Dose: 150 mls/hr Lactated Ringer's (Ringers, Lactated) Confirm Administered Dose 1,000 mls @ as directed .ROUTE .[facility] ONE Stop: 01/27/18 12:44 Lactated Ringer's (Ringers, Lactated) 1,000 mls @ 100 mls/hr IV ASDIRECTED [facility] Last Admin: 01/28/18 23:11 Dose: 100 mls/hr Vancomycin HCl 1.5 gm/ Sodium (Chloride) 250 mls @ 167 mls/hr IV ONETIME ONE Stop: 01/27/18 23:29 Last Admin: 01/27/18 21:43 Dose: 167 mls/hr Lactated Ringer's (Ringers, Lactated) 500 mls @ 500 mls/hr IV BOLUS [facility] Stop: 01/28/18 03:44 Last Admin: 01/28/18 02:40 Dose: 500 mls/hr Sodium Chloride (Normal Saline) 500 mls @ 500 mls/hr IV .BOLUS ONE Stop: 01/28/18 11:29 Last Admin: 01/28/18 11:20 Dose: 500 mls/hr Sodium Chloride (Normal Saline) 500 mls @ 500 mls/hr IV .BOLUS ONE Stop: 01/28/18 15:14 Last Admin: 01/28/18 15:24 Dose: 500 mls/hr Ceftriaxone Sodium 2 gm/ (Sodium Chloride) 50 mls @ 100 mls/hr IV Q24H [facility] Last Admin: 02/02/18 10:32 Dose: 100 mls/hr Vancomycin HCl 1.5 gm/ Sodium (Chloride) 250 mls @ 150 mls/hr IV Q12H [facility] Last Admin: 02/02/18 02:43 Dose: 150 mls/hr Ketamine HCl (Ketalar) 36 mg IV ASDIRECTED [facility] Ketorolac Tromethamine (Toradol) 30 mg IVPUSH Q8H PRN PRN Reason: Pain Stop: 01/30/18 12:55 Last Admin: 01/28/18 23:02 Dose: 30 mg Lisinopril 10 mg/ Lisinopril (20 mg) 30 mg PO DAILY [facility] Last Admin: 01/28/18 11:47 Dose: Not Given Midazolam HCl (Versed 1 Mg/Ml) Confirm Administered Dose 2 mg .ROUTE .STK-MED ONE Stop: 01/27/18 07:30 Naloxone HCl (Narcan) 0.1 mg IVPUSH ASDIRECTED PRN PRN Reason: Oversedation Stop: 01/28/18 12:55 Oxycodone/Acetaminophen (Percocet 325-5 Mg) 2 tab PO Q4H PRN PRN Reason: Pain Last Admin: 01/29/18 06:16 Dose: 1 tab Oxycodone/Acetaminophen (Percocet 325-5 Mg) 1 - 2 tab PO Q4H PRN PRN Reason: Pain Last Admin: 01/31/18 07:37 Dose: 1 tab Alfuzosin Er 10mg ( (Ptom)) 0 each PO DAILY [facility] Lisinopril 30mg ( (Ptom)) 0 each PO DAILY [facility] Last Admin: 01/30/18 10:55 Dose: 1 each Potassium Chloride (Klor-Con M20) 40 meq PO ONETIME ONE Stop: 02/02/18 09:31 Last Admin: 02/02/18 09:58 Dose: 40 meq Potassium Chloride (Klor-Con M20) 40 meq PO ONETIME ONE Stop: 02/02/18 17:01 Last Admin: 02/02/18 16:45 Dose: 40 meq Povidone Iodine (Betadine 10% Soln) Confirm Administered Dose 1 ml .ROUTE .STK- MED ONE Stop: 01/27/18 09:55 Last Admin: 01/27/18 12:50 Dose: 10 ml Propofol (Diprivan 20 Ml) Confirm Administered Dose 200 mg .ROUTE .STK-MED ONE Stop: 01/27/18 07:30 Propofol (Diprivan 20 Ml) Confirm Administered Dose 200 mg .ROUTE .STK-MED ONE Stop: 01/27/18 11:47 Propofol (Diprivan 20 Ml) Confirm Administered Dose 200 mg .ROUTE .STK-MED ONE Stop: 01/27/18 12:20 Rosuvastatin Calcium (Crestor) 15 mg PO BEDTIME [facility] Last Admin: 01/29/18 20:04 Dose: 15 mg Scopolamine (Transderm-Scop) 1.5 mg TOP Q72H [facility] Last Admin: 01/27/18 08:36 Dose: 1.5 mg Vancomycin HCl (Vancomycin) 1 gm IV .PHARMACY TO DOSE DEEDEE Stop: 01/27/18 16:00 - Exam General: Alert, Oriented HEENT: Pupils Equal, Mucous Membr. Moist/[place] Neck: Supple, Trachea Midline Lungs: Normal Respiratory Effort Extremities: Pedal Edema, Leg Pain, Limited Range of Motion Skin: Warm, Dry, Intact Wound/Incisions: Healing Well, No Drainage Neurological: No New Focal Deficit Psy/Mental Status: Alert, Normal Affect, Normal Mood - Problem List & Annotations (1) Status post total right knee replacement SNOMED Code(s): 2475307557262 Code(s): Z96.651 - PRESENCE OF RIGHT ARTIFICIAL KNEE JOINT Status: Acute Current Visit: Yes (2) Primary osteoarthritis of right knee SNOMED Code(s): 838451841051417, 096259336485297 Code(s): M17.11 - UNILATERAL PRIMARY OSTEOARTHRITIS, RIGHT KNEE Status: Chronic Current Visit: No - Problem List Review Problem List Initiated/Reviewed/Updated: Yes - My Orders Last 24 Hours: My Active Orders 02/02/18 13:00 Oral Care [OM.PC] BID 02/03/18 13:00 Oral Care [OM.PC] BID 02/04/18 13:00 Oral Care [OM.PC] BID 02/05/18 13:00 Oral Care [OM.PC] BID - Plan Plan:: assessment: Status post right total knee arthroplasty Plan: The patient diuresed approximately 5 L of fluid after Lasix administration yesterday. He's feeling much better. He now has full extension but only 80 of flexion. I am should be in this to the increased swelling in the lower extremity. He's been afebrile overnight. We will wait for assessment by Dr. Doss. Possible discharge today.
--- NOTE | 2018-02-03 10:26 | PCM.DCSUM1 ---
Discharge Summary - Hospital Course Brief History: This patient is a 72-year-old gentleman who was admitted on 27 January for a total right knee arthroplasty which was performed by Dr. Garcia Cervantes - Discharge Data Discharge Date: 02/03/18 Discharge Disposition: Home, Self-Care 01 Condition: Fair - Discharge Diagnosis/Problem(s) (1) Bronchitis SNOMED Code(s): 01638599 ICD Code: J40 - BRONCHITIS, NOT SPECIFIED ACUTE OR CHRONIC Status: Acute Current Visit: Yes (2) Status post total right knee replacement SNOMED Code(s): 3140659754584 ICD Code: Z96.651 - PRESENCE OF RIGHT ARTIFICIAL KNEE JOINT Status: Acute Current Visit: Yes (3) Essential hypertension SNOMED Code(s): 16114430 ICD Code: I10 - ESSENTIAL (PRIMARY) HYPERTENSION Status: Chronic Current Visit: No - Patient Summary/Data Operative Procedure(s) Performed: R TKA Consults: Consultations 01/27/18 12:55 OT Evaluation and Treatment [CONS] Routine Please Evaluate and Treat. OT Reason for Consult: Strengthening This query below is only for informational purposes and is not editable. PT Evaluation and Treatment [CONS] Routine Please Evaluate and Treat. PT Reason for Consult: Strengthening This query below is only for informational purposes and is not editable. Respiratory Care Assess and Treatment [CONS] Routine Comment: Physician Instructions: Post-op Pneumonia Prevention Hospital Course: Mr. Alfaro is a 72-year-old gentleman who was admitted on January 27 and underwent a total right knee arthroplasty performed by Dr. Garcia Cervantes. Initially did well during the postoperative period, with only mild complication of gross hematuria after his [place] catheter was removed. This resolved and the plan had been for relatively early discharge. Unfortunately he developed a temperature elevation and symptoms consistent with upper respiratory tract infection. Fever and infection was complicated by delirium. Cultures were obtained and he was started on IV antibiotic therapy as well as IV fluids for ongoing hydration. White blood cell count remained normal throughout this period of time and it was felt likely that the underlying infection was viral in nature. There was question of possible cellulitis around the knee but on further evaluation he was not felt to have infection in the incision or in the skin surrounding the incision. Fever gradually came down and he was feeling better with improvement in respiratory symptoms. Cultures remain negative up until the time of discharge. He did have significant swelling in the leg and did receive IV diuresis with furosemide prior to discharge with good result in significant improvement in edema. He will be discharged home on oral antibiotic therapy with levofloxacin for an additional 3 days. Follow-up appointments already been arranged with Dr. Garcia Cervantes as well as physical therapy. Activity will be as instructed per Dr. Cervantes and he will resume his usual diet. - Patient Instructions Diet: Usual Diet as Tolerated Activity: Apply Ice, Full Weight Bearing, No Strenuous Activities Driving: Do Not Drive Showering/Bathing: May Shower Wound/Incision Care: Keep Operative Site/Wound Site Clean and Dry, Change Dressing Daily Notify Provider of: Fever, Increased Pain, Swelling and Redness, Drainage, Nausea and/or Vomiting - Discharge Plan Prescriptions/Med Rec: Acetaminophen/oxyCODONE [Percocet 325-5 MG] 1 tab PO Q6HR #90 tablet Levofloxacin [Levaquin] 500 mg PO Q24H #3 tablet Home Medications: Home Meds Hydrochlorothiazide 25 mg PO DAILY 03/25/14 [History] Lisinopril [Prinivil] 30 mg PO DAILY 03/25/14 [History] Rosuvastatin Calcium [Crestor] 15 mg PO BEDTIME 03/25/14 [History] Aspirin [[place] Aspirin] 81 mg PO DAILY 08/19/14 [History] Nitroglycerin [Nitrostat] 0.4 mg SL ASDIRECTED 08/19/14 [History] [place] 900 mg PO BID 08/19/14 [History] Tadalafil [Cialis] 20 mg PO ASDIRECTED PRN 08/19/14 [History] Alfuzosin [Uroxatral] 10 mg PO DAILY 02/26/15 [History] Fluticasone Propionate [Flonase Allergy Relief] 2 sprays NS DAILY 02/26/15 [ History] Folic Acid 0.4 mg PO DAILY 02/26/15 [History] Levalbuterol HCl [Xopenex] 0.63 mg NEB Q6HRRT PRN 02/26/15 [History] Finasteride [Proscar] 5 mg PO DAILY 11/30/15 [History] valACYclovir [Valtrex] 500 mg PO BID 12/03/15 [History] Carvedilol [Coreg] 3.125 mg PO WITHDINNER 03/19/17 [History] Clopidogrel [Plavix] 75 mg PO DAILY 03/19/17 [History] Glucosamine/D3/[place]ia Lili [Glucosamine Complex Tablet] 1 each PO DAILY [History] Pantoprazole Sodium [Protonix] 40 mg PO DAILY 03/19/17 [History] [place]-3/DHA/Epa/Fish Oil [Fish Oil 1,000 mg Softgel] 1 cap PO DAILY 01/11/18 [ History] Flaxseed Oil [Flaxseed] 1,000 mg PO 01/27/18 [History] Acetaminophen/oxyCODONE [Percocet 325-5 MG] 1 tab PO Q6HR #90 tablet 01/28/18 [ Rx] Levofloxacin [Levaquin] 500 mg PO Q24H #3 tablet 02/03/18 [Rx] Patient Handouts: Total Knee Replacement, Care After, [id number] Referrals: Silke Sparks, PT [Physical Therapist] - 02/01/18 8:00 am Uziel Cervantes DO [Physician] - 02/18/18 10:30 am - Discharge Summary/Plan Comment DC Time >30 min.: No - Patient Data Vitals - Most Recent: Last Vital Signs Temp 99.5 F 02/03/18 07:09 Pulse 80 02/03/18 07:09 Resp 16 02/03/18 07:09 BP 152/88 H 02/03/18 07:59 Pulse Ox 92 L 02/03/18 07:09 Weight - Most Recent: 266 lb I&O - Last 24 hours: Intake & Output 02/02/18 02/03/18 02/03/18 22:59 06:59 14:59 Intake Total 640 300 500 Output Total 1975 250 400 Balance -1335 50 100 Lab Results - Last 24 hrs: Laboratory Results - last 24 hr 02/03/18 Range/Units 05:48 Sodium 140 (140-148) mmol/L Potassium 3.7 (3.6-5.2) mmol/L Chloride 102 (100-108) mmol/L Carbon Dioxide 29 (21-32) mmol/L Anion Gap 9.2 (5.0-14.0) mmol/L BUN 10 (7-18) mg/dL Creatinine 0.9 (0.8-1.3) mg/dL Est Cr Clr Drug Dosing 75.66 mL/min Estimated GFR (MDRD) > 60 (>60) Glucose 120 H (74-106) mg/dL Calcium 8.4 L (8.5-10.1) mg/dL [place] Results - Last 24 hrs: Microbiology 01/29/18 13:38 Aerobic Blood Culture - Preliminary Blood - Arm, Right NO GROWTH AFTER 4 DAYS Anaerobic Blood Culture - Preliminary NO GROWTH AFTER 4 DAYS 01/29/18 13:25 Aerobic Blood Culture - Preliminary Blood - Arm, Right NO GROWTH AFTER 4 DAYS Anaerobic Blood Culture - Preliminary NO GROWTH AFTER 4 DAYS Med Orders - Current: Current Medications Acetaminophen (Tylenol Extra Strength) 1,000 mg PO TID [facility] Last Admin: 02/03/18 08:00 Dose: 1,000 mg Al Hydroxide/Mg Hydroxide (Mag-Al Plus) 30 ml PO Q4H PRN PRN Reason: Constipation Aspirin (Halfprin) 81 mg PO DAILY [facility] Last Admin: 02/03/18 07:59 Dose: 81 mg Bisacodyl (Dulcolax) 10 mg PO DAILY PRN PRN Reason: Constipation Carvedilol (Coreg) 3.125 mg PO WITHDINNER [facility] Last Admin: 02/02/18 16:45 Dose: 3.125 mg Clopidogrel Bisulfate (Plavix) 75 mg PO DAILY [facility] Last Admin: 02/03/18 07:59 Dose: 75 mg Docusate Sodium (Colace) 100 mg PO BID PRN PRN Reason: Constipation Finasteride (Proscar) 5 mg PO DAILY [facility] Last Admin: 02/03/18 08:00 Dose: 5 mg Hydrochlorothiazide (Hydrochlorothiazide) 25 mg PO DAILY [facility] Last Admin: 02/03/18 07:59 Dose: 25 mg Ketorolac Tromethamine (Toradol) 30 mg IVPUSH Q6H PRN PRN Reason: Pain/Fever Stop: 02/03/18 13:22 Last Admin: 02/02/18 02:55 Dose: 30 mg Levalbuterol HCl (Xopenex) 0.63 mg NEB Q6H PRN PRN Reason: Shortness of Breath Last Admin: 02/02/18 03:00 Dose: 0.63 mg Levofloxacin (Levaquin) 500 mg PO Q24H [facility] Last Admin: 02/02/18 14:58 Dose: 500 mg Lisinopril (Prinivil) 30 mg PO DAILY [facility] Last Admin: 02/03/18 07:59 Dose: 30 mg Magnesium Hydroxide (Milk Of Magnesia) 30 ml PO BID PRN PRN Reason: Constipation Melatonin (Melatonin) 3 mg PO BEDTIME PRN PRN Reason: Insomnia Last Admin: 01/31/18 21:44 Dose: 3 mg Morphine Sulfate (Morphine) 2 mg IVPUSH Q2H PRN PRN Reason: Pain Nitroglycerin (Nitrostat) 0.4 mg SL ASDIRECTED PRN PRN Reason: CHEST PAIN Ondansetron HCl (Zofran) 8 mg IVPUSH Q4H PRN PRN Reason: Nausea/Vomiting Oxycodone HCl (Oxycodone) 5 - 10 mg PO Q4H PRN PRN Reason: Pain Last Admin: 02/03/18 07:22 Dose: 5 mg Pantoprazole Sodium (Protonix) 40 mg PO BEDTIME [facility] Last Admin: 02/02/18 21:14 Dose: 40 mg Alfuzosin Er 10mg ( (Ptom)) 0 each PO BEDTIME [facility] Last Admin: 02/02/18 21:14 Dose: 1 each Folic Acid 400mcg ( (Ptom)) 0 each PO DAILY [facility] Last Admin: 02/03/18 07:59 Dose: 1 each Rosuvastatin Calcium (Crestor) 15 mg PO BEDTIME [facility] Last Admin: 02/02/18 21:12 Dose: 15 mg Senna (Senna) 8.6 mg PO BID PRN PRN Reason: Constipation Sodium Chloride (Saline Flush) 10 ml FLUSH DAILY [facility] Last Admin: 02/03/18 08:01 Dose: 10 ml Tramadol HCl (Ultram) 100 mg PO Q6H PRN PRN Reason: Pain Last Admin: 01/31/18 00:22 Dose: 100 mg Valacyclovir HCl (Valtrex) 500 mg PO BID [facility] Last Admin: 02/03/18 08:01 Dose: 500 mg Zolpidem Tartrate (Ambien) 5 mg PO BEDTIME PRN PRN Reason: Sleep Last Admin: 02/02/18 21:11 Dose: 5 mg Discontinued Medications Acetaminophen (Tylenol Extra Strength) 1,000 mg PO ONETIME ONE Stop: 01/27/18 07:41 Last Admin: 01/27/18 08:36 Dose: 1,000 mg Acetaminophen (Tylenol) 325 mg PO Q4H PRN PRN Reason: Fever Last Admin: 01/31/18 07:37 Dose: 325 mg Albuterol/Ipratropium (Duoneb 3.0-0.5 Mg/3 Ml) 3 ml NEB ONETIME ONE Stop: 01/27/18 10:01 Last Admin: 01/27/18 09:28 Dose: 3 ml Aspirin (Aspirin) 81 mg PO DAILY [facility] Last Admin: 01/28/18 08:27 Dose: 81 mg Aspirin (Halfprin) 81 mg PO DAILY [facility] Last Admin: 01/30/18 10:46 Dose: 81 mg Azithromycin (Zithromax) 500 mg PO DAILY [facility] Last Admin: 02/02/18 08:56 Dose: 500 mg Carvedilol (Coreg) 3.125 mg PO WITHDINNER [facility] Last Admin: 01/29/18 17:02 Dose: 3.125 mg Clopidogrel Bisulfate (Plavix) 75 mg PO DAILY [facility] Last Admin: 01/30/18 10:55 Dose: 75 mg Ropivacaine 49.25 ml/Ketorolac Tromethamine 30 mg/Epinephrine HCl 0.5 mg/ Clonidine HCl 80 mcg/ Sodium Chloride 48.45 ml 0 ml INJECT ONETIME ONE Stop: 01/27/18 09:46 Last Admin: 01/27/18 12:27 Dose: 100 ml Tranexamic Acid 3,000 mg/ (Sodium Chloride 100 ml) 0 mg TOP ASDIRECTED [facility] Stop: 01/27/18 09:46 Last Admin: 01/27/18 12:26 Dose: 3,000 bag Diphenhydramine HCl (Benadryl) 25 mg IVPUSH Q4H PRN PRN Reason: Itching Ephedrine Sulfate (Ephedrine Sulfate) Confirm Administered Dose 50 mg .ROUTE .STK-MED ONE Stop: 01/27/18 11:58 Fentanyl (Sublimaze) Confirm Administered Dose 100 mcg .ROUTE .STK-MED ONE Stop: 01/27/18 07:30 Finasteride (Proscar) 5 mg PO DAILY [facility] Last Admin: 01/28/18 08:29 Dose: 5 mg Finasteride (Proscar) 5 mg PO DAILY [facility] Last Admin: 01/30/18 10:51 Dose: 5 mg Folic Acid (Folic Acid) 0.5 mg PO DAILY [facility] Last Admin: 01/28/18 08:28 Dose: 0.5 mg Furosemide (Lasix) 20 mg IVPUSH ONETIME ONE Stop: 02/01/18 16:01 Last Admin: 02/01/18 16:09 Dose: 20 mg Furosemide (Lasix) 20 mg IV ONETIME ONE Stop: 02/02/18 09:31 Last Admin: 02/02/18 09:58 Dose: 20 mg Furosemide (Lasix) 20 mg IV ONETIME ONE Stop: 02/03/18 06:31 Last Admin: 02/03/18 07:22 Dose: 20 mg Gabapentin (Neurontin) 300 mg PO ONETIME ONE Stop: 01/27/18 07:41 Last Admin: 01/27/18 08:36 Dose: 300 mg Gentamicin Sulfate (Gentamicin) Confirm Administered Dose 240 [address] [facility] ONE Stop: 01/27/18 09:55 Hydrochlorothiazide (Hydrochlorothiazide) 25 mg PO DAILY [facility] Last Admin: 01/30/18 10:46 Dose: 25 mg Lactated Ringer's (Ringers, Lactated) 1,000 mls @ 0 mls/hr IV ASDIRECTED [facility] Last Admin: 01/27/18 08:37 Dose: 100 mls/hr Vancomycin HCl 1 gm/ Sodium (Chloride) 250 mls @ 150 mls/hr IV ONETIME ONE Stop: 01/27/18 09:39 Last Admin: 01/27/18 09:25 Dose: 150 mls/hr Lactated Ringer's (Ringers, Lactated) Confirm Administered Dose 1,000 mls @ as directed .ROUTE .[facility] ONE Stop: 01/27/18 12:44 Lactated Ringer's (Ringers, Lactated) 1,000 mls @ 100 mls/hr IV ASDIRECTED [facility] Last Admin: 01/28/18 23:11 Dose: 100 mls/hr Vancomycin HCl 1.5 gm/ Sodium (Chloride) 250 mls @ 167 mls/hr IV ONETIME ONE Stop: 01/27/18 23:29 Last Admin: 01/27/18 21:43 Dose: 167 mls/hr Lactated Ringer's (Ringers, Lactated) 500 mls @ 500 mls/hr IV BOLUS [facility] Stop: 01/28/18 03:44 Last Admin: 01/28/18 02:40 Dose: 500 mls/hr Sodium Chloride (Normal Saline) 500 mls @ 500 mls/hr IV .BOLUS ONE Stop: 01/28/18 11:29 Last Admin: 01/28/18 11:20 Dose: 500 mls/hr Sodium Chloride (Normal Saline) 500 mls @ 500 mls/hr IV .BOLUS ONE Stop: 01/28/18 15:14 Last Admin: 01/28/18 15:24 Dose: 500 mls/hr Ceftriaxone Sodium 2 gm/ (Sodium Chloride) 50 mls @ 100 mls/hr IV Q24H [facility] Last Admin: 02/02/18 10:32 Dose: 100 mls/hr Vancomycin HCl 1.5 gm/ Sodium (Chloride) 250 mls @ 150 mls/hr IV Q12H [facility] Last Admin: 02/02/18 02:43 Dose: 150 mls/hr Ketamine HCl (Ketalar) 36 mg IV ASDIRECTED [place] Ketorolac Tromethamine (Toradol) 30 mg IVPUSH Q8H PRN PRN Reason: Pain Stop: 01/30/18 12:55 Last Admin: 01/28/18 23:02 Dose: 30 mg Lisinopril 10 mg/ Lisinopril (20 mg) 30 mg PO DAILY [facility] Last Admin: 01/28/18 11:47 Dose: Not Given Midazolam HCl (Versed 1 Mg/Ml) Confirm Administered Dose 2 mg .ROUTE .STK-MED ONE Stop: 01/27/18 07:30 Naloxone HCl (Narcan) 0.1 mg IVPUSH ASDIRECTED PRN PRN Reason: Oversedation Stop: 01/28/18 12:55 Oxycodone/Acetaminophen (Percocet 325-5 Mg) 2 tab PO Q4H PRN PRN Reason: Pain Last Admin: 01/29/18 06:16 Dose: 1 tab Oxycodone/Acetaminophen (Percocet 325-5 Mg) 1 - 2 tab PO Q4H PRN PRN Reason: Pain Last Admin: 01/31/18 07:37 Dose: 1 tab Alfuzosin Er 10mg ( (Ptom)) 0 each PO DAILY [facility] Lisinopril 30mg ( (Ptom)) 0 each PO DAILY [facility] Last Admin: 01/30/18 10:55 Dose: 1 each Potassium Chloride (Klor-Con M20) 40 meq PO ONETIME ONE Stop: 02/02/18 09:31 Last Admin: 02/02/18 09:58 Dose: 40 meq Potassium Chloride (Klor-Con M20) 40 meq PO ONETIME ONE Stop: 02/02/18 17:01 Last Admin: 02/02/18 16:45 Dose: 40 meq Povidone Iodine (Betadine 10% Soln) Confirm Administered Dose 1 ml .ROUTE .STK- MED ONE Stop: 01/27/18 09:55 Last Admin: 01/27/18 12:50 Dose: 10 ml Propofol (Diprivan 20 Ml) Confirm Administered Dose 200 mg .ROUTE .STK-MED ONE Stop: 01/27/18 07:30 Propofol (Diprivan 20 Ml) Confirm Administered Dose 200 mg .ROUTE .STK-MED ONE Stop: 01/27/18 11:47 Propofol (Diprivan 20 Ml) Confirm Administered Dose 200 mg .ROUTE .STK-MED ONE Stop: 01/27/18 12:20 Rosuvastatin Calcium (Crestor) 15 mg PO BEDTIME [facility] Last Admin: 01/29/18 20:04 Dose: 15 mg Scopolamine (Transderm-Scop) 1.5 mg TOP Q72H [facility] Last Admin: 01/27/18 08:36 Dose: 1.5 mg Vancomycin HCl (Vancomycin) 1 gm IV .PHARMACY TO DOSE [facility] Stop: 01/27/18 16:00 - Exam General: Reports: Alert, Oriented, Cooperative, No Acute Distress Lungs: Reports: Clear to Auscultation, Normal Respiratory Effort Cardiovascular: Reports: Regular Rate, Regular Rhythm, No Murmurs GI/Abdominal Exam: Soft, Non-Tender, No Organomegaly, No Distention Discharge Operative/Procedures - Procedures Performed Operations: R TKA LP Indication: CSF analysis Arterial Line Indication: hemodynamic monitoring Chest Tube Indication: pneumothorax Thoracentesis Indication: pleural effusion Paracentesis Indication: ascites
[2018-02-03] MEDS: Levofloxacin 500 MG Tab PO SCH (11:53)
== END 2018-02-03 12:20 | disposition home or self-care (01) | DRG 982 ==
LOC: JP.SDS 07:26 → JP.MS 12:55 → JP.SDS 01-28 14:00 → JP.MS 01-28 14:00 → OBSVTOIN 01-30 11:56
PROVIDERS: ADMIT Orthopaedic Surgery; ATTEND Hospitalist
PROC: 0SRC069 Replacement of Right Knee Joint with Oxidized Zirconium on Polyethylene Synthetic Substitute, Cemented, Open Approach (ICD-10-PCS; principal; 2018-01-27)
DX: J20.8 Acute bronchitis due to other specified organisms (principal); F05 Delirium due to known physiological condition; R44.3 Hallucinations, unspecified; R50.9 Fever, unspecified; I95.9 Hypotension, unspecified; M17.11 Unilateral primary osteoarthritis, right knee; Z96.651 Presence of right artificial knee joint; I10 Essential (primary) hypertension; I25.10 Atherosclerotic heart disease of native coronary artery without angina pectoris; R31.9 Hematuria, unspecified; Z95.5 Presence of coronary angioplasty implant and graft; Z95.1 Presence of aortocoronary bypass graft; G47.33 Obstructive sleep apnea (adult) (pediatric); E78.5 Hyperlipidemia, unspecified; E11.9 Type 2 diabetes mellitus without complications; M79.89 Other specified soft tissue disorders; Z87.891 Personal history of nicotine dependence
CPT/HCPCS: 27447; 36415 ×3; 71045 ×2; 73560 ×2; 80053 ×2; 85025 ×2; 86850; 86900; 86901; 87040 ×2; 93971 ×2; 94640 ×2; 94762; 97110 ×7; 97116 ×2; 97162; 97165; 97530 ×4; 97535 ×4; A9270 ×44; C1713; C1776; J0171; J0735; J1580; J1885 ×5; J2250; J2704 ×3; J2795; J3010; J3370 ×2; J7040 ×2; J7050 ×6; J7120 ×5; J7620; 80048; 81001; 85027; 86140; 87804; 87804-59; 97140-GP; J0696; J1940

== ENCOUNTER 2018-02-06 16:59 | Emergency (ER) | payer MEDICARE, BC ==
[2018-02-06 17:11] VITALS: BP 133/44
[2018-02-06] MEDS ORDERED: Alum Hydrox/Mag Hydrox/Simeth 15 ML, Lidocaine 2% 15 ML PO ONE ×2 (17:27)
--- NOTE | 2018-02-06 17:34 | EDM.PDOC ---
<Stoney Suresh Mike - Last Filed: 02/06/18 21:19> ED HPI GENERAL MEDICAL PROBLEM - General Chief Complaint: Chest Pain Stated Complaint: LEFT UPPER ABDOMEN PAIN Time Seen by Provider: 02/06/18 17:20 - Related Data Allergies Allergy/AdvReac Type Severity Reaction Status Date / Time ketoconazole [From Nizoral] Allergy Facial Verified 02/06/18 17:14 Swelling lovastatin [From Mevacor] Allergy Leg Cramps Verified 02/06/18 17:14 mupirocin [From Bactroban] Allergy Swelling Verified 02/06/18 17:14 mupirocin calcium Allergy Swelling Verified 02/06/18 17:14 [From Bactroban] procainamide [Procainamide] Allergy Fever Verified 02/06/18 17:14 Sulfa (Sulfonamide Allergy Rash Verified 02/06/18 17:14 Antibiotics) Home Meds: Home Meds Hydrochlorothiazide 25 mg PO DAILY 03/25/14 [History] Lisinopril [Prinivil] 30 mg PO DAILY 03/25/14 [History] Rosuvastatin Calcium [Crestor] 15 mg PO BEDTIME 03/25/14 [History] Aspirin [[place] Aspirin] 81 mg PO DAILY 08/19/14 [History] Nitroglycerin [Nitrostat] 0.4 mg SL ASDIRECTED 08/19/14 [History] Saw [place] 900 mg PO BID 08/19/14 [History] Tadalafil [Cialis] 20 mg PO ASDIRECTED PRN 08/19/14 [History] Alfuzosin [Uroxatral] 10 mg PO DAILY 02/26/15 [History] Fluticasone Propionate [Flonase Allergy Relief] 2 sprays NS DAILY 02/26/15 [ History] Folic Acid 0.4 mg PO DAILY 02/26/15 [History] Levalbuterol HCl [Xopenex] 0.63 mg NEB Q6HRRT PRN 02/26/15 [History] Finasteride [Proscar] 5 mg PO DAILY 11/30/15 [History] valACYclovir [Valtrex] 500 mg PO BID PRN 12/03/15 [History] Carvedilol [Coreg] 3.125 mg PO WITHDINNER 03/19/17 [History] Clopidogrel [Plavix] 75 mg PO DAILY 03/19/17 [History] Glucosamine/D3/[place]ia Lili [Glucosamine Complex Tablet] 1 each PO BID [History] Pantoprazole Sodium [Protonix] 40 mg PO DAILY 03/19/17 [History] [place]-3/DHA/Epa/Fish Oil [Fish Oil 1,000 mg Softgel] 1 cap PO DAILY 01/11/18 [ History] Flaxseed Oil [Flaxseed] 1,000 mg PO DAILY 01/27/18 [History] Acetaminophen/oxyCODONE [Percocet 325-5 MG] 1 tab PO Q6HR #90 tablet 01/28/18 [ Rx] Levofloxacin [Levaquin] 500 mg PO Q24H #3 tablet 02/03/18 [Rx] Azelastine [Astelin Nasal Soln] 2 spray INH DAILY 02/06/18 [History] Course - Vital Signs Last Recorded V/S: Last Vital Signs Temp 36.6 C 02/06/18 17:19 Pulse 81 02/06/18 17:19 Resp 17 02/06/18 17:19 BP 133/44 L 02/06/18 17:19 Pulse Ox 95 02/06/18 17:19 - Orders/Labs/Meds Labs: Laboratory Tests 02/06/18 02/06/18 02/06/18 Range/Units 17:35 17:35 17:53 WBC 10.1 (4.5-11.0) K/uL RBC 3.44 L (4.30-5.90) M/uL Hgb 10.4 L (12.0-15.0) g/dL Hct 30.8 L (40.0-54.0) % MCV 90 (80-98) fL MCH 30 (27-31) pg MCHC 34 (32-36) % Plt Count 334 (150-400) K/uL Neut % (Auto) 72 H (36-66) % Lymph % (Auto) 11 L (24-44) % [place] % (Auto) 11 H (2-6) % Eos % (Auto) 5 H (2-4) % Baso % (Auto) 0 (0-1) % Sodium 134 L (140-148) mmol/L Potassium 3.5 L (3.6-5.2) mmol/L Chloride 98 L (100-108) mmol/L Carbon Dioxide 28 (21-32) mmol/L Anion Gap 11.5 (5.0-14.0) mmol/L BUN 11 (7-18) mg/dL Creatinine 0.9 (0.8-1.3) mg/dL Est Cr Clr Drug Dosing 73.10 mL/min Estimated GFR (MDRD) > 60 (>60) Glucose 167 H (74-106) mg/dL Calcium 8.2 L (8.5-10.1) mg/dL Total Bilirubin 1.2 H (0.2-1.0) mg/dL AST 31 (15-37) U/L ALT 33 (12-78) U/L Alkaline Phosphatase 118 H (46-116) U/L Troponin I < 0.017 (0.000-0.056) ng/mL Total Protein 7.0 (6.4-8.2) g/dL Albumin 2.9 L (3.4-5.0) g/dL Globulin 4.1 H (2.3-3.5) g/dL Albumin/Globulin Ratio 0.7 L (1.2-2.2) Meds: Medications Discontinued Medications Generic Name Dose Route Start Last Admin Trade Name Freq PRN Reason Stop Dose Admin Al Hydroxide/Mg Hydroxide 15 0 ml 02/06/18 17:27 02/06/18 17:35 ml/ Lidocaine HCl 15 ml PO 02/06/18 17:28 15 ml ONETIME ONE Administration - Re-Assessments/Exams Free Text/Narrative Re-Assessment/Exam: 02/06/18 21:16 This patient was received from Dr. Feliz at about 1830 hrs. He had been complaining of some left upper quadrant pain for the last few days started a day or 2 before he got out of the hospital after his knee replacement. He is taking some pain meds he described it as kind of a a sharp grinding type of pain and he demonstrated grinding his this together he said it seemed to be related to posture because sitting up it was fine if he laid down it came on was really strong but if he turned to one side of the other it would go away. He said it wasn't heartburn she's had that before Dr. Feliz did give him a GI cocktail and he said it he got some relief from that however. The GI cocktail was Maalox lidocaine and simethicone. I examined the patient and I think I can palpate a little bit of stool to the left side of the abdomen over the descending colon seems to be just slightly tender his heart shows an irregularly irregular rhythm and his lungs are clear. He does have a history of ablation for atrial fibrillation in the past but has not had chronic atrial fibrillation he doesn't know when he might of converted. He does take Plavix but he's not on any anticoagulant. The troponin test was negative. I reviewed his EKG shows atrial fibrillation and there were nonspecific to T changes on it. I did some electrolytes his potassium was 3.5 on January the patient aware that he could just take a half teaspoon of salt substitute daily for the CBC was okay chest x-ray was normal and a flat and upright abdomen did show a fairly good bit of stool in the the descending colon but wasn't able to see much elsewhere recourses he's a pretty big johnny so. Didn't penetrate very well. 02/06/18 21:19 Departure - Departure Time of Disposition: 21:21 Disposition: Home, Self-Care 01 Condition: Fair Clinical Impression: Acute abdominal pain - Discharge Information Instructions: Abdominal Pain, Adult, [id number] Referrals: Allen Etienne MD [Primary Care Provider] - Forms: ED Department Discharge Additional Instructions: Most likely the pain you're having is from some retained stool in the colon. The pain that varies with posture is pretty typical. Try using a laxative you could use something gentle such as Gisel lax or milk of magnesia or even magnesium citrate that will clear up a lot faster. High-fiber diet even like a bowl of bran cereal twice a day maybe helpful. The medicine you received had an antacid which would help with reflux or gastritis but also had some simethicone which is a treatment for gas. Mylanta and Maalox Plus contain both medicines. The medication you're taking, pantoprazole 40 mg once a day can be increased to twice a day for a short while to just see how that works. Many people with bad reflux find that other medications such as omeprazole are more effective than the pantoprazole. You have atrial fibrillation right now. You should talk with your doctor in the next couple of days to decide if something needs to be done about it and also discuss whether you need to be on one of the actual anticoagulations like warfarin or Xarelto and so forth. <Avi Moreau G - Last Filed: 02/10/18 17:59> ED HPI GENERAL MEDICAL PROBLEM - General Source of Information: Reports: Patient, Old Records, RN History Limitations: Reports: No Limitations - History of Present Illness INITIAL COMMENTS - FREE TEXT/NARRATIVE: 72 yo male here with RUQ abdominal pain for a few days that is getting worse. He notices it mostly when he lies down. If he lays on the left side his pain is tolerable. No fever. Good appetite. No change in bowels. No nausea, SOB, or diaphoresis. Just got out of the hospital for a knee replacement. No self tx. No pain with coughing. Does have a hx of CAD. Onset: Gradual Onset Date: 02/04/18 Duration: Day(s): (2+), Getting Worse Location: Reports: Abdomen (LUQ). Denies: Radiates to Quality: Reports: Ache Severity: Moderate Improves with: Reports: Other (sitting up) Worsens with: Reports: Other (lying down) Context: Reports: Other (Recent knee replacement.) Associated Symptoms: Reports: No Other Symptoms Treatments FUR TAILOR: Reports: Other (see below) (none) Past Medical History HEENT History: Reports: Allergic Rhinitis, Impaired Vision Other HEENT History: glasses for reading Cardiovascular History: Reports: Arrhythmia, High Cholesterol, Hypertension, Stents Respiratory History: Reports: COPD, Other (See Below) Other Respiratory History: pneumonia in Oct Gastrointestinal History: Reports: Colon Polyp, GERD Genitourinary History: Reports: Prostate Disorder Musculoskeletal History: Reports: Arthritis, Other (See Below) Other Musculoskeletal History: arthritis right knee Endocrine/Metabolic History: Reports: Obesity/BMI 30+ Hematologic History: Reports: Anesthesia Reaction Other Hematologic History: elevated blood pressure with anesthesia many years ago Dermatologic History: Reports: Cellulitis, Psoriasis Other Dermatologic History: cellulitis on cheek 01/14 resolved - Infectious Disease History Infectious Disease History: Reports: MRSA - Past Surgical History HEENT Surgical History: Reports: Cataract Surgery Cardiovascular Surgical History: Reports: Cardiac Ablation, Coronary Artery Bypass, Coronary Artery Stent Respiratory Surgical History: Reports: None GI Surgical History: Reports: Cholecystectomy, Colonoscopy, EGD, Hernia Repair/ Other, Polypectomy, Other (See Below) Other GI Surgeries/Procedures: umbilical hernia Male Surgical History: Reports: Cystectomy Musculoskeletal Surgical History: Reports: Arthroscopic Knee, Knee Replacement, Other (See Below) Other Musculoskeletal Surgeries/Procedures:: R TKA 01/27/2018 Social & Family History - Family History Family Medical History: Noncontributory - Tobacco Use Smoking Status *Q: Never Smoker - Caffeine Use Caffeine Use: Reports: Coffee - Recreational Drug Use Recreational Drug Use: No ED ROS GENERAL - Review of Systems Review Of Systems: See Below Constitutional: Reports: No Symptoms HEENT: Reports: No Symptoms Respiratory: Reports: No Symptoms Cardiovascular: Reports: No Symptoms GI/Abdominal: Reports: Abdominal Pain (LUQ). Denies: Anorexia, Black Stool, Bloody Stool, Constipation, Diarrhea, Decreased Appetite, Distension, Hematemesis, Hematochezia, Nausea, Vomiting : Reports: No Symptoms Musculoskeletal: Reports: No Symptoms Skin: Reports: No Symptoms Neurological: Reports: No Symptoms Psychiatric: Reports: No Symptoms ED EXAM, GI/ABD - Physical Exam Exam: See Below Exam Limited By: No Limitations General Appearance: Alert, WD/WN, No Apparent Distress, Obese Eyes: Bilateral: Normal Appearance Ears: Normal External Exam, Normal Canal Nose: Normal Inspection, Normal Mucosa, No Blood Throat/Mouth: Normal Inspection, Normal Lips, Normal Oropharynx, Normal Voice, No Airway Compromise Head: Atraumatic, Normocephalic Neck: Normal Inspection, Supple, Non-Tender Respiratory/Chest: No Respiratory Distress, Lungs Clear, Normal Breath Sounds, No Accessory Muscle Use Cardiovascular: Regular Rate, Rhythm, No Edema GI/Abdominal Exam: Normal Bowel Sounds, Soft, Non-Tender, Other (Obese.). No: Guarding, Rigid, Rebound, Tender (Does not hurt to press over the LUQ), Abnormal Bowel Sounds, Hernia Back Exam: Normal Inspection Extremities: Normal Inspection, Normal Range of Motion, Non-Tender, No Pedal Edema Neurological: Alert, Oriented, CN II-XII Intact, Normal Cognition, No Motor/ Sensory Deficits Psychiatric: Normal Affect, Normal Mood Skin Exam: Warm, Dry, Intact, Normal Color, No Rash Lymphatic: No Adenopathy EKG INTERPRETATION EKG Date: 02/06/18 Time: 17:45 Rhythm: A-Fib Rate (Beats/Min): 73 [place]: Normal P-Wave: Absent QRS: RBBB ST-T: Normal QT: Normal Comparison: Change From Previous EKG (rhythm change from NSR to Afib) Course - Orders/Labs/Meds Labs: Laboratory Tests 02/06/18 02/06/18 02/06/18 Range/Units 17:35 17:35 17:53 WBC 10.1 (4.5-11.0) K/uL RBC 3.44 L (4.30-5.90) M/uL Hgb 10.4 L (12.0-15.0) g/dL Hct 30.8 L (40.0-54.0) % MCV 90 (80-98) fL MCH 30 (27-31) pg MCHC 34 (32-36) % Plt Count 334 (150-400) K/uL Neut % (Auto) 72 H (36-66) % Lymph % (Auto) 11 L (24-44) % [place] % (Auto) 11 H (2-6) % Eos % (Auto) 5 H (2-4) % Baso % (Auto) 0 (0-1) % Sodium 134 L (140-148) mmol/L Potassium 3.5 L (3.6-5.2) mmol/L Chloride 98 L (100-108) mmol/L Carbon Dioxide 28 (21-32) mmol/L Anion Gap 11.5 (5.0-14.0) mmol/L BUN 11 (7-18) mg/dL Creatinine 0.9 (0.8-1.3) mg/dL Est Cr Clr Drug Dosing 73.10 mL/min Estimated GFR (MDRD) > 60 (>60) Glucose 167 H (74-106) mg/dL Calcium 8.2 L (8.5-10.1) mg/dL Total Bilirubin 1.2 H (0.2-1.0) mg/dL AST 31 (15-37) U/L ALT 33 (12-78) U/L Alkaline Phosphatase 118 H (46-116) U/L Troponin I < 0.017 (0.000-0.056) ng/mL Total Protein 7.0 (6.4-8.2) g/dL Albumin 2.9 L (3.4-5.0) g/dL Globulin 4.1 H (2.3-3.5) g/dL Albumin/Globulin Ratio 0.7 L (1.2-2.2)
--- NOTE | 2018-02-08 10:22 | CR ---
Chest 2V INDICATION: pain FINDINGS: Comparison 01/30/2018. Sternotomy with fractured sternotomy wires. Cardiac enlargement. Mild hyperinflation. Chest otherwise negative.
--- NOTE | 2018-02-08 10:27 | CR ---
Abdomen 2V AP Flat Upright INDICATION: luq pain suspect constip FINDINGS: Normal bowel gas pattern. No evidence for small bowel obstruction or free air. Surgical cli ps in the right upper quadrant. Exam otherwise unremarkable.
== END 2018-02-06 21:35 | disposition home or self-care (01) ==
LOC: JP.ED 16:59
DX: R10.12 Left upper quadrant pain (principal); I10 Essential (primary) hypertension; E78.00 Pure hypercholesterolemia, unspecified; J44.9 Chronic obstructive pulmonary disease, unspecified; K21.9 Gastro-esophageal reflux disease without esophagitis; E66.9 Obesity, unspecified; Z79.899 Other long term (current) drug therapy; Z79.82 Long term (current) use of aspirin; Z88.2 Allergy status to sulfonamides; Z88.8 Allergy status to other drugs, medicaments and biological substances
CPT/HCPCS: 36415; 71046; 74019; 80053; 84484; 85025; 93005; 99285; A9270

== ENCOUNTER 2019-01-13 08:44 | Day surgery (SDC) | payer MEDICARE, BC ==
[~2019-01-13 08:44] MED LIST: Dextrose 5%-Lactated Ringers 1,000 ML IV SCH
[2019-01-13] MEDS ORDERED: Ampicillin/Sulbactam Na 3 GM in Sodium Chloride 0.9% 100 ML IV ONE (09:30)
[2019-01-13] MEDS ORDERED: fentaNYL 100 MCG/2 ML SDV ONE (09:54)
[2019-01-13] MEDS ORDERED: Propofol 200 MG/20 ML SDV ONE (09:54)
[2019-01-13] MEDS ORDERED: Midazolam 1 MG/ML 2 ML SDV ONE (09:54)
[2019-01-13 11:30] VITALS: BP 151/90
--- NOTE | 2019-01-16 16:25 | OR ---
DATE OF PROCEDURE: 01/13/2019 PREOPERATIVE DIAGNOSIS: Dysphagia referable to distal esophagus. POSTOPERATIVE DIAGNOSES: 1. Dysphagia referable to the distal esophagus with wide-open esophagogastric junction and associated minimal inflammation. 2. Mild antral gastritis. PROCEDURE: Esophagogastroduodenoscopy with antral biopsies for CLOtest. ANESTHESIA: IV sedation. INDICATION FOR PROCEDURE: A 73-year-old presenting with some increasing dysphagia referable to the distal esophagus, does have a history of gastroesophageal reflux disease and presently on Protonix 40 mg a day. It is notable the patient reports that he will often bring up large volumes of mucoid-type secretions, but not ingested food per se. The plan is to proceed with upper GI endoscopy with biopsies and/or dilation as indicated. Potential risks including bleeding and perforation were discussed, and the patient wishes to proceed. DESCRIPTION OF PROCEDURE: The patient was taken to the operating room and placed in a left lateral decubitus position. IV sedation was administered, after which the upper GI endoscope was passed orally through the length of the esophagus and the stomach with retroflexion view of the fundus, and thereafter, through the pyloric channel, into the junction of the third and fourth portions of the duodenum. Findings included normal hypopharynx, larynx, and upper esophageal sphincter. Esophageal body was likewise unremarkable. At the EG junction, the patient had no significant stricturing. The esophagogastric junction was completely wide open. There was almost very minimal inflammation at the esophagogastric junction. Within the stomach, there was some mild antral patchy gastritis, and the visualized portion of the duodenum and pyloric channel were unremarkable. At this point, biopsies were obtained from the antrum and sent for CLOtest for H. pylori. Minimal bleeding from the biopsy site was seen and the procedure was then concluded. The plan will be to have the patient continue the Protonix which appears to be controlling his reflux fairly well. The biggest problem appeared to be the large amount of mucoid secretions that he is getting from the nasopharynx, and we will see Dr. Etienne within the next couple of weeks regarding potentially adding additional agents to dry up the mucoid nasopharyngeal secretions. Noe Cervantes MD /[id number]
== END 2019-01-13 11:40 | disposition home or self-care (01) ==
LOC: JP.SDS 08:44
PROVIDERS: ATTEND Surgery
DX: K21.0 Gastro-esophageal reflux disease with esophagitis (principal); K29.70 Gastritis, unspecified, without bleeding; I25.10 Atherosclerotic heart disease of native coronary artery without angina pectoris; I10 Essential (primary) hypertension; E11.9 Type 2 diabetes mellitus without complications; G47.33 Obstructive sleep apnea (adult) (pediatric)
CPT/HCPCS: 36415; 85610; 87081; J0287; J2250; J2704; J3010; J7030; J7042

== ENCOUNTER 2020-02-20 05:26 | Inpatient (IN) | payer MEDICARE, BC ==
[2020-02-20] MEDS ORDERED: Albuterol/Ipratropium 3.0-0.5 MG/3 ML Neb Soln NEB ONE (06:30)
[2020-02-20] MEDS: Dextrose 5%-Lactated Ringers 1,000 ML IV SCH ×2 (06:30→21:50)
[2020-02-20] MEDS ORDERED: ceFAZolin 1 GM Vial ONE (06:40)
[2020-02-20] MEDS ORDERED: Bupivacaine 0.5% 50 ML MDV ONE (06:42)
[2020-02-20] MEDS ORDERED: Lidocaine 1% with EPINEPHrine 1:100,000 50 ML MDV ONE (06:42)
[2020-02-20] MEDS ORDERED: Propofol 200 MG/20 ML SDV ONE (07:06)
[2020-02-20] MEDS ORDERED: Ondansetron 4 MG/2 ML SDV ONE (07:06)
[2020-02-20] MEDS ORDERED: Rocuronium 50 MG/5 ML Vial ONE (07:06)
[2020-02-20] MEDS ORDERED: Neostigmine Methylsulfate 1 MG/ML 5 ML Syringe ONE (07:06)
[2020-02-20] MEDS ORDERED: Glycopyrrolate 0.2 MG/ML 5 ML MDV ONE (07:06)
[2020-02-20] MEDS ORDERED: Succinylcholine 200 MG/10 ML MDV ONE (07:06)
[2020-02-20] MEDS ORDERED: fentaNYL 250 MCG/5 ML SDV ONE (07:06)
[2020-02-20] MEDS ORDERED: Dexamethasone 4 MG/ML SDV ONE (07:06)
[2020-02-20] MEDS ORDERED: ceFAZolin 2 GM in Premix Bag 1 BAG IV ONE (07:15)
[2020-02-20] MEDS ORDERED: Naloxone 0.4 MG/ML SDV IVPUSH PRN (07:37)
[2020-02-20] MEDS ORDERED: HYDROmorphone/Normal Saline 15 MG/30 ML PCA IV PRN (07:37)
[2020-02-20] MEDS ORDERED: Naloxone 0.4 MG/ML SDV IV PRN (09:31)
[2020-02-20] MEDS ORDERED: hydrOXYzine HCL 100 MG/2 ML SDV IM PRN (09:49)
[2020-02-20] MEDS ORDERED: Ondansetron 4 MG/2 ML SDV IVPUSH PRN (09:49)
[2020-02-20] MEDS ORDERED: Nitroglycerin 0.4 MG Tab.SL SL PRN (09:53)
[2020-02-20] MEDS ORDERED: Albuterol 8 GM Inhaler INH PRN (09:57)
[2020-02-20] MEDS: Pantoprazole 40 MG Tab.CR PO SCH (13:35)
[2020-02-20] MEDS: Aspirin 81 MG Tab.EC PO SCH (13:35)
[2020-02-20] MEDS: ceFAZolin 2 GM in Premix Bag 1 BAG IV SCH ×2 (13:35→21:52)
[2020-02-20] MEDS: Furosemide 40 MG Tab PO SCH (13:35)
[2020-02-20] MEDS: Finasteride 5 MG Tab PO SCH (13:37)
[2020-02-20] MEDS ORDERED: Clopidogrel 75 MG Tab PO SCH (14:00)
[2020-02-20] MEDS: Carvedilol 3.125 MG Tab PO SCH (20:47)
[2020-02-20] MEDS: ALFUZOSIN 10 MG PO SCH (20:50)
[2020-02-20] MEDS: Rosuvastatin 10 MG Tab PO SCH (20:51)
[2020-02-20] MEDS: Glycopyrrolate 15.6 MCG Cap.W.Dev Kit of 6 IH SCH (20:51)
[2020-02-20] MEDS: Losartan 25 MG Tab PO SCH (20:51)
[2020-02-21] MEDS: ceFAZolin 2 GM in Premix Bag 1 BAG IV SCH (05:50)
[2020-02-21] MEDS: Glycopyrrolate 15.6 MCG Cap.W.Dev Kit of 6 IH SCH ×2 (07:10→22:41)
[2020-02-21] MEDS: Pantoprazole 40 MG Tab.CR PO SCH (07:37)
[2020-02-21] MEDS ORDERED: Potassium Chloride 20 MEQ Tab.ER PO ONE (08:00)
[2020-02-21] MEDS: Lactated Ringers 1,000 ML IV SCH ×2 (08:39→22:47)
[2020-02-21] MEDS ORDERED: Azelastine Nasal Soln 30 ML Spray Bottle NASBOTH SCH (09:00)
[2020-02-21] MEDS ORDERED: Folic Acid 1 MG Tab PO SCH (09:00)
[2020-02-21] MEDS ORDERED: Non-Formulary Medication 1 Each (Warfarin [Coumadin] 6 MG) PO SCH (09:00)
[2020-02-21] MEDS: Carvedilol 3.125 MG Tab PO SCH ×2 (09:53→23:43)
[2020-02-21] MEDS: Aspirin 81 MG Tab.EC PO SCH (09:53)
[2020-02-21] MEDS: Finasteride 5 MG Tab PO SCH (09:54)
[2020-02-21] MEDS: Furosemide 40 MG Tab PO SCH (09:54)
[2020-02-21] MEDS: Losartan 25 MG Tab PO SCH ×2 (09:54→22:38)
[2020-02-21] MEDS: Magnesium Sulfate/Water 2 GM in Premix Bag 1 BAG IV SCH ×3 (09:55→22:42)
[2020-02-21] MEDS: [UNRECOGNIZED DRUG - OTHER] INH SCH (10:13)
--- NOTE | 2020-02-21 14:48 | PN ---
DATE OF SERVICE: 02/21/2020 SUBJECTIVE: Valentin is postoperative day #1. His vital signs have been stable. He has been afebrile. Pain has been controlled. He has been taught how to pump his [place] shunt. He has no other questions or concerns today. Hemoglobin 12.5, PT 16.1, INR is 1.53, potassium 3.3, glucose is 140. REVIEW OF SYSTEMS: Remainder of review of systems negative for any pertinent positives and negatives. OBJECTIVE: GENERAL: Valentin Alfaro is a 74-year-old male. He is alert and orientated. VITAL SIGNS: TPR at 0700, 97.9, 42, 18, blood pressure 146/72. HEENT: Negative. NECK: Supple. HEART: Regular rate and rhythm. LUNGS: Clear. ABDOMEN: Dressings dry and intact. [place] shunt was palpated and it is working well. Abdomen remains distended, but not as tight. EXTREMITIES: Without peripheral edema. ASSESSMENT: Placement of [place] peripheral vascular shunt for repeatedly recurring tense ascites. Date of surgery 02/20/2020. Surgeon: Noe Cervantes MD. PLAN: 1. Discontinue [place] catheter. 2. Dilaudid 2 mg 1 to 2 every 4 hours p.r.n. pain. 3. Lactated Ringer's 75 mL per hour. 4. Magnesium sulfate 2 g IV q.6 hours x72 hours. 5. Potassium chloride 40 mEq one time this a.m. 6. Coumadin 6 mg p.o. daily. 7. Discontinue D5 LR. 8. Discontinue HIP HOP ARTIST and continuous pulse ox. 9. Restart Breo inhaler as he takes at home. We will evaluate p.r.n. or in a.m. Bianca Marroquin PA-C /[id number]
[2020-02-21] MEDS: HYDROmorphone 2 MG Tab PO PRN ×2 (18:34→22:37)
[2020-02-21] MEDS: Rosuvastatin 10 MG Tab PO SCH (22:38)
[2020-02-21] MEDS: ALFUZOSIN 10 MG PO SCH (22:39)
[2020-02-22] MEDS: HYDROmorphone 2 MG Tab PO PRN (03:06)
[2020-02-22] MEDS: Magnesium Sulfate/Water 2 GM in Premix Bag 1 BAG IV SCH (03:09)
[2020-02-22] MEDS: Glycopyrrolate 15.6 MCG Cap.W.Dev Kit of 6 IH SCH (07:18)
[2020-02-22] MEDS: [UNRECOGNIZED DRUG - OTHER] INH SCH (07:18)
[2020-02-22] MEDS: Pantoprazole 40 MG Tab.CR PO SCH (07:29)
[2020-02-22 07:34] VITALS: BP 146/63; PULSE 51
--- NOTE | 2020-02-22 11:17 | DISCH ---
ADMISSION DIAGNOSES: 1. Recurrent abdominal ascites. 2. Chronic kidney, liver disease. 3. Coronary artery disease. 4. Chronic atrial fibrillation. 5. Essential hypertension. 6. Hyperlipidemia. 7. Benign prostatic hypertrophy with lower urinary tract symptoms. 8. Type 2 diabetes mellitus. 9. Gastroesophageal reflux disease. 10.Obstructive sleep apnea on CPAP. 11.History of bradycardia. 12.Moderate chronic obstructive pulmonary disease. DISCHARGE DIAGNOSES: 1. Placement of [place] peripheral vascular shunt for repeatedly recurring tense ascites. 2. Date of surgery: 02/20/2020. Surgeon: Noe Cervantes MD. HISTORY: Valentin Alfaro is a pleasant 74-year-old male with chronic kidney disease and recurring tense ascites. After preoperative evaluation and discussion of possible risks and possible complications, he wishes to proceed with placement of [place] shunt. HOSPITAL COURSE: Valentin had his surgery on 02/20/2020. He had no operative complications. On postoperative day 1, his [place] catheter was discontinued. He was started on Dilaudid BI TRI OPERATOR. Magnesium and potassium were replaced and he was restarted on his Coumadin. On postoperative day 2, he was able to manage pumping his shunt without any difficulty. His pain was well managed, activity was good, vital signs stable, pain controlled, oral intake and output adequate, and he was able to be discharged to home without any complications. PHYSICAL EXAMINATION: GENERAL: Valentin Alfaro is a pleasant 74-year-old male. He is alert and orientated. VITAL SIGNS: Height is 5 feet 10 inches, weight is 215 pounds. BMI is 30.8. TPR at 0732; 97.2, 51, 16. Blood pressure 146/63 HEENT: Negative. NECK: Supple. HEART: Regular rate and rhythm. Pulse rate around 51. Dressing, right side dry and intact, and the clavicle incision is healing well. ABDOMEN: Remains to be distended, but very soft. EXTREMITIES: Without peripheral edema. DISPOSITION: Discharged to home. CONDITION: Stable and improving. FOLLOWUP: Follow up with Noe Cervantes MD, at [facility] on 02/29/2020 at 11:30 a.m. He is to have PT and INR to be checked at 11:00 a.m. before appointment. PT and INR at the time of discharge, INR was 1.46 and PT was 15.4. HOME MEDICATIONS: Dilaudid 2 mg every 6 hours p.r.n. pain, #28. He is to resume his home medications: 1. Albuterol inhaler 8.5 g inhalation as needed p.r.n. shortness of breath. 2. Alfuzosin 10 mg at bedtime. 3. Aspirin 81 mg oral daily. 4. Astelin nasal solution 2 sprays daily. 5. Proscar 5 mg oral daily. 6. Folic acid 0.4 mg oral daily. 7. Furosemide 40 mg oral daily. 8. Glucosamine complex tablets 1 oral twice a day. 9. Nitrostat 0.4 sublingual as directed. 10.Losartan potassium 25 mg oral twice daily. 11.Protonix 40 mg oral daily. 12.Klor-Con 10 mEq oral twice daily. 13.Relvar 200 mcg inhalation daily. 14.Crestor 20 mg oral at bedtime. 15.Saw [place] 900 mg twice daily. 16.Spiriva HandiHaler 1 puff inhalation daily. 17.Coumadin 6 mg oral daily. 18.Coreg 1/2 tab in the morning and a full tablet in the p.m. 19.Valtrex 500 mg twice daily as needed for skin. DIET: Usual diet as tolerated. Fluid restriction 64 ounces per day. ACTIVITY: As tolerated. Driving after discharge: Do not drive within 6 hours of taking Dilaudid. Shower/bathing: May shower. DISCHARGE INSTRUCTIONS: Notify provider if any fever, increased pain, swelling, redness, nausea, vomiting. Keep site clean and dry. Pump [place] shunt 10 times 4 times a day. He may pump it more often if needed.
--- NOTE | 2020-02-29 19:40 | OR ---
DATE OF PROCEDURE: 02/20/2020 SURGEON: Noe Cervantes MD PREOPERATIVE DIAGNOSIS: Rapidly recurring tense ascites. POSTOPERATIVE DIAGNOSIS: Rapidly recurring tense ascites. OPERATIVE PROCEDURE: Placement of [place]rell peritoneovenous shunt (96210). ANESTHESIA: General. 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 The options of a SIPS procedure versus peritoneovenous shunt were reviewed with the patient, and pros and cons gone over. So as to avoid higher likelihood of hepatic encephalopathy, he preferred to proceed with a [place] shunt. Potential risks of the procedure including bleeding, infection, possibility that the shunt may not keep up with the ascites formation or become occluded, requiring revision and/or removal were reviewed, and the patient wishes to proceed. DETAILS OF PROCEDURE: The patient was taken to the operating room and placed in a supine position. After general endotracheal anesthesia was induced, a [place] catheter was inserted, and the abdomen was prepped and draped, along with the chest and lower neck. Initially, the right internal jugular vein was identified with ultrasound and cannulated, and guidewire was passed from there into the superior vena cava. A transverse incision was then made along the right costal margin in the midaxillary line and carried down through the skin and subcutaneous tissue, and through the underlying fascia. The needle was then placed with removal of peritoneal fluid and the guidewire then manipulated into the mid and lower abdomen along the right paracolic gutter area. The location for the Bath shunt pump was then bluntly constructed in the anterior chest wall just above the incision. The shunt was then tunneled between the two incisions. At this point, then the abdominal portion was placed over an introducer and peel-away catheter. Prior to placement of the catheter, 2 L of fluid was removed from the peritoneal cavity and then one additional liter of normal saline placed, so as to dilute the peritoneal fluid to some extent and reduce the chances of clinically-evident DIC. There was good flow noted within the shunt at this point. The catheter on the venous end was cut such that the tip would lie in the area of the right atrium and superior vena caval junction. This was then placed without difficulty over the introducer and peel- away catheter as well, and good pump function was confirmed. The jugular incision was then closed with 4-0 Vicryl subdermal stitch. Both wounds had been irrigated with Zyvox- containing saline solution. The subcostal incision was then closed with 2 layers of 3-0 and 4-0 Vicryl stitch deep and jaime for the skin. Dressing was then applied. The patient was taken to the recovery room in satisfactory condition. There were no evident complications. Physician office support assistant, Bianca Marroquin, played an essential role in assisting in this case; helping to position the patient, retract structures as needed, as well as suturing and cutting sutures when indicated. Her presence improved patient safety and decreased the operative time. Noe Cervantes MD /[id number] MTDD
== END 2020-02-22 09:55 | disposition home or self-care (01) | DRG 406 ==
LOC: JP.SDS 05:26 → JP.MS 08:40 → EDSTATUS 11:45
PROVIDERS: ADMIT Surgery; ATTEND Surgery
PROC: 0W1G0JW Bypass Peritoneal Cavity to Upper Vein with Synthetic Substitute, Open Approach (ICD-10-PCS; principal; 2020-02-20)
PROC: 0JHT0YZ Insertion of Other Device into Trunk Subcutaneous Tissue and Fascia, Open Approach (ICD-10-PCS; 2020-02-20)
DX: K70.31 Alcoholic cirrhosis of liver with ascites (principal); I48.20 Chronic atrial fibrillation, unspecified; I12.9 Hypertensive chronic kidney disease with stage 1 through stage 4 chronic kidney disease, or unspecified chronic kidney disease; N18.9 Chronic kidney disease, unspecified; I25.10 Atherosclerotic heart disease of native coronary artery without angina pectoris; E78.5 Hyperlipidemia, unspecified; E11.22 Type 2 diabetes mellitus with diabetic chronic kidney disease; K21.9 Gastro-esophageal reflux disease without esophagitis; G47.33 Obstructive sleep apnea (adult) (pediatric); N40.0 Benign prostatic hyperplasia without lower urinary tract symptoms; J44.9 Chronic obstructive pulmonary disease, unspecified; Z79.82 Long term (current) use of aspirin; Z79.899 Other long term (current) drug therapy; Z79.01 Long term (current) use of anticoagulants; Z88.2 Allergy status to sulfonamides; Z88.8 Allergy status to other drugs, medicaments and biological substances
CPT/HCPCS: 36415; 76000; 80053; 83735; 83880; 84100; 85025; 85027; 85610; 85730; 86850; 86900; 86901; 86920; 86922; 93005; 93010; 94640; 94762; A9270-GY; J0330; J0690; J1100; J1170; J1642; J2020; J2405; J2704; J2710; J3010; J3475; J3490; J7120; J7121; J7620-GY

== ENCOUNTER 2020-02-24 10:17 | Emergency (ER) | payer MEDICARE, BC ==
[2020-02-24] MEDS ORDERED: Sodium Chloride 0.9% 10 ML Syringe FLUSH PRN (10:59)
--- NOTE | 2020-02-24 11:06 | EDM.PDOC ---
ED HPI GENERAL MEDICAL PROBLEM - General Chief Complaint: General Stated Complaint: NOT FEELING RIGHT Time Seen by Provider: 02/24/20 10:50 Source of Information: Reports: Patient, Old Records, RN History Limitations: Reports: No Limitations - History of Present Illness INITIAL COMMENTS - FREE TEXT/NARRATIVE: 74 yo male recently had a vena-cava filter placed here at [facility]. Shortly after getting home he developed a slightly unsteady gait and slurred speech. He thought it was his pain medicine so he stopped it and his sx's did not improve. He called Dr. Etienne today about his concerns and was told to go to the ER. Was off his warfarin for his surgical procedure and has been back on it since this past Thursday. Has a pHx of CAD treated with stents at [facility]. Takes his warfarin at night. Denies any recent chest pains. Is due to see cardiology next week. Onset: Unknown/Unsure Onset Date: 02/21/20 Duration: Day(s): (2-3), Constant Location: Reports: Head Quality: Reports: Other (no pain) Severity: Mild Improves with: Reports: None Worsens with: Reports: Other (uncertain) Context: Reports: Other (See HPI) Associated Symptoms: Denies: Confusion, Chest Pain, Headaches, Seizure, Weakness Treatments MOLD CHIPPER: Reports: Other (see below) (none) surgical site in chst Pain Score (Numeric/FACES): 1 - Related Data Allergies Allergy/AdvReac Type Severity Reaction Status Date / Time amlodipine Allergy Cannot Verified 02/24/20 10:45 Remember hydralazine Allergy Hives Verified 02/24/20 10:45 isosorbide [From Imdur] Allergy Rash Verified 02/24/20 10:45 ketoconazole [From Nizoral] Allergy Facial Verified 02/24/20 10:45 Swelling mupirocin [From Bactroban] Allergy Swelling Verified 02/24/20 10:45 mupirocin calcium Allergy Swelling Verified 02/24/20 10:45 [From Bactroban] procainamide [Procainamide] Allergy Fever Verified 02/24/20 10:45 Sulfa (Sulfonamide Allergy Rash Verified 02/24/20 10:45 Antibiotics) lovastatin [From Mevacor] AdvReac Leg Cramps Verified 02/24/20 10:45 Home Meds: Home Meds Rosuvastatin Calcium [Crestor] 20 mg PO BEDTIME 03/25/14 [History] Nitroglycerin [Nitrostat] 0.4 mg SL ASDIRECTED 08/19/14 [History] Saw [place] 900 mg PO BID 08/19/14 [History] Alfuzosin [Uroxatral] 10 mg PO BEDTIME 02/26/15 [History] Folic Acid 0.4 mg PO DAILY 02/26/15 [History] Finasteride [Proscar] 5 mg PO DAILY 11/30/15 [History] valACYclovir [Valtrex] 500 mg PO BID PRN 12/03/15 [History] Glucosamine/D3/Boswellia Lili [Glucosamine Complex Tablet] 1 each PO BID [History] Pantoprazole Sodium [Protonix] 40 mg PO DAILY 03/19/17 [History] carvediloL [Coreg] 3.125 mg PO BID 03/19/17 [History] Azelastine [Astelin Nasal Soln] 2 spray INH DAILY 02/06/18 [History] Warfarin [Coumadin] 6 mg PO DAILY 05/03/18 [History] Furosemide 40 mg PO DAILY 01/10/19 [History] Losartan Potassium 25 mg PO BID 01/10/19 [History] Potassium Chloride [Klor-Con 10] 10 meq PO BID 01/10/19 [History] Relvare 200 mcg INH DAILY 01/13/19 [History] Tiotropium [Spiriva HandiHaler] 1 puff INH DAILY 01/13/19 [History] Aspirin [Halfprin] 81 mg PO DAILY 02/16/20 [History] Albuterol Sulfate [Proair Hfa] 8.5 gm IH ASDIRECTED PRN 02/20/20 [History] HYDROmorphone [Dilaudid] 2 mg PO Q6HR PRN #28 tablet 02/22/20 [Rx] Past Medical History HEENT History: Reports: Allergic Rhinitis, Hard of Hearing, Impaired Vision Other HEENT History: glasses for reading Cardiovascular History: Reports: Afib, Arrhythmia, High Cholesterol, Hypertension, Stents Respiratory History: Reports: COPD, Sleep Apnea, Other (See Below) Other Respiratory History: pneumonia in Feb Gastrointestinal History: Reports: Cirrhosis, Colon Polyp, GERD, Other (See Below) Other Gastrointestinal History: liver problem with ascities Genitourinary History: Reports: Prostate Disorder Musculoskeletal History: Reports: Arthritis, Other (See Below) Other Musculoskeletal History: arthritis right knee Endocrine/Metabolic History: Reports: Obesity/BMI 30+ Hematologic History: Reports: Anesthesia Reaction Other Hematologic History: elevated blood pressure with anesthesia many years ago Dermatologic History: Reports: Cellulitis, Psoriasis Other Dermatologic History: cellulitis on cheek 01/14 resolved - Infectious Disease History Infectious Disease History: Reports: MRSA, Other (See Below) 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 dorcas shunt Male Surgical History: Reports: Cystectomy Musculoskeletal Surgical History: Reports: Arthroscopic Knee, Knee Replacement, Other (See Below) Other Musculoskeletal Surgeries/Procedures:: R TKA 01/27/2018 Social & Family History - Family History Family Medical History: Noncontributory - Tobacco Use Smoking Status *Q: Former Smoker Used Tobacco, but Quit: Yes Month/Year Tobacco Last Used: 35 years ago - Caffeine Use Caffeine Use: Reports: Coffee - Recreational Drug Use Recreational Drug Use: No ED ROS GENERAL - Review of Systems Review Of Systems: See Below Constitutional: Reports: No Symptoms HEENT: Reports: No Symptoms Respiratory: Reports: No Symptoms Cardiovascular: Reports: No Symptoms GI/Abdominal: Reports: No Symptoms : Reports: No Symptoms Musculoskeletal: Reports: No Symptoms Skin: Reports: No Symptoms Neurological: Reports: Trouble Speaking, Change in Speech (slurring), Gait Disturbance (slightly unsteady gait), Other (speech slurring, no trouble swallowing). Denies: Confusion, Dizziness, Headache, Numbness, Seizure, Syncope , Weakness Psychiatric: Reports: No Symptoms ED EXAM, GENERAL - Physical Exam Exam: See Below Exam Limited By: No Limitations General Appearance: Alert, WD/WN, No Apparent Distress Eye Exam: Bilateral Eye: EOMI, Normal Inspection, PERRL Ears: Normal External Exam, Normal Canal, Hearing Grossly Normal Ear Exam: Bilateral Ear: Auricle Normal, Canal Normal Nose: Normal Inspection, No Blood Throat/Mouth: Normal Inspection, Normal Lips, Normal Oropharynx, No Airway Compromise Head: Atraumatic, Normocephalic Neck: Normal Inspection Respiratory/Chest: No Respiratory Distress, Lungs Clear, Normal Breath Sounds, No Accessory Muscle Use Cardiovascular: Regular Rate, Rhythm, No Edema GI/Abdominal: Normal Bowel Sounds, Soft, Non-Tender, No Distention. No: Distended, Guarding, Rigid, Rebound, Tender, Abnormal Bowel Sounds Extremities: Normal Inspection, Normal Range of Motion, Non-Tender, No Pedal Edema Neurological: Alert, Oriented, Normal Cognition, No Motor/Sensory Deficits, Other (speech slightly slurred). No: Confused, Disoriented, Slow to Respond, Unresponsive Psychiatric: Normal Affect, Normal Mood Skin Exam: Warm, Dry, Intact, Normal Color, No Rash EKG INTERPRETATION EKG Date: 02/24/20 Time: 12:15 Rhythm: A-Fib Rate (Beats/Min): 44 [place]: Normal P-Wave: Present QRS: RBBB ST-T: Normal QT: Normal Comparison: No Change Course - Vital Signs Text/Narrative:: Case discussed with [facility] @ [facility], recommends transfer for further work up. Patient wants to talk over with his before making a decision. Last Recorded V/S: Last Vital Signs Temp 36.8 C 02/24/20 10:43 Pulse 56 L 02/24/20 10:43 Resp 16 02/24/20 10:43 BP 154/53 H 02/24/20 10:43 Pulse Ox 96 02/24/20 10:43 - Orders/Labs/Meds Orders: Active Orders 24 hr Category Date Time Status Cardiac Monitoring [RC] .As Directed Care 02/24/20 10:59 Active EKG Documentation Completion [RC] ASDIRECTED Care 02/24/20 11:56 Active Sodium Chloride 0.9% [Saline Flush] Med 02/24/20 10:59 Active 10 ml FLUSH ASDIRECTED PRN Saline Lock Insert [OM.PC] Routine Oth 02/24/20 10:59 Ordered EKG 12 Lead [EK] Routine Ther 02/24/20 11:56 Ordered Medication Orders Sodium Chloride (Saline Flush) 10 ml FLUSH ASDIRECTED PRN PRN Reason: Keep Vein Open Last Admin: 02/24/20 11:13 Dose: 10 ml Labs: Laboratory Tests 02/24/20 02/24/20 02/24/20 Range/Units 10:59 11:18 11:18 WBC 5.6 (4.5-11.0) K/uL RBC 3.80 L (4.30-5.90) M/uL Hgb 12.3 (12.0-15.0) g/dL Hct 38.1 L (40.0-54.0) % MCV 100 H (80-98) fL MCH 32 H (27-31) pg MCHC 32 (32-36) % Plt Count 116 L (150-400) K/uL PT 17.3 H (9.5-12.0) sec INR 1.65 H (0.80-1.20) Sodium 139 L (140-148) mmol/L Potassium 3.7 (3.6-5.2) mmol/L Chloride 104 (100-108) mmol/L Carbon Dioxide 31 (21-32) mmol/L Anion Gap 7.7 (5.0-14.0) mmol/L BUN 15 (7-18) mg/dL Creatinine 0.8 (0.8-1.3) mg/dL Est Cr Clr Drug Dosing 82.38 mL/min Estimated GFR (MDRD) > 60 (>60) Glucose 89 (74-106) mg/dL Calcium 8.5 (8.5-10.1) mg/dL Troponin I 0.129 H* (0.000-0.056) ng/mL Meds: Medications Generic Name Dose Route Start Last Admin Trade Name Freq PRN Reason Stop Dose Admin Sodium Chloride 10 ml 02/24/20 10:59 02/24/20 11:13 Saline Flush FLUSH 10 ml ASDIRECTED PRN Administration Keep Vein Open Discontinued Medications Generic Name Dose Route Start Last Admin Trade Name Freq PRN Reason Stop Dose Admin Potassium Chloride 20 meq 02/24/20 12:00 02/24/20 12:10 Potassium Chloride PO 02/24/20 12:01 20 meq ONETIME ONE Administration Warfarin Sodium 5 mg 02/24/20 11:52 02/24/20 12:10 Coumadin PO 02/24/20 11:53 5 mg ONETIME ONE Administration - Radiology Interpretation Free Text/Narrative:: Head CT scan-nothing acute CT Results Date: 02/24/20 CT Results Time: 11:52 Departure - Departure Time of Disposition: 13:00 Disposition: DC/Tfer to Acute Hospital 02 Condition: Fair Clinical Impression: Neurological deficit due to ischemic stroke, Subtherapeutic international normalized ratio (INR), Elevated troponin I level - Discharge Information *PRESCRIPTION DRUG MONITORING PROGRAM REVIEWED*: Not Applicable *COPY OF PRESCRIPTION DRUG MONITORING REPORT IN PATIENT ARIANA: Not Applicable Referrals: PCP,None [Primary Care Provider] - Forms: ED Department Discharge Sepsis Event Note - Evaluation Sepsis Screening Result: No Definite Risk - Focused Exam Vital Signs: Vital Signs Temp Pulse Resp BP Pulse Ox 02/24/20 10:43 36.8 C 56 L 16 154/53 H 96 02/24/20 10:36 36.8 C 56 L 16 154/53 H 96 Date Exam was Performed: 02/24/20 Time Exam was Performed: 12:45 - My Orders Last 24 Hours: My Active Orders 02/24/20 10:59 Cardiac Monitoring [RC] .As Directed Sodium Chloride 0.9% [Saline Flush] 10 ml FLUSH ASDIRECTED PRN Saline Lock Insert [OM.PC] Routine 02/24/20 11:56 EKG Documentation Completion [RC] ASDIRECTED EKG 12 Lead [EK] Routine - Assessment/Plan Last 24 Hours: My Active Orders 02/24/20 10:59 Cardiac Monitoring [RC] .As Directed Sodium Chloride 0.9% [Saline Flush] 10 ml FLUSH ASDIRECTED PRN Saline Lock Insert [OM.PC] Routine 02/24/20 11:56 EKG Documentation Completion [RC] ASDIRECTED EKG 12 Lead [EK] Routine
--- NOTE | 2020-02-24 11:37 | CT ---
Head wo Cont CLINICAL HISTORY: Slurred speech and gait in balance COMPARISON: MR brain 2019 TECHNIQUE: Transverse scans were obtained from the base of the skull through the vertex without IV contrast on a multislice, multidetector CT scanner. Auto dosage reduction and iterative reconstruction techniques employed. FINDINGS: No focal abnormal parenchymal density is identified. There is no mass effect, hemorrhage, or extraaxial collection. The basal cisterns and sulci over the convexities are mildly prominent. The ventricles are normal for age. There is atheromatous calcification in the basilar artery. IMPRESSION: Age-related atrophy. No acute intracranial abnormalities
[2020-02-24] MEDS ORDERED: Warfarin 5 MG Tab PO ONE (11:52)
[2020-02-24] MEDS ORDERED: Potassium Chloride 10 MEQ Cap.ER PO ONE (12:00)
[2020-02-24 14:55] VITALS: BP 176/84; PULSE 54
== END 2020-02-24 16:13 ==
LOC: JP.ED 10:17
DX: I63.9 Cerebral infarction, unspecified (principal); R79.1 Abnormal coagulation profile; R79.89 Other specified abnormal findings of blood chemistry; I10 Essential (primary) hypertension; I48.91 Unspecified atrial fibrillation; E78.00 Pure hypercholesterolemia, unspecified; J44.9 Chronic obstructive pulmonary disease, unspecified; K21.9 Gastro-esophageal reflux disease without esophagitis; M19.90 Unspecified osteoarthritis, unspecified site; E66.9 Obesity, unspecified; Z68.30 Body mass index [BMI] 30.0-30.9, adult; Z87.891 Personal history of nicotine dependence; Z88.8 Allergy status to other drugs, medicaments and biological substances; Z88.2 Allergy status to sulfonamides; Z88.1 Allergy status to other antibiotic agents; Z79.899 Other long term (current) drug therapy; Z79.01 Long term (current) use of anticoagulants; Z79.82 Long term (current) use of aspirin
CPT/HCPCS: 36415; 70450; 80048; 84484; 85027; 85610; 93005; 99285; A9270; 93010

== ENCOUNTER 2020-05-08 05:26 | Day surgery (SDC) | payer MEDICARE, BC ==
[2020-05-08] MEDS ORDERED: Dextrose 5%-Lactated Ringers 1,000 ML IV SCH (06:00)
[2020-05-08] MEDS ORDERED: Meropenem 500 MG SDV ONE (06:51)
[2020-05-08] MEDS ORDERED: Bupivacaine 0.5% 50 ML MDV ONE (06:51)
[2020-05-08] MEDS ORDERED: Lidocaine 1% with EPINEPHrine 1:100,000 50 ML MDV ONE (06:52)
[2020-05-08] MEDS ORDERED: ceFAZolin/Dextrose,Iso-Osmotic 2 GM/50 ML Duplex Bag IV ONE (06:52)
[2020-05-08] MEDS ORDERED: ceFAZolin 2 GM in Premix Bag 1 BAG IV ONE (07:00)
[2020-05-08] MEDS ORDERED: Albuterol 8 GM Inhaler INH ONE (07:00)
[2020-05-08] MEDS ORDERED: Neostigmine Methylsulfate 1 MG/ML 5 ML Syringe ONE (07:13)
[2020-05-08] MEDS ORDERED: Dexamethasone 4 MG/ML SDV ONE (07:13)
[2020-05-08] MEDS ORDERED: Glycopyrrolate 0.2 MG/ML 5 ML MDV ONE (07:13)
[2020-05-08] MEDS ORDERED: Ondansetron 4 MG/2 ML SDV ONE (07:13)
[2020-05-08] MEDS ORDERED: fentaNYL 250 MCG/5 ML SDV ONE (07:13)
[2020-05-08] MEDS ORDERED: Propofol 200 MG/20 ML SDV ONE (07:13)
[2020-05-08] MEDS ORDERED: Rocuronium 50 MG/5 ML Vial ONE (07:13)
[2020-05-08] MEDS ORDERED: Succinylcholine 200 MG/10 ML MDV ONE (07:13)
[2020-05-08] MEDS ORDERED: Alteplase 2 MG Vial IV ONE (07:15)
[2020-05-08] MEDS ORDERED: traMADol 50 MG Tab PO ONE (09:45)
[2020-05-08] MEDS ORDERED: Lidocaine 1% with EPINEPHrine 1:100,000 50 ML MDV SUBCUT ONE (11:40)
[2020-05-08 11:52] VITALS: BP 165/85; PULSE 50
--- NOTE | 2020-05-20 12:36 | OR ---
DATE OF PROCEDURE: 05/08/2020 SURGEON: Noe Cervantes MD PREOPERATIVE DIAGNOSIS: Poorly functioning Terry shunt. POSTOPERATIVE DIAGNOSIS: Poorly functioning Terry shunt. OPERATIVE PROCEDURE: 1. Injection of thrombolytic agent into Terry shunt pump (98591). 2. Revision of the Terry peritoneovenous shunt (81890). ANESTHESIA: General. KINESIOLOGY PROFESSOR: Bianca Marroquin PA-C INDICATIONS FOR PROCEDURE: A 74-year-old male with alcoholic-associated cirrhosis and tense ascites who has been managing this with combination of peritoneovenous shunts and intermittent paracentesis. His shunt appears to be not functioning adequately. It compresses fairly well, but the filling is fairly slow indicative of partial obstruction of the abdominal limb of the shunt. The plan is to proceed with injection of some thrombolytic agent into the pump shunt as well as revision of the abdominal portion. This may simply be a matter of repositioning this in a non-angulated manner. Potential risks of the procedure including infection and possibility of the procedure not being adequate in terms of controlling his ascites were all gone over, and the patient wishes to proceed. DETAILS OF PROCEDURE: The patient was taken to the operating room and placed in a supine position. After general endotracheal anesthesia was induced, the abdomen and chest areas were prepped and draped. 2 mg of alteplase was then injected with a 27-gauge needle into the Terry shunt pump, and at that point, this was left to dwell in that area rather than pumping it immediately. A small incision was then made over the previously made incision for the abdominal portion of the shunt. A small collar incision in the lower chest was then made over the course of the shunt as well and that area then clamped with a [place] clamp so as to avoid area of embolization during the manipulation of the abdominal portion of the shunt. After the abdominal portion of shunt was then mobilized upward, it was found to be clear of any irrigation. It appeared to be acutely angulated at the point where it entered the peritoneal cavity while this turning at an almost 180-degree angle upward as this was freed up. An introducer and peel-away catheter were directed downward into the abdomen over a guidewire, which had been passed in that direction. The abdominal portion of the shunt was then placed via the peel-away catheter in that direction, and this appeared to lay in a much nicer and angulated position. At that point, the fascia at the point where the abdominal portion of shunt entering the peritoneal cavity was closed around the shunt with a pursestring stitch of 3-0 Vicryl stitch. The fascia was then further closed with some 3-0 Vicryl stitch, the subcutaneous tissue with 4-0 Vicryl stitch, and the skin with jaime. At that point, the clamp was taken off the shunt tubing and that area closed with 4-0 Vicryl subcutaneous stitch and 4-0 Vicryl subcuticular stitch. Glue was applied to each of the sites. Pump was then noted to pump satisfactorily and with both rapid filling and emptying following compression of the shunt, and the patient was taken to the recovery room in satisfactory condition. Physician assistant boys track coach, Bianca Marroquin, played an essential role in assisting in this case, helping to position the patient, retract structures as needed, as well as suturing and cutting sutures when indicated. Her presence improved patient safety and decreased operative time. Noe Cervantes MD /[id number]
== END 2020-05-08 12:15 | disposition home or self-care (01) ==
LOC: JP.SDS 05:26
PROVIDERS: ATTEND Surgery
DX: T85.698A Other mechanical complication of other specified internal prosthetic devices, implants and grafts, initial encounter (principal); K70.31 Alcoholic cirrhosis of liver with ascites; I25.10 Atherosclerotic heart disease of native coronary artery without angina pectoris; I48.20 Chronic atrial fibrillation, unspecified; I10 Essential (primary) hypertension; E11.9 Type 2 diabetes mellitus without complications; J44.9 Chronic obstructive pulmonary disease, unspecified; N40.0 Benign prostatic hyperplasia without lower urinary tract symptoms; G47.33 Obstructive sleep apnea (adult) (pediatric); Z95.5 Presence of coronary angioplasty implant and graft; Z79.01 Long term (current) use of anticoagulants; Z87.891 Personal history of nicotine dependence; Z88.5 Allergy status to narcotic agent; Z88.8 Allergy status to other drugs, medicaments and biological substances; Z79.899 Other long term (current) drug therapy; Z79.82 Long term (current) use of aspirin
CPT/HCPCS: 36415; 37212; 49426; 85610; A9270; J0330; J0690; J1100; J1642; J2020; J2185; J2405; J2704; J2710; J2997; J3010; J3490; J7121

== ENCOUNTER 2020-06-05 07:15 | Inpatient (IN) | payer MEDICARE, BC ==
[~2020-06-05 07:15] MED LIST changes: -Dextrose 5%-Lactated Ringers 1,000 ML IV SCH; +Meropenem 500 MG SDV ONE
[2020-06-05] MEDS ORDERED: Rocuronium 50 MG/5 ML Vial ONE (07:23)
[2020-06-05] MEDS ORDERED: Neostigmine Methylsulfate 1 MG/ML 5 ML Syringe ONE (07:23)
[2020-06-05] MEDS ORDERED: Ondansetron 4 MG/2 ML SDV ONE (07:23)
[2020-06-05] MEDS ORDERED: Glycopyrrolate 0.2 MG/ML 5 ML MDV ONE (07:23)
[2020-06-05] MEDS ORDERED: Propofol 200 MG/20 ML SDV ONE (07:23)
[2020-06-05] MEDS ORDERED: Succinylcholine 200 MG/10 ML MDV ONE (07:23)
[2020-06-05] MEDS ORDERED: Dexamethasone 4 MG/ML SDV ONE (07:23)
[2020-06-05] MEDS ORDERED: fentaNYL 250 MCG/5 ML SDV ONE (07:24)
[2020-06-05] MEDS ORDERED: Dextrose 5%-Lactated Ringers 1,000 ML IV SCH (09:30)
[2020-06-05] MEDS ORDERED: Albuterol 0.083% 2.5 MG/3 ML Neb Soln INH ONE (09:45)
[2020-06-05] MEDS ORDERED: Arformoterol 15 MCG/2 ML Neb Soln NEB ONE (10:00)
[2020-06-05] MEDS ORDERED: Budesonide 0.5 MG/2 ML Neb Susp NEB ONE (10:00)
[2020-06-05] MEDS ORDERED: Morphine PF 150 MG/30 ML PCA Syringe IV PRN (10:24)
[2020-06-05] MEDS ORDERED: diphenhydrAMINE 50 MG/ML SDV IVPUSH PRN (10:24)
[2020-06-05] MEDS ORDERED: Naloxone 0.4 MG/ML SDV IVPUSH PRN (10:24)
[2020-06-05] MEDS ORDERED: diphenhydrAMINE 25 MG Cap PO PRN (10:24)
[2020-06-05] MEDS ORDERED: Ondansetron 4 MG/2 ML SDV IVPUSH PRN ×2 (10:24→15:10)
[2020-06-05] MEDS ORDERED: Linezolid 600 MG in Premix Bag 1 BAG IV ONE (10:45)
[2020-06-05] MEDS ORDERED: Naloxone 0.4 MG/ML SDV IV PRN (11:00)
[2020-06-05] MEDS ORDERED: Albuterol 0.083% 2.5 MG/3 ML Neb Soln INH PRN (15:16)
[2020-06-05] MEDS ORDERED: Nitroglycerin 0.4 MG Tab.SL SL PRN (15:21)
[2020-06-05] MEDS: Furosemide 20 MG/2 ML VIAL IVPUSH SCH ×2 (16:48→22:08)
[2020-06-05] MEDS: Minoxidil 2.5 MG Tab PO SCH (20:10)
[2020-06-05] MEDS: Carvedilol 3.125 MG Tab PO SCH (20:11)
[2020-06-05] MEDS: ALFUZOSIN 10 MG PO SCH (20:12)
[2020-06-05] MEDS: Azelastine Nasal Soln 30 ML Spray Bottle NASBOTH SCH (20:12)
[2020-06-05] MEDS: Budesonide 0.5 MG/2 ML Neb Susp INH SCH (20:18)
[2020-06-05] MEDS: Arformoterol 15 MCG/2 ML Neb Soln INH SCH (20:18)
[2020-06-05] MEDS: Dextrose 5%-Lactated Ringers 1,000 ML IV SCH (20:31)
[2020-06-05] MEDS: Linezolid 600 MG in Premix Bag 1 BAG IV SCH (22:10)
[2020-06-06] MEDS ORDERED: Magnesium Sulfate/Water 2 GM in Premix Bag 1 BAG IV SCH (07:00)
[2020-06-06] MEDS: Tiotropium Bromide 4 GM Inhalation Spray INH SCH (07:24)
[2020-06-06] MEDS: Potassium Chloride 10 MEQ Cap.ER PO SCH (07:26)
[2020-06-06] MEDS: Pantoprazole 40 MG Tab.CR PO SCH (07:26)
[2020-06-06] MEDS: Arformoterol 15 MCG/2 ML Neb Soln INH SCH ×2 (07:43→21:42)
[2020-06-06] MEDS: Budesonide 0.5 MG/2 ML Neb Susp INH SCH ×2 (07:43→21:41)
--- NOTE | 2020-06-06 08:25 | PN ---
DATE OF SERVICE: 06/06/2020 SUBJECTIVE: Valentin is postoperative day 1. He states his pain is controlled. He has been up ambulating. Nursing staff have been pumping the [place] shunt. He has no other concerns or questions today with the exception of he is hungry. Remainder of review of systems negative for any pertinent positives and negatives. OBJECTIVE: GENERAL: Akash Alfaro is a pleasant 74-year-old male. He is alert and orientated. VITAL SIGNS: TPR at 0334 is 97.2, 50, 16, blood pressure 99/45. HEENT: Negative. NECK: Supple. HEART: Regular rate and rhythm. LUNGS: Clear. ABDOMEN: Dressings dry and intact. Tyrell shunt on the left side was pumped. Abdomen remains to have some ascites. EXTREMITIES: Without peripheral edema. ASSESSMENT: Insertion of Tyrell peritoneovenous shunt left interior jugular vein. Postoperative diagnosis: Tense ascites. Date of procedure: 06/05/2020. Surgeon: Noe Cervantes MD. PLAN: 1. Regular diet. 2. Magnesium 2 g IV q.6 hours x72 hours. 3. Saline lock IV. 4. Discontinue SUPERVISOR TYPE PHOTOGRAPHY and continuous pulse ox. 5. Discontinue [place]. 6. Oxycodone 5 mg 1 every 4 hours p.r.n. pain. 7. Continue use of incentive spirometer and ambulation. 8. We will evaluate p.r.n. or in a.m. Bianca Marroquin PA-C /[id number] MTDD
[2020-06-06] MEDS ORDERED: Carvedilol 3.125 MG Tab PO SCH (09:00)
[2020-06-06] MEDS: Azelastine Nasal Soln 30 ML Spray Bottle NASBOTH SCH ×2 (10:00→21:58)
[2020-06-06] MEDS: Losartan 25 MG Tab PO SCH (10:03)
[2020-06-06] MEDS: Aspirin 81 MG Tab.EC PO SCH (10:03)
[2020-06-06] MEDS: Folic Acid 1 MG Tab PO SCH (10:03)
[2020-06-06] MEDS: Finasteride 5 MG Tab PO SCH (10:04)
[2020-06-06] MEDS: Furosemide 40 MG Tab PO SCH (10:04)
[2020-06-06] MEDS: Magnesium Sulfate/Water 2 GM in Premix Bag 1 BAG IV SCH ×3 (10:05→23:08)
[2020-06-06] MEDS: Carvedilol 3.125 MG Tab PO SCH ×2 (10:06→22:22)
[2020-06-06] MEDS: Minoxidil 2.5 MG Tab PO SCH ×2 (10:13→22:24)
[2020-06-06] MEDS: oxyCODONE 5 MG Tab PO PRN ×2 (10:14→16:35)
[2020-06-06] MEDS: Linezolid 600 MG in Premix Bag 1 BAG IV SCH ×2 (10:17→21:53)
[2020-06-06] MEDS: Dextrose 5%-Lactated Ringers 1,000 ML IV SCH (10:19)
[2020-06-06] MEDS ORDERED: Warfarin 5 MG Tab PO ONE (17:18)
[2020-06-06] MEDS: ALFUZOSIN 10 MG PO SCH (21:56)
[2020-06-07] MEDS: Magnesium Sulfate/Water 2 GM in Premix Bag 1 BAG IV SCH ×4 (04:50→22:29)
[2020-06-07] MEDS: Budesonide 0.5 MG/2 ML Neb Susp INH SCH ×2 (07:24→20:33)
[2020-06-07] MEDS: Arformoterol 15 MCG/2 ML Neb Soln INH SCH ×2 (07:24→20:27)
[2020-06-07] MEDS: Tiotropium Bromide 4 GM Inhalation Spray INH SCH (07:27)
[2020-06-07] MEDS: Azelastine Nasal Soln 30 ML Spray Bottle NASBOTH SCH ×2 (09:26→20:27)
[2020-06-07] MEDS: Potassium Chloride 10 MEQ Cap.ER PO SCH (09:26)
[2020-06-07] MEDS: Pantoprazole 40 MG Tab.CR PO SCH (09:27)
[2020-06-07] MEDS: Furosemide 40 MG Tab PO SCH (09:28)
[2020-06-07] MEDS: Aspirin 81 MG Tab.EC PO SCH (09:29)
[2020-06-07] MEDS: Minoxidil 2.5 MG Tab PO SCH ×2 (09:29→20:34)
[2020-06-07] MEDS: Finasteride 5 MG Tab PO SCH (09:30)
[2020-06-07] MEDS: Folic Acid 1 MG Tab PO SCH (09:32)
[2020-06-07] MEDS ORDERED: Docusate Sodium 100 MG Cap PO PRN (09:50)
--- NOTE | 2020-06-07 10:59 | PN ---
DATE OF SERVICE: 06/07/2020 SUBJECTIVE: Valentin states his pain is controlled. He has been afebrile. Pulse rate has been 39 to 45. Blood pressure has been within normal limits. He has no other questions or concerns. He did test positive for MRSA, and hemoglobin this morning was 11.1. PT 17.8 and INR is 1.65. OBJECTIVE: GENERAL: Valentin Alfaro is a pleasant 74-year-old male. He is alert and orientated. VITAL SIGNS: TPR at 0300 is 97.1, 39, 18, and blood pressure 138/74. HEENT: Negative. NECK: Supple. HEART: Regular rate and rhythm. LUNGS: Clear. ABDOMEN: [place] shunt is easily pumped, and abdomen remains distended, but not quite as firm. EXTREMITIES: Without peripheral edema. ASSESSMENT: 1. Bradycardia. 2. MRSA. 3. Insertion of [place] peritoneovenous shunt left interior jugular vein. Postoperative diagnosis: Tense ascites. Date of procedure: 06/05/2020. Noe Cervantes MD. PLAN: 1. Consult Dr. Mike for bradycardia and colonization of MRSA. 2. Check EKG now. 3. Coumadin 5 mg today. 4. Ask regarding Coumadin dose in a.m. 5. Check daily PT and INR. 6. We will evaluate p.r.n. or in the a.m. Bianca Marroquin PA-C /[id number]
[2020-06-07] MEDS: Losartan 25 MG Tab PO SCH (11:52)
--- NOTE | 2020-06-07 12:46 | PCM.CONS ---
H&P History of Present Illness - General Date of Service: 06/07/20 Admit Problem/Dx: Admission Diagnosis/Problem Admission Diagnosis/Problem Shunt malfunction Source of Information: Patient, Family, Provider, RN Notes Reviewed History Limitations: Reports: No Limitations - History of Present Illness Initial Comments - Free Text/Narative: Mr. Alfaro a 74-year-old gentleman who I been asked to see by Dr. Cervantes concerning bradycardia and MRSA colonization. Mr. Alfaro has a known history of atrial fibrillation and associated bradycardia. During hospitalization rates have been noted intermittently into the 30s and during the night into the upper 20s. Thus far he has been noted to have appropriate increase in heart rate with activity and denies, headedness or increase in shortness of breath. There has been some decrease in his exercise tolerance but he relates this to the increased ascites that he has been experiencing over the past few weeks. He is actually feeling somewhat better since his second shunt was placed. He reports that he was checked for MRSA prior to knee replacement surgery few years ago and was found to be positive. He has never had active MRSA infection. 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 - Related Data Allergies/Adverse Reactions: Allergies Allergy/AdvReac Type Severity Reaction Status Date / Time amlodipine Allergy Cannot Verified 06/05/20 09:44 Remember hydralazine Allergy Hives Verified 06/05/20 09:44 hydromorphone Allergy Other Verified 06/05/20 09:44 isosorbide [From Imdur] Allergy Rash Verified 06/05/20 09:44 ketoconazole [From Nizoral] Allergy Facial Verified 06/05/20 09:44 Swelling mupirocin [From Bactroban] Allergy Swelling Verified 06/05/20 09:44 mupirocin calcium Allergy Swelling Verified 06/05/20 09:44 [From Bactroban] procainamide [Procainamide] Allergy Fever Verified 06/05/20 09:44 Sulfa (Sulfonamide Allergy Rash Verified 06/05/20 09:44 Antibiotics) lovastatin [From Mevacor] AdvReac Leg Cramps Verified 06/05/20 09:44 Home Medications: Home Meds Rosuvastatin Calcium [Crestor] 15 mg PO BEDTIME 03/25/14 [History] Nitroglycerin [Nitrostat] 0.4 mg SL ASDIRECTED 11/29/14 [History] Alfuzosin [Uroxatral] 10 mg PO DAILY 02/26/15 [History] Folic Acid 400 mcg PO DAILY 02/26/15 [History] Finasteride [Proscar] 5 mg PO DAILY 11/30/15 [History] valACYclovir [Valtrex] 500 mg PO BID 12/03/15 [History] Glucosamine/D3/Boswellia Lili [Glucosamine Complex Tablet] 1 each PO BID 03/19/17 [History] Pantoprazole Sodium [Protonix] 40 mg PO DAILY 03/19/17 [History] carvediloL [Coreg] 3.125 mg PO BID 03/19/17 [History] Azelastine [Astelin Nasal Soln] 2 spray INH BID 02/06/18 [History] Warfarin [Coumadin] 5 mg PO DAILY 05/03/18 [History] Furosemide 40 mg PO DAILY 01/10/19 [History] Losartan Potassium 25 mg PO BID 01/10/19 [History] Potassium Chloride [Klor-Con 10] 10 meq PO DAILY 01/10/19 [History] Tiotropium [Spiriva HandiHaler] 1 puff INH DAILY 01/13/19 [History] Aspirin [Halfprin] 81 mg PO DAILY 02/16/20 [History] Albuterol Sulfate [Proair Hfa] 2 puff INH Q6H PRN 02/20/20 [History] Arformoterol [Brovana] 2 ml INH BID 04/11/20 [History] Budesonide [Pulmicort] 0.5 mg INH BID 04/11/20 [History] minoxidiL [Minoxidil] 2.5 mg PO BID 04/11/20 [History] Past Medical History HEENT History: Reports: Allergic Rhinitis, Hard of Hearing, Impaired Vision Other HEENT History: glasses for reading Cardiovascular History: Reports: Afib, Arrhythmia, High Cholesterol, Hypertension, Stents Respiratory History: Reports: COPD, Sleep Apnea, Other (See Below) Other Respiratory History: pneumonia in Feb Gastrointestinal History: Reports: Cirrhosis, Colon Polyp, GERD, Other (See Below) Other Gastrointestinal History: liver problem with ascities Genitourinary History: Reports: Prostate Disorder Musculoskeletal History: Reports: Arthritis, Other (See Below) Other Musculoskeletal History: arthritis right knee Endocrine/Metabolic History: Reports: Obesity/BMI 30+ Hematologic History: Reports: Anesthesia Reaction Other Hematologic History: elevated blood pressure with anesthesia many years ago Dermatologic History: Reports: Cellulitis, Psoriasis Other Dermatologic History: cellulitis on cheek 01/14 resolved - Infectious Disease History Infectious Disease History: Reports: MRSA 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 dorcas shunt with revision Male Surgical History: Reports: Cystectomy Musculoskeletal Surgical History: Reports: Arthroscopic Knee, Knee Replacement, Other (See Below) Other Musculoskeletal Surgeries/Procedures:: R TKA 01/27/2018 Social & Family History - Family History Family Medical History: Noncontributory - Tobacco Use Smoking Status *Q: Former Smoker Years of Tobacco use: 25 Used Tobacco, but Quit: Yes Month/Year Tobacco Last Used: quit 35 yrs ago - Caffeine Use Caffeine Use: Reports: Coffee - Recreational Drug Use Recreational Drug Use: No H&P Review of Systems - Review of Systems: Review Of Systems: See Below General: Reports: No Symptoms HEENT: Reports: No Symptoms Pulmonary: Reports: Shortness of Breath. Denies: Wheezing, Pleuritic Chest Pain, Cough, Sputum, Hemoptysis Cardiovascular: Reports: Dyspnea on Exertion. Denies: Chest Pain, Palpitations, Orthopnea, PND, Edema, Lightheadedness Gastrointestinal: Reports: Distension. Denies: Abdominal Pain, Black Stool, Bloody Stool, Nausea, Vomiting Genitourinary: Reports: No Symptoms Musculoskeletal: Reports: No Symptoms Exam - Exam Exam: See Below - Vital Signs Vital Signs: Last Vital Signs Temp 97.2 F 06/07/20 11:36 Pulse 60 06/07/20 11:36 Resp 16 06/07/20 11:36 BP 96/41 L 06/07/20 11:52 Pulse Ox 94 L 06/07/20 11:36 Weight: 226 lb 15.983 oz - Exam General: Alert, Oriented, Cooperative, Mild Distress Neck: Supple, Trachea Midline, +2 Carotid Pulse wo Bruit Lungs: Clear to Auscultation, Normal Respiratory Effort Cardiovascular: Normal S1, Normal S2, Irregular Rhythm, Bradycardia. No: Systolic Murmur, Diastolic Murmur GI/Abdominal Exam: Soft, Non-Tender, No Organomegaly, No Distention Extremities: Non-Tender, No Pedal Edema Skin: Warm, Dry - Patient Data Lab Results Last 24 hrs: Laboratory Results - last 24 hr 06/07/20 06/07/20 06/07/20 Range/Units 04:00 04:00 04:00 WBC 6.6 (4.5-11.0) K/uL RBC 3.33 L (4.30-5.90) M/uL Hgb 11.1 L (12.0-15.0) g/dL Hct 31.6 L (40.0-54.0) % MCV 95 (80-98) fL MCH 33 H (27-31) pg MCHC 35 (32-36) % Plt Count 91 L (150-400) K/uL Neut % (Auto) 78 H (36-66) % Lymph % (Auto) 10 L (24-44) % [place] % (Auto) 10 H (2-6) % Eos % (Auto) 1 L (2-4) % Baso % (Auto) 0 (0-1) % PT 17.8 H (9.5-12.0) sec INR 1.65 H (0.80-1.20) APTT 32.0 (27.0-36.0) sec Sodium 136 L (140-148) mmol/L Potassium 4.5 (3.6-5.2) mmol/L Chloride 105 (100-108) mmol/L Carbon Dioxide 24 (21-32) mmol/L Anion Gap 11.5 (5.0-14.0) mmol/L BUN 11 (7-18) mg/dL Creatinine 0.9 (0.8-1.3) mg/dL Est Cr Clr Drug Dosing 69.76 mL/min Estimated GFR (MDRD) > 60 (>60) Glucose 100 (74-106) mg/dL Calcium 7.6 L (8.5-10.1) mg/dL Phosphorus 2.9 (2.5-4.9) mg/dL Magnesium 2.2 (1.8-2.4) mg/dL Total Bilirubin 0.8 (0.2-1.0) mg/dL AST 25 (15-37) U/L ALT 12 (12-78) U/L Alkaline Phosphatase 79 (46-116) U/L Total Protein 6.3 L (6.4-8.2) g/dL Albumin 2.4 L (3.4-5.0) g/dL Globulin 3.9 H (2.3-3.5) g/dL Albumin/Globulin Ratio 0.6 L (1.2-2.2) Result Diagrams: 06/07/20 04:00 06/07/20 04:00 [place]tan Results Last 24 hrs: Microbiology 06/05/20 10:23 MRSA Culture - Final Nares, Unspecified (Mrsa) Staphylococcus Aureus Sepsis Event Note - Evaluation Sepsis Screening Result: No Definite Risk - Focused Exam Vital Signs: Vital Signs Temp Pulse Pulse Resp BP BP Pulse Ox 06/07/20 11:52 96/41 L 06/07/20 11:36 97.2 F 60 16 96/41 L 94 L 06/07/20 09:29 103/56 L 06/07/20 08:15 97.2 F 42 L 16 103/56 L 93 L 06/07/20 07:28 45 L 06/07/20 07:24 94 L 06/07/20 03:00 97.1 F 39 L 18 138/74 97 Pulse Ox 06/07/20 11:52 06/07/20 11:36 06/07/20 09:29 06/07/20 08:15 06/07/20 07:28 96 06/07/20 07:24 06/07/20 03:00 Consult PN Assessment/Plan Procedures: Procedures ABD PARACENTESIS W/IMAGING (05/03/20) AIRWAY INHALATION TREATMENT (02/20/20) ASSAY OF CK (CPK) (01/30/16) ASSAY OF CREATININE (06/10/19) ASSAY OF MAGNESIUM (02/20/20) ASSAY OF NATRIURETIC PEPTIDE (02/20/20) ASSAY OF PHOSPHORUS (02/20/20) ASSAY OF TROPONIN QUANT (02/24/20) BLOOD CULTURE FOR BACTERIA (01/30/18) BLOOD TYPING SEROLOGIC ABO (02/20/20) BLOOD TYPING SEROLOGIC RH(D) (02/20/20) C-REACTIVE PROTEIN (01/30/18) CARDIAC REHAB/MONITOR (05/26/18) CHEST X-RAY 1 VIEW FRONTAL (01/30/16) COLONOSCOPY AND BIOPSY (02/28/15) COMPATIBILITY TEST ANTIGLOB (02/20/20) COMPATIBILITY TEST SPIN (02/20/20) COMPLETE CBC AUTOMATED (02/24/20) COMPLETE CBC W/AUTO DIFF WBC (02/20/20) COMPREHEN METABOLIC PANEL (02/20/20) CT ABD & PELV W/CONTRAST (01/30/20) CT HEAD/BRAIN W/O DYE (02/24/20) CT LOWER EXTREMITY W/O DYE (04/03/14) CT THORAX W/DYE (11/08/15) CULTURE OTHR SPECIMN AEROBIC (01/11/18) CULTURE SCREEN ONLY (01/13/19) EGD BIOPSY SINGLE/MULTIPLE (01/13/19) ELECTROCARDIOGRAM REPORT (02/20/20) ELECTROCARDIOGRAM TRACING (02/24/20) EMERGENCY DEPT VISIT (02/24/20) EMERGENCY DEPT VISIT (08/19/14) EMERGENCY DEPT VISIT (08/19/14) EMERGENCY DEPT VISIT (03/25/14) EXTRACRANIAL BILAT STUDY (04/01/19) EXTREMITY STUDY (02/10/18) FLUOROSCOPY <1 HR PHYS/QHP (02/20/20) GAIT TRAINING THERAPY (01/30/18) HOT OR COLD PACKS THERAPY (03/10/18) INFLUENZA ASSAY W/OPTIC (01/30/18) MANUAL THERAPY 1/> REGIONS (03/10/18) MEASURE BLOOD OXYGEN LEVEL (02/20/20) METABOLIC PANEL TOTAL CA (02/24/20) MRI BRAIN STEM W/O & W/DYE (05/12/19) MRI BRAIN STEM W/O DYE (01/05/14) MRI CHEST SPINE W/O DYE (05/07/20) MRI LUMBAR SPINE W/O DYE (05/07/20) MRI NECK SPINE W/O DYE (01/05/14) OT EVAL LOW COMPLEX 30 MIN (01/30/18) POSTOP FOLLOW-UP VISIT (02/18/18) PROTHROMBIN TIME (05/08/20) PT EVAL LOW COMPLEX 20 MIN (02/18/18) PT EVAL MOD COMPLEX 30 MIN (01/30/18) RBC ANTIBODY SCREEN (02/20/20) REVISE ABDOMEN-VENOUS SHUNT (05/08/20) ROUTINE VENIPUNCTURE (05/08/20) SELF CARE MNGMENT TRAINING (01/30/18) THER/PROPH/DIAG INJ SC/IM (03/25/14) THERAPEUTIC ACTIVITIES (01/30/18) THERAPEUTIC EXERCISES (03/10/18) THROMBOLYTIC VENOUS THERAPY (05/08/20) THROMBOPLASTIN TIME PARTIAL (02/20/20) TISSUE EXAM BY PATHOLOGIST (12/03/15) TOTAL KNEE ARTHROPLASTY (01/30/18) TTE W/DOPPLER COMPLETE (03/30/18) URINALYSIS AUTO W/SCOPE (01/30/18) US EXAM ABDO BACK WALL COMP (07/27/15) X-RAY EXAM ABDOMEN 2 VIEWS (04/12/20) X-RAY EXAM CHEST 1 VIEW (01/30/18) X-RAY EXAM CHEST 2 VIEWS (02/06/18) X-RAY EXAM OF KNEE 1 OR 2 (05/03/18) X-RAY EXAM OF KNEE 3 (03/25/14) Problem List Initiated/Reviewed/Updated: Yes Plan: ASSESSMENT AND RECOMMENDATIONS ATRIAL FIBRILLATION WITH SLOW VENTRICULAR RESPONSE-this is a chronic problem for him and his been present for some time. He is on rate slowing medication with Coreg. Despite relatively low rates I am unable to elicit significant symptoms from him associated with the bradycardia. -Assess heart rate response with activity -Continue cardiac monitoring -Hold Coreg 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 Current recommendations for this would be no interventions as it is not likely to clear the colonization and he currently does not have an active infection. -No further interventions or management required at this time Requesting Provider: ANAMIKA Date Consult Requested: 06/07/20 Reason for Consult: Cardiac, MRSA colonization Patient History Reviewed: Yes Admission H&P Reviewed: Yes Notified Requestor: Yes
[2020-06-07] MEDS ORDERED: Warfarin 5 MG Tab PO ONE (13:00)
[2020-06-07] MEDS: ALFUZOSIN 10 MG PO SCH (20:27)
[2020-06-07] MEDS: oxyCODONE 5 MG Tab PO PRN (20:33)
[2020-06-07] MEDS ORDERED: Bisacodyl 5 MG Tab PO ONE (21:30)
[2020-06-08] MEDS: Magnesium Sulfate/Water 2 GM in Premix Bag 1 BAG IV SCH ×4 (02:59→21:00)
[2020-06-08] MEDS: oxyCODONE 5 MG Tab PO PRN ×2 (03:06→16:45)
[2020-06-08] MEDS: Arformoterol 15 MCG/2 ML Neb Soln INH SCH ×2 (07:06→20:30)
[2020-06-08] MEDS: Budesonide 0.5 MG/2 ML Neb Susp INH SCH ×2 (07:06→20:40)
[2020-06-08] MEDS: Tiotropium Bromide 4 GM Inhalation Spray INH SCH (07:06)
[2020-06-08] MEDS: Pantoprazole 40 MG Tab.CR PO SCH (07:44)
[2020-06-08] MEDS: Potassium Chloride 10 MEQ Cap.ER PO SCH (07:44)
[2020-06-08] MEDS ORDERED: Non-Formulary Medication 1 Each (Warfarin [Coumadin] 5 MG) PO SCH (09:00)
[2020-06-08] MEDS ORDERED: Bisacodyl 5 MG Tab PO PRN (09:14)
[2020-06-08] MEDS: Azelastine Nasal Soln 30 ML Spray Bottle NASBOTH SCH ×2 (09:50→20:29)
[2020-06-08] MEDS: Folic Acid 1 MG Tab PO SCH (09:50)
[2020-06-08] MEDS: Furosemide 40 MG Tab PO SCH (09:50)
[2020-06-08] MEDS: Aspirin 81 MG Tab.EC PO SCH (09:50)
[2020-06-08] MEDS: Furosemide 20 MG/2 ML VIAL IVPUSH SCH ×2 (09:50→20:32)
[2020-06-08] MEDS: Potassium Chloride 20 MEQ Tab.ER PO SCH ×2 (09:51→16:49)
[2020-06-08] MEDS: Finasteride 5 MG Tab PO SCH (09:51)
[2020-06-08] MEDS: Losartan 25 MG Tab PO SCH (11:56)
[2020-06-08] MEDS: Minoxidil 2.5 MG Tab PO SCH ×2 (11:56→20:41)
--- NOTE | 2020-06-08 12:04 | PCM.CONSN ---
- General Info Date of Service: 06/08/20 Subjective Update: Mr. Alfaro has continued to experience episodes of extreme bradycardia with heart rates into the upper 20s. He has been off of the Coreg now for a period of 24 hours. Monitoring during ambulation shows a very poor heart rate response to activity, indicating that bradycardia is likely contributing to his poor exercise tolerance and shortness of breath. Functional Status: Reports: Tolerating Diet, Ambulating, Urinating - Review of Systems Pulmonary: Reports: Shortness of Breath. Denies: Pleuritic Chest Pain, Cough, Sputum, Hemoptysis, Wheezing Cardiovascular: Reports: Dyspnea on Exertion, Edema. Denies: Chest Pain, Palpitations, Orthopnea, PND, Lightheadedness Gastrointestinal: Reports: No Symptoms - Patient Data Vitals - Most Recent: Last Vital Signs Temp 97.9 F 06/08/20 11:30 Pulse 58 L 06/08/20 11:30 Resp 16 06/08/20 11:30 BP 98/39 L 06/08/20 11:30 Pulse Ox 93 L 06/08/20 11:30 Weight - Most Recent: 235 lb 9.6 oz I&O - Last 24 Hours: Intake & Output 06/07/20 06/08/20 06/08/20 22:59 06:59 14:59 Intake Total 240 500 600 Output Total 500 500 Balance -260 0 600 Lab Results Last 24 Hours: Laboratory Results - last 24 hr 06/08/20 Range/Units 04:25 PT 18.6 H (9.5-12.0) sec INR 1.72 H (0.80-1.20) Med Orders - Current: Current Medications Albuterol (Proventil Neb Soln) 2.5 mg INH Q4H PRN PRN Reason: Shortness of Breath Last Admin: 06/08/20 03:40 Dose: 2.5 mg Documented by: Arformoterol Tartrate (Brovana) 15 mcg INH BIDRT [facility] Last Admin: 06/08/20 07:06 Dose: 15 mcg Documented by: Aspirin (Halfprin) 81 mg PO DAILY [facility] Last Admin: 06/08/20 09:50 Dose: 81 mg Documented by: Azelastine HCl (Astelin Nasal Soln) 0 ml NASBOTH BID [facility] Last Admin: 06/08/20 09:50 Dose: 2 sprays Documented by: Bisacodyl (Dulcolax) 10 mg PO BID PRN PRN Reason: Constipation Last Admin: 06/08/20 10:10 Dose: 10 mg Documented by: Budesonide (Pulmicort) 0.5 mg INH BIDRT [facility] Last Admin: 06/08/20 07:06 Dose: 0.5 mg Documented by: Docusate Sodium (Colace) 100 mg PO DAILY PRN PRN Reason: Constipation Last Admin: 06/07/20 11:53 Dose: 100 mg Documented by: Finasteride (Proscar) 5 mg PO DAILY [facility] Last Admin: 06/08/20 09:51 Dose: 5 mg Documented by: Folic Acid (Folic Acid) 0.5 mg PO DAILY [facility] Last Admin: 06/08/20 09:50 Dose: 0.5 mg Documented by: Furosemide (Lasix) 20 mg IVPUSH BID [facility] Stop: 06/08/20 21:01 Last Admin: 06/08/20 09:50 Dose: 20 mg Documented by: Magnesium Sulfate 2 gm/ Premix 50 mls @ 25 mls/hr IV Q6H [facility] Stop: 06/09/20 05:59 Last Admin: 06/08/20 09:55 Dose: 25 mls/hr Documented by: Losartan Potassium (Cozaar) 25 mg PO DAILY [facility] Last Admin: 06/08/20 11:56 Dose: Not Given Documented by: Minoxidil (Loniten) 2.5 mg PO BID [facility] Last Admin: 06/08/20 11:56 Dose: Not Given Documented by: Nitroglycerin (Nitrostat) 0.4 mg SL ASDIRECTED PRN PRN Reason: Chest Pain Ondansetron HCl (Zofran) 4 mg IVPUSH Q4H PRN PRN Reason: Nausea Oxycodone HCl (Oxycodone) 5 mg PO Q4H PRN PRN Reason: Pain Last Admin: 06/08/20 03:06 Dose: 5 mg Documented by: Pantoprazole Sodium (Protonix) 40 mg PO ACBREAKFAST [facility] Last Admin: 06/08/20 07:44 Dose: 40 mg Documented by: Alfuzosin 10mg (Ptom) 0 each PO BEDTIME [facility] Last Admin: 06/07/20 20:27 Dose: 1 each Documented by: Potassium Chloride (Potassium Chloride) 10 meq PO DAILY@0800 [facility] Last Admin: 06/08/20 07:44 Dose: 10 meq Documented by: Potassium Chloride (Klor-Con M20) 20 meq PO BIDMEALS [facility] Last Admin: 06/08/20 09:51 Dose: 20 meq Documented by: Tiotropium Olla (Spiriva Respimat) 0 gm INH DAILY@0700 [facility] Last Admin: 06/08/20 07:06 Dose: 2 gm Documented by: Discontinued Medications Albuterol (Proventil Neb Soln) 2.5 mg INH ONETIME ONE Stop: 06/05/20 09:46 Last Admin: 06/05/20 16:47 Dose: Not Given Documented by: Arformoterol Tartrate (Brovana) 15 mcg NEB ONETIME ONE Stop: 06/05/20 10:01 Last Admin: 06/05/20 16:47 Dose: Not Given Documented by: Bisacodyl (Dulcolax) 15 mg PO ONETIME ONE Stop: 06/07/20 21:31 Last Admin: 06/08/20 02:58 Dose: Not Given Documented by: Budesonide (Pulmicort) 0.5 mg NEB ONETIME ONE Stop: 06/05/20 10:01 Last Admin: 06/05/20 16:47 Dose: Not Given Documented by: Carvedilol (Coreg) 3.125 mg PO DAILY [facility] Last Admin: 06/06/20 10:00 Dose: 3.125 mg Documented by: Carvedilol (Coreg) 3.125 mg PO BID [facility] Last Admin: 06/06/20 22:22 Dose: Not Given Documented by: Dexamethasone (Dexamethasone) Confirm Administered Dose 4 mg .ROUTE .STK-MED ONE Stop: 06/05/20 07:24 Fentanyl (Sublimaze) Confirm Administered Dose 250 mcg .ROUTE .STK-MED ONE Stop: 06/05/20 07:25 Furosemide (Lasix) 20 mg IVPUSH Q6H [facility] Stop: 06/05/20 22:01 Last Admin: 06/05/20 22:08 Dose: 20 mg Documented by: Furosemide (Lasix) 40 mg PO DAILY [facility] Last Admin: 06/08/20 09:50 Dose: 40 mg Documented by: Glycopyrrolate (Robinul) Confirm Administered Dose 1 mg .ROUTE .STK-MED ONE Stop: 06/05/20 07:24 Heparin Sodium (Porcine) (Heparin Lock Flush 100 Units/Ml) Confirm Administered Dose 1,000 units .ROUTE .STK-MED ONE Stop: 06/05/20 06:46 Last Admin: 06/05/20 13:00 Dose: 1,000 units Documented by: Dextrose/Lactated Ringer's (Dextrose 5%-Lactated Ringers) 1,000 mls @ 100 mls/hr IV ASDIRECTED [facility] Last Admin: 06/05/20 09:30 Dose: 100 mls/hr Documented by: Linezolid 600 mg/ Premix 300 mls @ 300 mls/hr IV ONETIME ONE Stop: 06/05/20 11:44 Last Admin: 06/05/20 12:40 Dose: 300 mls/hr Documented by: Dextrose/Lactated Ringer's (Dextrose 5%-Lactated Ringers) 1,000 mls @ 80 mls/hr IV ASDIRECTED [facility] Last Admin: 06/06/20 10:19 Dose: 80 mls/hr Documented by: Linezolid 600 mg/ Premix 300 mls @ 300 mls/hr IV Q12H [facility] Stop: 06/06/20 22:59 Last Admin: 06/06/20 21:53 Dose: 300 mls/hr Documented by: Magnesium Sulfate 2 gm/ Premix 50 mls @ 25 mls/hr IV Q6H [facility] Stop: 06/09/20 02:59 Last Admin: 06/06/20 07:28 Dose: Not Given Documented by: Linezolid (Zyvox) 600 mg IRR .STK-MED ONE Stop: 06/05/20 13:30 Last Admin: 06/05/20 13:29 Dose: 600 mg Documented by: Meropenem (Merrem) Confirm Administered Dose 500 mg .ROUTE .STK-MED ONE Stop: 06/05/20 06:46 Morphine Sulfate (Morphine Information Services Consultant 150 Mg In 30 Ml) 0 mg IV ASDIRECTED PRN; Protocol PRN Reason: Pain Last Admin: 06/05/20 12:15 Dose: 1 mg Documented by: Naloxone HCl (Narcan) 0.1 mg IV ASDIRECTED PRN PRN Reason: decreased respiratory rate Neostigmine Methylsulfate (Neostigmine) Confirm Administered Dose 5 mg .ROUTE .STK-MED ONE Stop: 06/05/20 07:24 Ondansetron HCl (Zofran) Confirm Administered Dose 4 mg .ROUTE .STK-MED ONE Stop: 06/05/20 07:24 Propofol (Diprivan 20 Ml) Confirm Administered Dose 200 mg .ROUTE .STK-MED ONE Stop: 06/05/20 07:24 Rocuronium Olla (Zemuron) Confirm Administered Dose 50 mg .ROUTE .STK-MED ONE Stop: 06/05/20 07:24 Succinylcholine Chloride (Quelicin) Confirm Administered Dose 200 mg .ROUTE .STK-MED ONE Stop: 06/05/20 07:24 Warfarin Sodium (Coumadin) 5 mg PO ONETIME ONE Stop: 06/06/20 17:19 Last Admin: 06/06/20 17:53 Dose: 5 mg Documented by: Warfarin Sodium (Coumadin) 5 mg PO ONETIME ONE Stop: 06/07/20 13:01 Last Admin: 06/07/20 13:15 Dose: 5 mg Documented by: Warfarin Sodium (Coumadin) 5 mg PO DAILY@1300 [facility] - Exam Quality Assessment: DVT Prophylaxis General: Alert, Oriented, Cooperative, Mild Distress Lungs: Clear to Auscultation, Normal Respiratory Effort Cardiovascular: Irregular Rhythm, Bradycardia. No: Murmurs GI/Abdominal Exam: Soft, No Organomegaly, Distended, Tender. No: Guarding, Rigid, Rebound Extremities: Non-Tender, Pedal Edema Sepsis Event Note - Evaluation Sepsis Screening Result: No Definite Risk - Focused Exam Vital Signs: Vital Signs Temp Temp Pulse Resp BP Pulse Ox 06/08/20 11:30 97.9 F 58 L 16 98/39 L 93 L 06/08/20 11:21 45 L 06/08/20 08:35 97.6 F 61 16 116/49 L 95 06/08/20 07:54 95 06/08/20 07:08 47 L 06/08/20 02:59 97.6 F 51 L 18 113/62 97 06/08/20 01:00 96 Consult PN Assessment/Plan Procedures: Procedures ABD PARACENTESIS W/IMAGING (05/03/20) AIRWAY INHALATION TREATMENT (02/20/20) ASSAY OF CK (CPK) (01/30/16) ASSAY OF CREATININE (06/10/19) ASSAY OF MAGNESIUM (02/20/20) ASSAY OF NATRIURETIC PEPTIDE (02/20/20) ASSAY OF PHOSPHORUS (02/20/20) ASSAY OF TROPONIN QUANT (02/24/20) BLOOD CULTURE FOR BACTERIA (01/30/18) BLOOD TYPING SEROLOGIC ABO (02/20/20) BLOOD TYPING SEROLOGIC RH(D) (02/20/20) C-REACTIVE PROTEIN (01/30/18) CARDIAC REHAB/MONITOR (05/26/18) CHEST X-RAY 1 VIEW FRONTAL (01/30/16) COLONOSCOPY AND BIOPSY (02/28/15) COMPATIBILITY TEST ANTIGLOB (02/20/20) COMPATIBILITY TEST SPIN (02/20/20) COMPLETE CBC AUTOMATED (02/24/20) COMPLETE CBC W/AUTO DIFF WBC (02/20/20) COMPREHEN METABOLIC PANEL (02/20/20) CT ABD & PELV W/CONTRAST (01/30/20) CT HEAD/BRAIN W/O DYE (02/24/20) CT LOWER EXTREMITY W/O DYE (04/03/14) CT THORAX W/DYE (11/08/15) CULTURE OTHR SPECIMN AEROBIC (01/11/18) CULTURE SCREEN ONLY (01/13/19) EGD BIOPSY SINGLE/MULTIPLE (01/13/19) ELECTROCARDIOGRAM REPORT (02/20/20) ELECTROCARDIOGRAM TRACING (02/24/20) EMERGENCY DEPT VISIT (02/24/20) EMERGENCY DEPT VISIT (08/19/14) EMERGENCY DEPT VISIT (08/19/14) EMERGENCY DEPT VISIT (03/25/14) EXTRACRANIAL BILAT STUDY (04/01/19) EXTREMITY STUDY (02/10/18) FLUOROSCOPY <1 HR PHYS/QHP (02/20/20) GAIT TRAINING THERAPY (01/30/18) HOT OR COLD PACKS THERAPY (03/10/18) INFLUENZA ASSAY W/OPTIC (01/30/18) MANUAL THERAPY 1/> REGIONS (03/10/18) MEASURE BLOOD OXYGEN LEVEL (02/20/20) METABOLIC PANEL TOTAL CA (02/24/20) MRI BRAIN STEM W/O & W/DYE (05/12/19) MRI BRAIN STEM W/O DYE (01/05/14) MRI CHEST SPINE W/O DYE (05/07/20) MRI LUMBAR SPINE W/O DYE (05/07/20) MRI NECK SPINE W/O DYE (01/05/14) OT EVAL LOW COMPLEX 30 MIN (01/30/18) POSTOP FOLLOW-UP VISIT (02/18/18) PROTHROMBIN TIME (05/08/20) PT EVAL LOW COMPLEX 20 MIN (02/18/18) PT EVAL MOD COMPLEX 30 MIN (01/30/18) RBC ANTIBODY SCREEN (02/20/20) REVISE ABDOMEN-VENOUS SHUNT (05/08/20) ROUTINE VENIPUNCTURE (05/08/20) SELF CARE MNGMENT TRAINING (01/30/18) THER/PROPH/DIAG INJ SC/IM (03/25/14) THERAPEUTIC ACTIVITIES (01/30/18) THERAPEUTIC EXERCISES (03/10/18) THROMBOLYTIC VENOUS THERAPY (05/08/20) THROMBOPLASTIN TIME PARTIAL (02/20/20) TISSUE EXAM BY PATHOLOGIST (12/03/15) TOTAL KNEE ARTHROPLASTY (01/30/18) TTE W/DOPPLER COMPLETE (03/30/18) URINALYSIS AUTO W/SCOPE (01/30/18) US EXAM ABDO BACK WALL COMP (07/27/15) X-RAY EXAM ABDOMEN 2 VIEWS (04/12/20) X-RAY EXAM CHEST 1 VIEW (01/30/18) X-RAY EXAM CHEST 2 VIEWS (02/06/18) X-RAY EXAM OF KNEE 1 OR 2 (05/03/18) X-RAY EXAM OF KNEE 3 (03/25/14) Problem List Initiated/Reviewed/Updated: Yes My Orders Last 24 Hours: My Active Orders 06/09/20 Breakfast NPO After Midnight [Nothing per Oral After Midnight Diet] [DIET] Plan: ASSESSMENT AND RECOMMENDATIONS ATRIAL FIBRILLATION WITH SLOW VENTRICULAR RESPONSE-this is a chronic problem for him and his been present for some time. He is on rate slowing medication with Coreg. It has now been held for 24 hours and he continues to experience episodes of extreme bradycardia with heart rates into the upper 20s. Monitoring over the last 24 hours with activity shows very poor heart rate response to activity, current shortness of breath is at least partially related to ongoing persistent bradycardia -Single-chamber permanent pacemaker placement in a.m. -N.p.o. after midnight -Hold Coreg 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 Current recommendations for this would be no interventions as it is not likely to clear the colonization and he currently does not have an active infection. -No further interventions or management required at this time
[2020-06-08] MEDS ORDERED: Warfarin 5 MG Tab PO SCH (13:00)
--- NOTE | 2020-06-08 14:43 | PN ---
DATE OF SERVICE: 06/08/2020 SUBJECTIVE: Akash has continued to have issues with bradycardia. He has seen Ty Mike MD. Tyrell shunt has been working well. He has been pumping it frequently. REVIEW OF SYSTEMS: Remainder of review of systems negative for any pertinent positives or negatives. OBJECTIVE: GENERAL: Valentin Alfaro is a pleasant 74-year-old male. He is alert and orientated. VITAL SIGNS: TPR 97.6, 61, 16, and blood pressure 116/49. HEENT: Negative. NECK: Dressing is removed. Incision looks good. Sutures intact. HEART: Regular rate and rhythm. ABDOMEN: Negative. Dressing removed. Left mid quadrant shunt intact, easily pumped. Abdomen remains to be distended but soft. EXTREMITIES: Reveal 1+ peripheral edema. ASSESSMENT: 1. Bradycardia. 2. Methicillin-resistant Staphylococcus aureus. 3. Insertion of [place] percutaneous shunt, left anterior jugular vein for tense ascites. Date of procedure 06/05/2020. Noe Cervantes MD. PLAN: 1. Lasix 20 mg IV b.i.d. today in addition to his oral Lasix. 2. Coumadin 5 mg p.o. daily. Continue daily PT and INR. 3. Dulcolax tablets 10 mg p.o. b.i.d. scheduled for constipation and to discontinue when the patient has bowel movement. Continue Colace b.i.d. for bowels. 4. We will evaluate p.r.n. or in a.m. Bianca Marroquin PA-C /[id number]
[2020-06-08] MEDS ORDERED: Dextrose 5%-Lactated Ringers 1,000 ML IV SCH (20:00)
[2020-06-08] MEDS: Bisacodyl 5 MG Tab PO SCH (20:31)
[2020-06-08] MEDS: ALFUZOSIN 10 MG PO SCH (20:33)
[2020-06-09] MEDS: Magnesium Sulfate/Water 2 GM in Premix Bag 1 BAG IV SCH (04:00)
[2020-06-09] MEDS ORDERED: Bupivacaine 0.5% 50 ML MDV ONE (06:10)
[2020-06-09] MEDS ORDERED: Lidocaine 1% with EPINEPHrine 1:100,000 50 ML MDV ONE (06:10)
[2020-06-09] MEDS ORDERED: Midazolam 1 MG/ML 2 ML SDV ONE (07:15)
[2020-06-09] MEDS: Arformoterol 15 MCG/2 ML Neb Soln INH SCH ×2 (07:15→20:37)
[2020-06-09] MEDS: Budesonide 0.5 MG/2 ML Neb Susp INH SCH ×2 (07:15→20:45)
[2020-06-09] MEDS: Tiotropium Bromide 4 GM Inhalation Spray INH SCH (07:15)
[2020-06-09] MEDS ORDERED: fentaNYL 100 MCG/2 ML SDV ONE (07:15)
[2020-06-09] MEDS ORDERED: Propofol 200 MG/20 ML SDV ONE (07:16)
[2020-06-09] MEDS ORDERED: Linezolid 600 MG in Premix Bag 1 BAG IV ONE (08:30)
[2020-06-09] MEDS: Pantoprazole 40 MG Tab.CR PO SCH (08:59)
[2020-06-09] MEDS: Potassium Chloride 20 MEQ Tab.ER PO SCH ×2 (08:59→16:53)
[2020-06-09] MEDS ORDERED: Lactated Ringers 1,000 ML ONE (09:59)
[2020-06-09] MEDS: Azelastine Nasal Soln 30 ML Spray Bottle NASBOTH SCH ×2 (11:25→20:35)
[2020-06-09] MEDS: Minoxidil 2.5 MG Tab PO SCH ×2 (11:26→20:37)
[2020-06-09] MEDS: Losartan 25 MG Tab PO SCH (11:26)
[2020-06-09] MEDS ORDERED: Sodium Chloride 0.9% 10 ML Syringe IV PRN (11:27)
[2020-06-09] MEDS: Aspirin 81 MG Tab.EC PO SCH (11:30)
[2020-06-09] MEDS: Folic Acid 1 MG Tab PO SCH (11:31)
[2020-06-09] MEDS: Finasteride 5 MG Tab PO SCH (11:31)
[2020-06-09] MEDS: Bisacodyl 5 MG Tab PO SCH ×2 (11:31→20:37)
--- NOTE | 2020-06-09 12:56 | PCM.CONSN ---
- General Info Date of Service: 06/09/20 Subjective Update: Mr. Alfaro is doing well status post pacemaker placement this morning. Still waking up from anesthesia, somewhat groggy and unable to provide meaningful history concerning recent symptoms or review of systems. - Patient Data Vitals - Most Recent: Last Vital Signs Temp 97 F 06/09/20 11:51 Pulse 70 06/09/20 12:35 Resp 18 06/09/20 12:35 BP 166/80 H 06/09/20 12:35 Pulse Ox 94 L 06/09/20 12:38 Weight - Most Recent: 234 lb 6.4 oz I&O - Last 24 Hours: Intake & Output 06/08/20 06/09/20 06/09/20 22:59 06:59 14:59 Intake Total 1241 563 250 Output Total 1300 770 Balance -59 -207 250 Lab Results Last 24 Hours: Laboratory Results - last 24 hr 06/09/20 06/09/20 06/09/20 Range/Units 03:46 03:46 03:46 WBC 5.1 (4.5-11.0) K/uL RBC 3.44 L (4.30-5.90) M/uL Hgb 11.0 L (12.0-15.0) g/dL Hct 33.8 L (40.0-54.0) % MCV 98 (80-98) fL MCH 32 H (27-31) pg MCHC 33 (32-36) % Plt Count 107 L (150-400) K/uL PT 19.1 H (9.5-12.0) sec INR 1.77 H (0.80-1.20) Sodium 139 L (140-148) mmol/L Potassium 3.9 (3.6-5.2) mmol/L Chloride 105 (100-108) mmol/L Carbon Dioxide 29 (21-32) mmol/L Anion Gap 8.9 (5.0-14.0) mmol/L BUN 10 (7-18) mg/dL Creatinine 0.9 (0.8-1.3) mg/dL Est Cr Clr Drug Dosing 69.77 mL/min Estimated GFR (MDRD) > 60 (>60) Glucose 108 H (74-106) mg/dL Calcium 7.6 L (8.5-10.1) mg/dL Phosphorus 3.0 (2.5-4.9) mg/dL Magnesium 2.4 (1.8-2.4) mg/dL Total Bilirubin 1.0 (0.2-1.0) mg/dL AST 25 (15-37) U/L ALT 19 (12-78) U/L Alkaline Phosphatase 109 (46-116) U/L NT-Pro-B Natriuret Pep 922 H (5-450) pg/mL Total Protein 6.7 (6.4-8.2) g/dL Albumin 2.6 L (3.4-5.0) g/dL Globulin 4.1 H (2.3-3.5) g/dL Albumin/Globulin Ratio 0.6 L (1.2-2.2) Med Orders - Current: Current Medications Albuterol (Proventil Neb Soln) 2.5 mg INH Q4H PRN PRN Reason: Shortness of Breath Last Admin: 06/08/20 03:40 Dose: 2.5 mg Documented by: Arformoterol Tartrate (Brovana) 15 mcg INH BIDRT [facility] Last Admin: 06/09/20 07:15 Dose: 15 mcg Documented by: Aspirin (Halfprin) 81 mg PO DAILY [facility] Last Admin: 06/09/20 11:30 Dose: 81 mg Documented by: Azelastine HCl (Astelin Nasal Soln) 0 ml NASBOTH BID [facility] Last Admin: 06/09/20 11:25 Dose: Not Given Documented by: Bisacodyl (Dulcolax) 10 mg PO BID [facility] Last Admin: 06/09/20 11:31 Dose: 10 mg Documented by: Budesonide (Pulmicort) 0.5 mg INH BIDRT [facility] Last Admin: 06/09/20 07:15 Dose: 0.5 mg Documented by: Docusate Sodium (Colace) 100 mg PO DAILY PRN PRN Reason: Constipation Last Admin: 06/07/20 11:53 Dose: 100 mg Documented by: Finasteride (Proscar) 5 mg PO DAILY [facility] Last Admin: 06/09/20 11:31 Dose: 5 mg Documented by: Folic Acid (Folic Acid) 0.5 mg PO DAILY [facility] Last Admin: 06/09/20 11:31 Dose: 0.5 mg Documented by: Linezolid 600 mg/ Premix 300 mls @ 300 mls/hr IV Q12H [facility] Losartan Potassium (Cozaar) 25 mg PO DAILY [facility] Last Admin: 06/09/20 11:26 Dose: 25 mg Documented by: Minoxidil (Loniten) 2.5 mg PO BID [facility] Last Admin: 06/09/20 11:26 Dose: 2.5 mg Documented by: Nitroglycerin (Nitrostat) 0.4 mg SL ASDIRECTED PRN PRN Reason: Chest Pain Ondansetron HCl (Zofran) 4 mg IVPUSH Q4H PRN PRN Reason: Nausea Oxycodone HCl (Oxycodone) 5 mg PO Q4H PRN PRN Reason: Pain Last Admin: 06/08/20 16:45 Dose: 5 mg Documented by: Pantoprazole Sodium (Protonix) 40 mg PO ACBREAKFAST [facility] Last Admin: 06/09/20 08:59 Dose: Not Given Documented by: Alfuzosin 10mg (Ptom) 0 each PO BEDTIME [facility] Last Admin: 06/08/20 20:33 Dose: 1 each Documented by: Potassium Chloride (Klor-Con M20) 20 meq PO BIDMEALS [facility] Last Admin: 06/09/20 08:59 Dose: Not Given Documented by: Sodium Chloride (Saline Flush) 10 ml IV ASDIRECTED PRN PRN Reason: GROUNDS MAINTENANCE MANAGER Tiotropium Forgan (Spiriva Respimat) 0 gm INH DAILY@0700 [facility] Last Admin: 06/09/20 07:15 Dose: 4 gm Documented by: Discontinued Medications Albuterol (Proventil Neb Soln) 2.5 mg INH ONETIME ONE Stop: 06/05/20 09:46 Last Admin: 06/05/20 16:47 Dose: Not Given Documented by: Arformoterol Tartrate (Brovana) 15 mcg NEB ONETIME ONE Stop: 06/05/20 10:01 Last Admin: 06/05/20 16:47 Dose: Not Given Documented by: Bisacodyl (Dulcolax) 15 mg PO ONETIME ONE Stop: 06/07/20 21:31 Last Admin: 06/08/20 02:58 Dose: Not Given Documented by: Bisacodyl (Dulcolax) 10 mg PO BID PRN PRN Reason: Constipation Last Admin: 06/08/20 10:10 Dose: 10 mg Documented by: Budesonide (Pulmicort) 0.5 mg NEB ONETIME ONE Stop: 06/05/20 10:01 Last Admin: 06/05/20 16:47 Dose: Not Given Documented by: Bupivacaine HCl (Marcaine 0.5%) Confirm Administered Dose 50 ml .ROUTE .STK-MED ONE Stop: 06/09/20 06:11 Last Admin: 06/09/20 09:45 Dose: 5 ml Documented by: Carvedilol (Coreg) 3.125 mg PO DAILY [facility] Last Admin: 06/06/20 10:00 Dose: 3.125 mg Documented by: Carvedilol (Coreg) 3.125 mg PO BID [facility] Last Admin: 06/06/20 22:22 Dose: Not Given Documented by: Dexamethasone (Dexamethasone) Confirm Administered Dose 4 mg .ROUTE .STK-MED ONE Stop: 06/05/20 07:24 Fentanyl (Sublimaze) Confirm Administered Dose 250 mcg .ROUTE .STK-MED ONE Stop: 06/05/20 07:25 Fentanyl (Sublimaze) Confirm Administered Dose 100 mcg .ROUTE .STK-MED ONE Stop: 06/09/20 07:16 Furosemide (Lasix) 20 mg IVPUSH Q6H [facility] Stop: 06/05/20 22:01 Last Admin: 06/05/20 22:08 Dose: 20 mg Documented by: Furosemide (Lasix) 40 mg PO DAILY [facility] Last Admin: 06/08/20 09:50 Dose: 40 mg Documented by: Furosemide (Lasix) 20 mg IVPUSH BID [facility] Stop: 06/08/20 21:01 Last Admin: 06/08/20 20:32 Dose: 20 mg Documented by: Glycopyrrolate (Robinul) Confirm Administered Dose 1 mg .ROUTE .STK-MED ONE Stop: 06/05/20 07:24 Heparin Sodium (Porcine) (Heparin Lock Flush 100 Units/Ml) Confirm Administered Dose 1,000 units .ROUTE .STK-MED ONE Stop: 06/05/20 06:46 Last Admin: 06/05/20 13:00 Dose: 1,000 units Documented by: Dextrose/Lactated Ringer's (Dextrose 5%-Lactated Ringers) 1,000 mls @ 100 mls/hr IV ASDIRECTED [facility] Last Admin: 06/05/20 09:30 Dose: 100 mls/hr Documented by: Linezolid 600 mg/ Premix 300 mls @ 300 mls/hr IV ONETIME ONE Stop: 06/05/20 11:44 Last Admin: 06/05/20 12:40 Dose: 300 mls/hr Documented by: Dextrose/Lactated Ringer's (Dextrose 5%-Lactated Ringers) 1,000 mls @ 80 mls/hr IV ASDIRECTED [facility] Last Admin: 06/06/20 10:19 Dose: 80 mls/hr Documented by: Linezolid 600 mg/ Premix 300 mls @ 300 mls/hr IV Q12H [facility] Stop: 06/06/20 22:59 Last Admin: 06/06/20 21:53 Dose: 300 mls/hr Documented by: Magnesium Sulfate 2 gm/ Premix 50 mls @ 25 mls/hr IV Q6H [facility] Stop: 06/09/20 02:59 Last Admin: 06/06/20 07:28 Dose: Not Given Documented by: Magnesium Sulfate 2 gm/ Premix 50 mls @ 25 mls/hr IV Q6H [facility] Stop: 06/09/20 05:59 Last Admin: 06/09/20 04:00 Dose: 25 mls/hr Documented by: Dextrose/Lactated Ringer's (Dextrose 5%-Lactated Ringers) 1,000 mls @ 100 mls/hr IV ASDIRECTED [facility] Last Admin: 06/08/20 20:27 Dose: 100 mls/hr Documented by: Linezolid 600 mg/ Premix 300 mls @ 300 mls/hr IV ONETIME ONE Stop: 06/09/20 09:29 Last Admin: 06/09/20 08:58 Dose: 300 mls/hr Documented by: Linezolid (Zyvox) Confirm Administered Dose 300 mls @ as directed .ROUTE .STK- MED ONE Stop: 06/09/20 06:12 Lactated Ringer's (Ringers, Lactated) Confirm Administered Dose 1,000 mls @ as directed .ROUTE .STK-MED ONE Stop: 06/09/20 10:00 Lidocaine/Epinephrine (Xylocaine 1% With Epinephrine 1:100,000) Confirm Administered Dose 50 ml .ROUTE .STK-MED ONE Stop: 06/09/20 06:11 Last Admin: 06/09/20 09:45 Dose: 5 ml Documented by: Linezolid (Zyvox) 600 mg IRR .STK-MED ONE Stop: 06/05/20 13:30 Last Admin: 06/05/20 13:29 Dose: 600 mg Documented by: Linezolid (Zyvox) 600 mg IRR .STK-MED ONE Stop: 06/09/20 09:46 Last Admin: 06/09/20 09:45 Dose: 600 mg Documented by: Meropenem (Merrem) Confirm Administered Dose 500 mg .ROUTE .STK-MED ONE Stop: 06/05/20 06:46 Midazolam HCl (Versed 1 Mg/Ml) Confirm Administered Dose 2 mg .ROUTE .STK-MED ONE Stop: 06/09/20 07:16 Morphine Sulfate (Morphine Senior Advocate 150 Mg In 30 Ml) 0 mg IV ASDIRECTED PRN; Protocol PRN Reason: Pain Last Admin: 06/05/20 12:15 Dose: 1 mg Documented by: Naloxone HCl (Narcan) 0.1 mg IV ASDIRECTED PRN PRN Reason: decreased respiratory rate Neostigmine Methylsulfate (Neostigmine) Confirm Administered Dose 5 mg .ROUTE .STK-MED ONE Stop: 06/05/20 07:24 Ondansetron HCl (Zofran) Confirm Administered Dose 4 mg .ROUTE .STK-MED ONE Stop: 06/05/20 07:24 Potassium Chloride (Potassium Chloride) 10 meq PO DAILY@0800 [facility] Last Admin: 06/08/20 07:44 Dose: 10 meq Documented by: Propofol (Diprivan 20 Ml) Confirm Administered Dose 200 mg .ROUTE .STK-MED ONE Stop: 06/05/20 07:24 Propofol (Diprivan 20 Ml) Confirm Administered Dose 200 mg .ROUTE .STK-MED ONE Stop: 06/09/20 07:17 Rocuronium Forgan (Zemuron) Confirm Administered Dose 50 mg .ROUTE .STK-MED ONE Stop: 06/05/20 07:24 Succinylcholine Chloride (Quelicin) Confirm Administered Dose 200 mg .ROUTE .STK-MED ONE Stop: 06/05/20 07:24 Warfarin Sodium (Coumadin) 5 mg PO ONETIME ONE Stop: 06/06/20 17:19 Last Admin: 06/06/20 17:53 Dose: 5 mg Documented by: Warfarin Sodium (Coumadin) 5 mg PO ONETIME ONE Stop: 06/07/20 13:01 Last Admin: 06/07/20 13:15 Dose: 5 mg Documented by: Warfarin Sodium (Coumadin) 5 mg PO DAILY@1300 [facility] - Exam Quality Assessment: DVT Prophylaxis General: Sedated, Lethargic Lungs: Clear to Auscultation, Normal Respiratory Effort Cardiovascular: Regular Rate, No Murmurs GI/Abdominal Exam: Soft, Non-Tender, No Organomegaly, No Distention Extremities: Non-Tender, No Pedal Edema Sepsis Event Note - Evaluation Sepsis Screening Result: No Definite Risk - Focused Exam Vital Signs: Vital Signs Temp Temp Pulse Pulse Resp BP BP 06/09/20 12:38 06/09/20 12:35 70 18 166/80 H 06/09/20 12:07 70 18 169/73 H 06/09/20 11:51 97 F 70 18 180/96 H 06/09/20 11:36 97 F 86 18 176/82 H 06/09/20 11:26 96.8 F L 87 18 182/77 H 182/77 H 06/09/20 11:11 06/09/20 11:08 186/92 H 06/09/20 11:06 96.9 F 70 18 175/92 H 06/09/20 10:50 97.3 F 70 18 170/96 H 06/09/20 10:45 70 18 177/87 H 06/09/20 10:41 70 18 174/93 H 06/09/20 10:36 70 18 175/90 H 06/09/20 10:30 96.8 F L 70 18 167/85 H 06/09/20 07:23 06/09/20 07:00 97.2 F 42 L 16 150/63 H 06/09/20 03:00 18 06/09/20 01:52 Pulse Ox 06/09/20 12:38 94 L 06/09/20 12:35 94 L 06/09/20 12:07 94 L 06/09/20 11:51 94 L 06/09/20 11:36 95 06/09/20 11:26 98 06/09/20 11:11 94 L 06/09/20 11:08 06/09/20 11:06 94 L 06/09/20 10:50 96 06/09/20 10:45 98 06/09/20 10:41 98 06/09/20 10:36 98 06/09/20 10:30 98 06/09/20 07:23 95 06/09/20 07:00 97 06/09/20 03:00 06/09/20 01:52 96 Consult PN Assessment/Plan Procedures: Procedures ABD PARACENTESIS W/IMAGING (05/03/20) AIRWAY INHALATION TREATMENT (02/20/20) ASSAY OF CK (CPK) (01/30/16) ASSAY OF CREATININE (06/10/19) ASSAY OF MAGNESIUM (02/20/20) ASSAY OF NATRIURETIC PEPTIDE (02/20/20) ASSAY OF PHOSPHORUS (02/20/20) ASSAY OF TROPONIN QUANT (02/24/20) BLOOD CULTURE FOR BACTERIA (01/30/18) BLOOD TYPING SEROLOGIC ABO (02/20/20) BLOOD TYPING SEROLOGIC RH(D) (02/20/20) C-REACTIVE PROTEIN (01/30/18) CARDIAC REHAB/MONITOR (05/26/18) CHEST X-RAY 1 VIEW FRONTAL (01/30/16) COLONOSCOPY AND BIOPSY (02/28/15) COMPATIBILITY TEST ANTIGLOB (02/20/20) COMPATIBILITY TEST SPIN (02/20/20) COMPLETE CBC AUTOMATED (02/24/20) COMPLETE CBC W/AUTO DIFF WBC (02/20/20) COMPREHEN METABOLIC PANEL (02/20/20) CT ABD & PELV W/CONTRAST (01/30/20) CT HEAD/BRAIN W/O DYE (02/24/20) CT LOWER EXTREMITY W/O DYE (04/03/14) CT THORAX W/DYE (11/08/15) CULTURE OTHR SPECIMN AEROBIC (01/11/18) CULTURE SCREEN ONLY (01/13/19) EGD BIOPSY SINGLE/MULTIPLE (01/13/19) ELECTROCARDIOGRAM REPORT (02/20/20) ELECTROCARDIOGRAM TRACING (02/24/20) EMERGENCY DEPT VISIT (02/24/20) EMERGENCY DEPT VISIT (08/19/14) EMERGENCY DEPT VISIT (08/19/14) EMERGENCY DEPT VISIT (03/25/14) EXTRACRANIAL BILAT STUDY (04/01/19) EXTREMITY STUDY (02/10/18) FLUOROSCOPY <1 HR PHYS/QHP (02/20/20) GAIT TRAINING THERAPY (01/30/18) HOT OR COLD PACKS THERAPY (03/10/18) INFLUENZA ASSAY W/OPTIC (01/30/18) MANUAL THERAPY 1/> REGIONS (03/10/18) MEASURE BLOOD OXYGEN LEVEL (02/20/20) METABOLIC PANEL TOTAL CA (02/24/20) MRI BRAIN STEM W/O & W/DYE (05/12/19) MRI BRAIN STEM W/O DYE (01/05/14) MRI CHEST SPINE W/O DYE (05/07/20) MRI LUMBAR SPINE W/O DYE (05/07/20) MRI NECK SPINE W/O DYE (01/05/14) OT EVAL LOW COMPLEX 30 MIN (01/30/18) POSTOP FOLLOW-UP VISIT (02/18/18) PROTHROMBIN TIME (05/08/20) PT EVAL LOW COMPLEX 20 MIN (02/18/18) PT EVAL MOD COMPLEX 30 MIN (01/30/18) RBC ANTIBODY SCREEN (02/20/20) REVISE ABDOMEN-VENOUS SHUNT (05/08/20) ROUTINE VENIPUNCTURE (05/08/20) SELF CARE MNGMENT TRAINING (01/30/18) THER/PROPH/DIAG INJ SC/IM (03/25/14) THERAPEUTIC ACTIVITIES (01/30/18) THERAPEUTIC EXERCISES (03/10/18) THROMBOLYTIC VENOUS THERAPY (05/08/20) THROMBOPLASTIN TIME PARTIAL (02/20/20) TISSUE EXAM BY PATHOLOGIST (12/03/15) TOTAL KNEE ARTHROPLASTY (01/30/18) TTE W/DOPPLER COMPLETE (03/30/18) URINALYSIS AUTO W/SCOPE (01/30/18) US EXAM ABDO BACK WALL COMP (07/27/15) X-RAY EXAM ABDOMEN 2 VIEWS (04/12/20) X-RAY EXAM CHEST 1 VIEW (01/30/18) X-RAY EXAM CHEST 2 VIEWS (02/06/18) X-RAY EXAM OF KNEE 1 OR 2 (05/03/18) X-RAY EXAM OF KNEE 3 (03/25/14) Problem List Initiated/Reviewed/Updated: Yes Plan: ASSESSMENT AND RECOMMENDATIONS ATRIAL FIBRILLATION WITH SLOW VENTRICULAR RESPONSE-status post single-chamber permanent pacemaker placement this morning, stable and doing well in the postoperative period 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 Current recommendations for this would be no interv entions as it is not likely to clear the colonization and he currently does not have an active infection. -No further interventions or management required at this time
[2020-06-09] MEDS: oxyCODONE 5 MG Tab PO PRN (13:48)
--- NOTE | 2020-06-09 14:29 | PN ---
DATE OF SERVICE: 06/09/2020 The patient has been off beta-blockers now and continues to have heart rates as low as the upper 20s with underlying atrial fibrillation. Given this, Dr. Mike, consulting buyer planner, documented a single-chamber pacemaker that will be placed later today. Otherwise, his [place] shunt function appears to be satisfactory. We will cover the patient with Zyvox perioperatively with a pacemaker insertion given his colonization with MRSA. Noe Cervantes MD /[id number]
--- NOTE | 2020-06-09 15:05 | OR ---
DATE OF PROCEDURE: 06/09/2020 SURGEON: Noe Cervantes MD PREOPERATIVE DIAGNOSIS: Chronic atrial fibrillation with low ventricular rate. POSTOPERATIVE DIAGNOSIS: Chronic atrial fibrillation with low ventricular rate. OPERATIVE PROCEDURE: Insertion of transvenous ventricular pacemaker (34112). ANESTHESIA: Local plus IV sedation. INDICATION FOR PROCEDURE: Please see previous notations per Internal Medicine. Potential risks of the procedure including bleeding, infection, possible injury to the lung or vasculature as well as possible malpositioning or malfunction of the pacemaker components were all gone over and the patient wishes to proceed. DETAILS OF PROCEDURE: The patient was taken to the operating room and placed in supine position. IV sedation was administered after which the upper chest and neck areas were prepped and draped. The left subclavian area was anesthetized with 1% lidocaine and the subclavian vein cannulated. A guidewire was passed and manipulated into the superior vena cava. Some additional local was then injected. A transverse infraclavicular incision was made, carried down through the skin and subcutaneous tissue, through the pectoralis major fascia. A pacemaker pocket was then bluntly constructed. An introducer and Peel-Away catheter were then placed across the wire and the Medtronic lead, model number 5076-58 was easily placed into the right atrium. This was a lead that is MRI compatible. The lead was eventually manipulated into the midportion of the interventricular septum where it was implanted satisfactory from an electrical standpoint with a stimulation voltage of 0.5 V, impedance of 711 ohms, and R-wave sensing of 8.5 millivolts. No diaphragmatic pacing was noted at 10 V. The lead was then sutured in position and the Medtronic model number [id number] posteriorly was connected and immediately adequate pacing and sensing functions were evident and the redundant leads in the pulse generator were then placed in the pocket. Throughout the procedure, the patient colonized by MRSA. The wound and the components were irrigated with Zyvox-containing saline solution. The incision was then closed with 2 layers of 3-0 Vicryl stitch deep and a 5-0 Vicryl subcuticular stitch. Dressing was applied. The patient was taken to the recovery room in satisfactory condition. The patient's settings in the operating room were on pacing mode of VVIR with a lower rate of 70 and upper activity rate of 130. Noe Cervantes MD /[id number]
[2020-06-09] MEDS ORDERED: Furosemide 40 MG/4 ML VIAL IVPUSH ONE (17:11)
[2020-06-09] MEDS: Linezolid 600 MG in Premix Bag 1 BAG IV SCH (20:41)
[2020-06-09] MEDS: ALFUZOSIN 10 MG PO SCH (20:41)
[2020-06-09] MEDS: Acetaminophen 325 MG Tab PO PRN (21:15)
[2020-06-10] MEDS: Potassium Chloride 20 MEQ Tab.ER PO SCH ×2 (07:10→16:32)
[2020-06-10] MEDS: Pantoprazole 40 MG Tab.CR PO SCH (07:11)
[2020-06-10] MEDS: Arformoterol 15 MCG/2 ML Neb Soln INH SCH ×2 (07:26→20:54)
[2020-06-10] MEDS: Budesonide 0.5 MG/2 ML Neb Susp INH SCH ×2 (07:27→20:54)
[2020-06-10] MEDS: Tiotropium Bromide 4 GM Inhalation Spray INH SCH (07:27)
[2020-06-10] MEDS: Folic Acid 1 MG Tab PO SCH (08:06)
[2020-06-10] MEDS: Azelastine Nasal Soln 30 ML Spray Bottle NASBOTH SCH ×2 (08:06→20:54)
[2020-06-10] MEDS: Losartan 25 MG Tab PO SCH (08:07)
[2020-06-10] MEDS: Minoxidil 2.5 MG Tab PO SCH ×2 (08:08→20:55)
[2020-06-10] MEDS: Finasteride 5 MG Tab PO SCH (08:09)
[2020-06-10] MEDS: Aspirin 81 MG Tab.EC PO SCH (08:09)
[2020-06-10] MEDS: Bisacodyl 5 MG Tab PO SCH ×2 (08:11→20:55)
[2020-06-10] MEDS: Linezolid 600 MG in Premix Bag 1 BAG IV SCH ×2 (08:14→20:56)
[2020-06-10] MEDS: Acetaminophen 325 MG Tab PO PRN ×2 (09:53→17:45)
--- NOTE | 2020-06-10 12:41 | PCM.CONSN ---
- General Info Date of Service: 06/10/20 Subjective Update: Mr. Alfaro unfortunately spiked a temp last night of 102 degrees. White blood cell count has been within normal range and he has been afebrile since then. He otherwise feels relatively well this morning and denies any new symptoms. He is felt to have a hematoma related to pacemaker placement. Dr. Cervantes will look at this again tomorrow. Functional Status: Reports: Tolerating Diet, Ambulating, Urinating - Review of Systems General: Reports: Fever. Denies: Weakness, Fatigue, Chills Pulmonary: Reports: No Symptoms Cardiovascular: Reports: No Symptoms Gastrointestinal: Reports: No Symptoms - Patient Data Vitals - Most Recent: Last Vital Signs Temp 99.3 F 06/10/20 10:33 Pulse 70 06/10/20 10:33 Resp 18 06/10/20 10:33 BP 126/60 06/10/20 10:33 Pulse Ox 93 L 06/10/20 10:33 Weight - Most Recent: 232 lb I&O - Last 24 Hours: Intake & Output 06/09/20 06/10/20 06/10/20 22:59 06:59 14:59 Intake Total 5669 031 7051 Output Total 1375 150 Balance -75 480 1070 Lab Results Last 24 Hours: Laboratory Results - last 24 hr 06/10/20 Range/Units 04:00 PT 18.8 H (9.5-12.0) sec INR 1.74 H (0.80-1.20) Med Orders - Current: Current Medications Acetaminophen (Tylenol) 650 mg PO Q4H PRN PRN Reason: Temperature Last Admin: 06/10/20 09:53 Dose: 650 mg Documented by: Albuterol (Proventil Neb Soln) 2.5 mg INH Q4H PRN PRN Reason: Shortness of Breath Last Admin: 06/08/20 03:40 Dose: 2.5 mg Documented by: Arformoterol Tartrate (Brovana) 15 mcg INH BIDRT [facility] Last Admin: 06/10/20 07:26 Dose: 15 mcg Documented by: Aspirin (Halfprin) 81 mg PO DAILY [facility] Last Admin: 06/10/20 08:09 Dose: 81 mg Documented by: Azelastine HCl (Astelin Nasal Soln) 0 ml NASBOTH BID [facility] Last Admin: 06/10/20 08:06 Dose: 4 sprays Documented by: Bisacodyl (Dulcolax) 10 mg PO BID [facility] Last Admin: 06/10/20 08:11 Dose: Not Given Documented by: Budesonide (Pulmicort) 0.5 mg INH BIDRT [facility] Last Admin: 06/10/20 07:27 Dose: 0.5 mg Documented by: Docusate Sodium (Colace) 100 mg PO DAILY PRN PRN Reason: Constipation Last Admin: 06/07/20 11:53 Dose: 100 mg Documented by: Finasteride (Proscar) 5 mg PO DAILY [facility] Last Admin: 06/10/20 08:09 Dose: 5 mg Documented by: Folic Acid (Folic Acid) 0.5 mg PO DAILY [facility] Last Admin: 06/10/20 08:06 Dose: 0.5 mg Documented by: Linezolid 600 mg/ Premix 300 mls @ 300 mls/hr IV Q12H [facility] Last Admin: 06/10/20 08:14 Dose: 300 mls/hr Documented by: Losartan Potassium (Cozaar) 25 mg PO DAILY [facility] Last Admin: 06/10/20 08:07 Dose: 25 mg Documented by: Minoxidil (Loniten) 2.5 mg PO BID [facility] Last Admin: 06/10/20 08:08 Dose: 2.5 mg Documented by: Nitroglycerin (Nitrostat) 0.4 mg SL ASDIRECTED PRN PRN Reason: Chest Pain Ondansetron HCl (Zofran) 4 mg IVPUSH Q4H PRN PRN Reason: Nausea Oxycodone HCl (Oxycodone) 5 mg PO Q4H PRN PRN Reason: Pain Last Admin: 06/09/20 13:48 Dose: 5 mg Documented by: Pantoprazole Sodium (Protonix) 40 mg PO ACBREAKFAST [facility] Last Admin: 06/10/20 07:11 Dose: 40 mg Documented by: Alfuzosin 10mg (Ptom) 0 each PO BEDTIME [facility] Last Admin: 06/09/20 20:41 Dose: 1 each Documented by: Potassium Chloride (Klor-Con M20) 20 meq PO BIDMEALS [facility] Last Admin: 06/10/20 07:10 Dose: 20 meq Documented by: Sodium Chloride (Saline Flush) 10 ml IV ASDIRECTED PRN PRN Reason: [employer] Tiotropium [place] (Spiriva Respimat) 0 gm INH DAILY@0700 [facility] Last Admin: 06/10/20 07:27 Dose: 4 gm Documented by: Discontinued Medications Albuterol (Proventil Neb Soln) 2.5 mg INH ONETIME ONE Stop: 06/05/20 09:46 Last Admin: 06/05/20 16:47 Dose: Not Given Documented by: Arformoterol Tartrate (Brovana) 15 mcg NEB ONETIME ONE Stop: 06/05/20 10:01 Last Admin: 06/05/20 16:47 Dose: Not Given Documented by: Bisacodyl (Dulcolax) 15 mg PO ONETIME ONE Stop: 06/07/20 21:31 Last Admin: 06/08/20 02:58 Dose: Not Given Documented by: Bisacodyl (Dulcolax) 10 mg PO BID PRN PRN Reason: Constipation Last Admin: 06/08/20 10:10 Dose: 10 mg Documented by: Budesonide (Pulmicort) 0.5 mg NEB ONETIME ONE Stop: 06/05/20 10:01 Last Admin: 06/05/20 16:47 Dose: Not Given Documented by: Bupivacaine HCl (Marcaine 0.5%) Confirm Administered Dose 50 ml .ROUTE .STK-MED ONE Stop: 06/09/20 06:11 Last Admin: 06/09/20 09:45 Dose: 5 ml Documented by: Carvedilol (Coreg) 3.125 mg PO DAILY [facility] Last Admin: 06/06/20 10:00 Dose: 3.125 mg Documented by: Carvedilol (Coreg) 3.125 mg PO BID [facility] Last Admin: 06/06/20 22:22 Dose: Not Given Documented by: Dexamethasone (Dexamethasone) Confirm Administered Dose 4 mg .ROUTE .STK-MED ONE Stop: 06/05/20 07:24 Fentanyl (Sublimaze) Confirm Administered Dose 250 mcg .ROUTE .STK-MED ONE Stop: 06/05/20 07:25 Fentanyl (Sublimaze) Confirm Administered Dose 100 mcg .ROUTE .STK-MED ONE Stop: 06/09/20 07:16 Furosemide (Lasix) 20 mg IVPUSH Q6H [facility] Stop: 06/05/20 22:01 Last Admin: 06/05/20 22:08 Dose: 20 mg Documented by: Furosemide (Lasix) 40 mg PO DAILY [facility] Last Admin: 06/08/20 09:50 Dose: 40 mg Documented by: Furosemide (Lasix) 20 mg IVPUSH BID [facility] Stop: 06/08/20 21:01 Last Admin: 06/08/20 20:32 Dose: 20 mg Documented by: Furosemide (Lasix) 40 mg IVPUSH ONETIME ONE Stop: 06/09/20 17:12 Last Admin: 06/09/20 17:57 Dose: 40 mg Documented by: Glycopyrrolate (Robinul) Confirm Administered Dose 1 mg .ROUTE .STK-MED ONE Stop: 06/05/20 07:24 Heparin Sodium (Porcine) (Heparin Lock Flush 100 Units/Ml) Confirm Administered Dose 1,000 units .ROUTE .STK-MED ONE Stop: 06/05/20 06:46 Last Admin: 06/05/20 13:00 Dose: 1,000 units Documented by: Dextrose/Lactated Ringer's (Dextrose 5%-Lactated Ringers) 1,000 mls @ 100 mls/hr IV ASDIRECTED [facility] Last Admin: 06/05/20 09:30 Dose: 100 mls/hr Documented by: Linezolid 600 mg/ Premix 300 mls @ 300 mls/hr IV ONETIME ONE Stop: 06/05/20 11:44 Last Admin: 06/05/20 12:40 Dose: 300 mls/hr Documented by: Dextrose/Lactated Ringer's (Dextrose 5%-Lactated Ringers) 1,000 mls @ 80 mls/hr IV ASDIRECTED [facility] Last Admin: 06/06/20 10:19 Dose: 80 mls/hr Documented by: Linezolid 600 mg/ Premix 300 mls @ 300 mls/hr IV Q12H [facility] Stop: 06/06/20 22:59 Last Admin: 06/06/20 21:53 Dose: 300 mls/hr Documented by: Magnesium Sulfate 2 gm/ Premix 50 mls @ 25 mls/hr IV Q6H [facility] Stop: 06/09/20 02:59 Last Admin: 06/06/20 07:28 Dose: Not Given Documented by: Magnesium Sulfate 2 gm/ Premix 50 mls @ 25 mls/hr IV Q6H [facility] Stop: 06/09/20 05:59 Last Admin: 06/09/20 04:00 Dose: 25 mls/hr Documented by: Dextrose/Lactated Ringer's (Dextrose 5%-Lactated Ringers) 1,000 mls @ 100 mls/hr IV ASDIRECTED [facility] Last Admin: 06/08/20 20:27 Dose: 100 mls/hr Documented by: Linezolid 600 mg/ Premix 300 mls @ 300 mls/hr IV ONETIME ONE Stop: 06/09/20 09:29 Last Admin: 06/09/20 08:58 Dose: 300 mls/hr Documented by: Linezolid (Zyvox) Confirm Administered Dose 300 mls @ as directed .ROUTE .STK- MED ONE Stop: 06/09/20 06:12 Lactated Ringer's (Ringers, Lactated) Confirm Administered Dose 1,000 mls @ as directed .ROUTE .STK-MED ONE Stop: 06/09/20 10:00 Lidocaine/Epinephrine (Xylocaine 1% With Epinephrine 1:100,000) Confirm Administered Dose 50 ml .ROUTE .STK-MED ONE Stop: 06/09/20 06:11 Last Admin: 06/09/20 09:45 Dose: 5 ml Documented by: Linezolid (Zyvox) 600 mg IRR .STK-MED ONE Stop: 06/05/20 13:30 Last Admin: 06/05/20 13:29 Dose: 600 mg Documented by: Linezolid (Zyvox) 600 mg IRR .STK-MED ONE Stop: 06/09/20 09:46 Last Admin: 06/09/20 09:45 Dose: 600 mg Documented by: Meropenem (Merrem) Confirm Administered Dose 500 mg .ROUTE .STK-MED ONE Stop: 06/05/20 06:46 Midazolam HCl (Versed 1 Mg/Ml) Confirm Administered Dose 2 mg .ROUTE .STK-MED ONE Stop: 06/09/20 07:16 Morphine Sulfate (Morphine [employer] 150 Mg In 30 Ml) 0 mg IV ASDIRECTED PRN; Protocol PRN Reason: Pain Last Admin: 06/05/20 12:15 Dose: 1 mg Documented by: Naloxone HCl (Narcan) 0.1 mg IV ASDIRECTED PRN PRN Reason: decreased respiratory rate Neostigmine Methylsulfate (Neostigmine) Confirm Administered Dose 5 mg .ROUTE .STK-MED ONE Stop: 06/05/20 07:24 Ondansetron HCl (Zofran) Confirm Administered Dose 4 mg .ROUTE .STK-MED ONE Stop: 06/05/20 07:24 Potassium Chloride (Potassium Chloride) 10 meq PO DAILY@0800 [facility] Last Admin: 06/08/20 07:44 Dose: 10 meq Documented by: Propofol (Diprivan 20 Ml) Confirm Administered Dose 200 mg .ROUTE .STK-MED ONE Stop: 06/05/20 07:24 Propofol (Diprivan 20 Ml) Confirm Administered Dose 200 mg .ROUTE .STK-MED ONE Stop: 06/09/20 07:17 Rocuronium [place] (Zemuron) Confirm Administered Dose 50 mg .ROUTE .STK-MED ONE Stop: 06/05/20 07:24 Succinylcholine Chloride (Quelicin) Confirm Administered Dose 200 mg .ROUTE .STK-MED ONE Stop: 06/05/20 07:24 Warfarin Sodium (Coumadin) 5 mg PO ONETIME ONE Stop: 06/06/20 17:19 Last Admin: 06/06/20 17:53 Dose: 5 mg Documented by: Warfarin Sodium (Coumadin) 5 mg PO ONETIME ONE Stop: 06/07/20 13:01 Last Admin: 06/07/20 13:15 Dose: 5 mg Documented by: Warfarin Sodium (Coumadin) 5 mg PO DAILY@1300 [facility] - Exam Quality Assessment: DVT Prophylaxis General: Alert, Oriented, Cooperative, No Acute Distress Lungs: Clear to Auscultation, Normal Respiratory Effort Cardiovascular: Regular Rate, Regular Rhythm, No Murmurs GI/Abdominal Exam: Soft, Non-Tender, No Organomegaly, No Distention Extremities: Non-Tender, No Pedal Edema Sepsis Event Note - Evaluation Sepsis Screening Result: No Definite Risk - Focused Exam Vital Signs: Vital Signs Temp Temp Pulse Resp BP BP Pulse Ox 06/10/20 10:33 99.3 F 70 18 126/60 93 L 06/10/20 10:23 99.3 F 06/10/20 09:53 100 F 06/10/20 08:08 138/69 06/10/20 08:07 138/69 06/10/20 07:30 93 L 06/10/20 07:27 70 06/10/20 07:13 98.9 F 70 18 138/69 93 L 06/10/20 04:31 98.6 F 70 18 134/68 92 L 06/10/20 01:24 93 L 06/10/20 00:49 99.7 F Consult PN Assessment/Plan Procedures: Procedures ABD PARACENTESIS W/IMAGING (05/03/20) AIRWAY INHALATION TREATMENT (02/20/20) ASSAY OF CK (CPK) (01/30/16) ASSAY OF CREATININE (06/10/19) ASSAY OF MAGNESIUM (02/20/20) ASSAY OF NATRIURETIC PEPTIDE (02/20/20) ASSAY OF PHOSPHORUS (02/20/20) ASSAY OF TROPONIN QUANT (02/24/20) BLOOD CULTURE FOR BACTERIA (01/30/18) BLOOD TYPING SEROLOGIC ABO (02/20/20) BLOOD TYPING SEROLOGIC RH(D) (02/20/20) C-REACTIVE PROTEIN (01/30/18) CARDIAC REHAB/MONITOR (05/26/18) CHEST X-RAY 1 VIEW FRONTAL (01/30/16) COLONOSCOPY AND BIOPSY (02/28/15) COMPATIBILITY TEST ANTIGLOB (02/20/20) COMPATIBILITY TEST SPIN (02/20/20) COMPLETE CBC AUTOMATED (02/24/20) COMPLETE CBC W/AUTO DIFF WBC (02/20/20) COMPREHEN METABOLIC PANEL (02/20/20) CT ABD & PELV W/CONTRAST (01/30/20) CT HEAD/BRAIN W/O DYE (02/24/20) CT LOWER EXTREMITY W/O DYE (04/03/14) CT THORAX W/DYE (11/08/15) CULTURE OTHR SPECIMN AEROBIC (01/11/18) CULTURE SCREEN ONLY (01/13/19) EGD BIOPSY SINGLE/MULTIPLE (01/13/19) ELECTROCARDIOGRAM REPORT (02/20/20) ELECTROCARDIOGRAM TRACING (02/24/20) EMERGENCY DEPT VISIT (02/24/20) EMERGENCY DEPT VISIT (08/19/14) EMERGENCY DEPT VISIT (08/19/14) EMERGENCY DEPT VISIT (03/25/14) EXTRACRANIAL BILAT STUDY (04/01/19) EXTREMITY STUDY (02/10/18) FLUOROSCOPY <1 HR PHYS/QHP (02/20/20) GAIT TRAINING THERAPY (01/30/18) HOT OR COLD PACKS THERAPY (03/10/18) INFLUENZA ASSAY W/OPTIC (01/30/18) MANUAL THERAPY 1/> REGIONS (03/10/18) MEASURE BLOOD OXYGEN LEVEL (02/20/20) METABOLIC PANEL TOTAL CA (02/24/20) MRI BRAIN STEM W/O & W/DYE (05/12/19) MRI BRAIN STEM W/O DYE (01/05/14) MRI CHEST SPINE W/O DYE (05/07/20) MRI LUMBAR SPINE W/O DYE (05/07/20) MRI NECK SPINE W/O DYE (01/05/14) OT EVAL LOW COMPLEX 30 MIN (01/30/18) POSTOP FOLLOW-UP VISIT (02/18/18) PROTHROMBIN TIME (05/08/20) PT EVAL LOW COMPLEX 20 MIN (02/18/18) PT EVAL MOD COMPLEX 30 MIN (01/30/18) RBC ANTIBODY SCREEN (02/20/20) REVISE ABDOMEN-VENOUS SHUNT (05/08/20) ROUTINE VENIPUNCTURE (05/08/20) SELF CARE MNGMENT TRAINING (01/30/18) THER/PROPH/DIAG INJ SC/IM (03/25/14) THERAPEUTIC ACTIVITIES (01/30/18) THERAPEUTIC EXERCISES (03/10/18) THROMBOLYTIC VENOUS THERAPY (05/08/20) THROMBOPLASTIN TIME PARTIAL (02/20/20) TISSUE EXAM BY PATHOLOGIST (12/03/15) TOTAL KNEE ARTHROPLASTY (01/30/18) TTE W/DOPPLER COMPLETE (03/30/18) URINALYSIS AUTO W/SCOPE (01/30/18) US EXAM ABDO BACK WALL COMP (07/27/15) X-RAY EXAM ABDOMEN 2 VIEWS (04/12/20) X-RAY EXAM CHEST 1 VIEW (01/30/18) X-RAY EXAM CHEST 2 VIEWS (02/06/18) X-RAY EXAM OF KNEE 1 OR 2 (05/03/18) X-RAY EXAM OF KNEE 3 (03/25/14) Problem List Initiated/Reviewed/Updated: Yes Plan: ASSESSMENT AND RECOMMENDATIONS ATRIAL FIBRILLATION WITH SLOW VENTRICULAR RESPONSE-status post single-chamber permanent pacemaker placement. 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 Current recommendations for this would be no interventions as it is not likely to clear the colonization and he currently does not have an active infection. -No further interventions or management required at this time LONG-TERM ORAL ANTICOAGULATION WITH WARFARIN-INR remains subtherapeutic, warfarin was held prior to permanent pacemaker placement -Management per Dr. Cervantes -Recheck INR in a.m.
--- NOTE | 2020-06-10 13:22 | PN ---
DATE OF SERVICE: 06/10/2020 The patient's temperature got sometimes up to 102 overnight and has come down to 98 presently and he looks otherwise clinically stable. I suspect that had to do with the bedrest and probably some pulmonary issues. At any rate, he looks fairly good this morning. The only problem we are seeing is that of some hematoma at this pacemaker site. We will recheck that in the morning and we will have him n.p.o. after midnight . We will need to probably take him back to the operating room and irrigate out the pulse generator site and re-closing at that time to minimize chances of infectious issues. Noe Cervantes MD /[id number]
--- NOTE | 2020-06-10 13:58 | OR ---
DATE OF PROCEDURE: 06/05/2020 SURGEON: Noe Cervantes MD PREOPERATIVE DIAGNOSIS: Tense ascites. POSTOPERATIVE DIAGNOSIS: Tense ascites. OPERATIVE PROCEDURE: Insertion of [place] peritoneal venous shunt via left internal jugular vein approach ([id number]). ANESTHESIA: General. VERIFICATION REP: Bianca Marroquin PA-C INDICATIONS FOR PROCEDURE: The patient presents with ongoing ascites. He has a functioning right-sided [place] shunt, but it would appear that the ascites formation is such that he gets some relief from that, but this would be better suited with more less tense decompression of his ascites over time. After discussion, he would like to proceed with additional shunt placement on the left side. Potential risks of the procedure including bleeding, infection, or injury to the viscera and/or vasculature were all discussed, and the patient wishes to proceed. DETAILS OF PROCEDURE: The patient was taken to the operating room, placed in a supine position. After general endotracheal anesthesia was induced, the abdomen, chest, and neck areas were prepped and draped. Initially, the left internal jugular vein was identified by ultrasound and cannulated, and guidewire passed, and from there manipulated into the superior vena cava. A second incision was then made just along the costal margin in the midclavicular level on the left side. This was carried down through the skin and subcutaneous tissue and down to the level of fascia. An incision was then made in the superficial-most fascial layer. A needle was then passed into that area, and ascitic fluid was returned, and a guidewire was also then passed from that area. The shunt was then attached to a tunneling device. The abdominal incision was then bluntly extended up over the chest to allow placement of the pump. Through that, then the tunneling device was passed up to the level of the jugular incision, which at that point was somewhat enlarged and with venous end of the shunt attached pulled up into that area. The pump came up nicely into the pocket created for the pump over the lower left ribs. With the introducer and peel-away catheter, the abdominal component of the shunt was then placed under fluoroscopic control. This came nicely down along the lower anterolateral aspect of the abdomen and uppermost pelvis. Good flow of ascitic fluid in the shunt was confirmed at that point. The venous end of the shunt was then cut such that the tip would lie in the area of the superior vena cava somewhere above of the right atrium. This was then placed without difficulty with introducer and peel-away catheter system as well again with ongoing fluoroscopic control, and once again, good pump function was confirmed with easy compression and filling of the pump. The jugular incision was then closed with 4-0 Vicryl subdermal stitch and Steri-Strips. The abdominal incision was then closed with 2 layers of 3-0 and 4-0 Vicryl stitch deep and then jaime for the skin. Dressing was then applied. The patient was taken to the recovery room in satisfactory condition. Physician human services assistant, Bianca Marroquin PA-C, played an essential role in assisting in this case, helping to position the patient, retract structures as needed as well as suturing and cutting sutures when indicated. Her presence improved patient safety and decreased the operative time. Noe Cervantes MD /[id number]
[2020-06-10] MEDS: oxyCODONE 5 MG Tab PO PRN (17:47)
[2020-06-10] MEDS: ALFUZOSIN 10 MG PO SCH (20:55)
[2020-06-11] MEDS: Tiotropium Bromide 4 GM Inhalation Spray INH SCH (07:19)
[2020-06-11] MEDS: Arformoterol 15 MCG/2 ML Neb Soln INH SCH (07:19)
[2020-06-11] MEDS: Budesonide 0.5 MG/2 ML Neb Susp INH SCH (07:19)
[2020-06-11] MEDS: Potassium Chloride 20 MEQ Tab.ER PO SCH (07:35)
[2020-06-11] MEDS: Pantoprazole 40 MG Tab.CR PO SCH (07:38)
[2020-06-11] MEDS: Linezolid 600 MG in Premix Bag 1 BAG IV SCH (09:39)
[2020-06-11] MEDS: Folic Acid 1 MG Tab PO SCH (09:51)
[2020-06-11] MEDS: Aspirin 81 MG Tab.EC PO SCH (09:52)
--- NOTE | 2020-06-11 09:52 | CR ---
CHEST: 2 view AP and lateral CLINICAL HISTORY:Pacemaker insertion COMPARISON:January 2018 FINDINGS: Heart is enlarged. Pulmonary vascularity is mildly cephalized. Patient has had a previous sternotomy. There has been placement of a permanent cardiac pacer from the left. Lead is in the right ventricle. There are bilateral jugular central lines in place in the superior vena cava and the left brachiocephalic vein.. Impression: Interval placement of permanent cardiac pacer Cardiac megaly. Previous sternotomy Mild vascular cephalization may be positional Bilateral jugular central lines are in place
[2020-06-11] MEDS: Minoxidil 2.5 MG Tab PO SCH (09:53)
[2020-06-11] MEDS: Losartan 25 MG Tab PO SCH (09:54)
[2020-06-11] MEDS: Bisacodyl 5 MG Tab PO SCH (09:55)
[2020-06-11] MEDS: Finasteride 5 MG Tab PO SCH (10:25)
[2020-06-11] MEDS: Azelastine Nasal Soln 30 ML Spray Bottle NASBOTH SCH (10:27)
[2020-06-11] MEDS ORDERED: Furosemide 40 MG Tab PO SCH (10:30)
[2020-06-11 11:23] VITALS: BP 113/61; PULSE 64
--- NOTE | 2020-06-12 10:37 | DISCH ---
ADMISSION DIAGNOSES: 1. Malfunctioning [place]rell shunt. 2. Coronary artery disease. 3. Chronic atrial fibrillation. 4. Essential hypertension. 5. Hyperlipidemia. 6. BPH with lower urinary tract symptoms and occasional urinary tract infections. 7. Type 2 diabetes. 8. Gastroesophageal reflux disease. 9. Obstructive sleep apnea, on CPAP. 10.Bradycardia. 11.Chronic obstructive pulmonary disease. DISCHARGE DIAGNOSES: 1. Insertion of transvenous ventricular pacemaker for chronic atrial fibrillation with low ventricular rate. Date of surgery: 06/09/2020. Surgeon: Noe Cervantes MD. 2. Insertion of [place] peritoneal venous shunt via left internal jugular vein approach for tense ascites. Date of surgery: 06/05/2020. HISTORY: Valentin Alfaro is a patient with ongoing ascites. He has a functioning right-sided [place] shunt, but he continues to be having increasing ascites. After preoperative evaluation, discussion of possible risks and possible complications, he wished to proceed with surgical procedure. Akash had his shunt placed on 06/05/2020. He did develop increasing episodes of bradycardia, and he had a consultation with hospitalist, Ty Mike MD, and with his heart rate, it was indicated that he have a pacemaker placed. He did have the pacemaker placed on 06/09/2020. He had no operative complications. He continued to be monitored for his PT/INR and lab work. Vital signs did remain stable. Pulse rate was in the 70s when he was discharged. Oral intake was adequate and pain was controlled. He was able to be discharged to home without any complications and 2 working Tyrell shunts on 06/11/2020. PHYSICAL EXAMINATION: GENERAL: Akash Alfaro is a pleasant 74-year-old male. He is alert and oriented. VITAL SIGNS: TPR is 5 feet 8.5 inches, weight is 232 pounds. TPR at 0800, 97.4; 71; 16, blood pressure 105/57. HEENT: Negative. NECK: Supple. Incisions well healed. HEART: Regular rate and rhythm. CHEST: Incision left chest is slightly swollen where the pacemaker was, and there appears to be a small hematoma but is dissipating throughout his chest area. LUNGS: Clear. ABDOMEN: Both [place] shunts on right and left are palpated and pumped without any difficulty. Abdomen is much less tense. EXTREMITIES: Without peripheral edema. DISPOSITION: Discharged to home. CONDITION: Stable and improving. FOLLOWUP: Appointment with Noe Cervantes MD, at [facility] on 06/20/2020 at 2:30 p.m. HOME MEDICATIONS: Continue his same medications. 1. Astelin nasal spray twice daily in each nostril. 2. Coumadin 5 mg oral daily, start on 06/12/2020. 3. Cozaar 25 mg oral daily. 4. Folic acid 0.5 mg oral daily tablet. 5. Aspirin 81 mg p.o. daily. 6. Potassium chloride 20 mEq twice daily with meals, #60 with 11 refills. 7. Minoxidil 2.5 mg oral twice a day. 8. Nitroglycerin 0.4 mg sublingual as directed p.r.n. chest pain. 9. Pulmicort 0.5 mg inhalation twice daily. 10.Spiriva Respimat inhalation at 7 once daily. 11.Tylenol 650 mg every 4 hours p.r.n. pain. 12.ProAir inhaler 2 puffs every 6 hours. 13.Alfuzosin (Uroxatral) 10 mg oral daily. 14.Brovana 15 mcg/2 mL neb, 2 mL inhalation twice daily. 15.Aspirin 81 mg daily. 16.Proscar 5 mg oral daily. 17.Furosemide 40 mg oral daily. 18.Glucosamine complex 1 oral twice daily. 19.Losartan 25 mg oral twice daily. 20.Cozaar 25 mg oral daily. 21.Protonix 40 mg oral daily. 22.Crestor 15 mg oral at bedtime. 23.Spiriva daily. 24.Valtrex 500 mg twice daily. DIET: Usual diet as tolerated. Drink 8 to 10 glasses of water a day. ACTIVITY: As tolerated. No lifting over 10 pounds for 6 weeks. Driving: Do not drive for 1 week or while on pain medication. Shower/bathing: May shower. DISCHARGE INSTRUCTIONS: Notify provider if any fever, increased pain, swelling, redness, drainage, nausea, or vomiting. Use incentive spirometer 10 times every hour while awake.
== END 2020-06-11 13:00 | disposition home or self-care (01) | DRG 908 ==
LOC: EDSTATUS 07:15 → JP.SDS 09:07 → JP.MS 09:07
PROVIDERS: ADMIT Surgery; ATTEND Surgery
PROC: 0W1G3JW Bypass Peritoneal Cavity to Upper Vein with Synthetic Substitute, Percutaneous Approach (ICD-10-PCS; principal; 2020-06-05)
PROC: 0JH604Z Insertion of Pacemaker, Single Chamber into Chest Subcutaneous Tissue and Fascia, Open Approach (ICD-10-PCS; 2020-06-09)
PROC: 02HK3JZ Insertion of Pacemaker Lead into Right Ventricle, Percutaneous Approach (ICD-10-PCS; 2020-06-09)
DX: T85.698A Other mechanical complication of other specified internal prosthetic devices, implants and grafts, initial encounter (principal); R18.8 Other ascites; I48.20 Chronic atrial fibrillation, unspecified; N39.0 Urinary tract infection, site not specified; I25.10 Atherosclerotic heart disease of native coronary artery without angina pectoris; R00.1 Bradycardia, unspecified; I10 Essential (primary) hypertension; E78.5 Hyperlipidemia, unspecified; N40.0 Benign prostatic hyperplasia without lower urinary tract symptoms; K21.9 Gastro-esophageal reflux disease without esophagitis; G47.33 Obstructive sleep apnea (adult) (pediatric); J44.9 Chronic obstructive pulmonary disease, unspecified; Z79.82 Long term (current) use of aspirin; B95.62 Methicillin resistant Staphylococcus aureus infection as the cause of diseases classified elsewhere; Z79.899 Other long term (current) drug therapy; Z79.01 Long term (current) use of anticoagulants; Z88.2 Allergy status to sulfonamides; Z88.8 Allergy status to other drugs, medicaments and biological substances; Z88.5 Allergy status to narcotic agent; Z87.891 Personal history of nicotine dependence
CPT/HCPCS: 36415; 71046; 71046-26; 76000; 80053; 83735; 83880; 84100; 85025; 85027; 85610; 85730; 86850; 86900; 86901; 87070; 87186; 93005; 93010; 94640; 94762; 99222-AI; 99231; 99232; A9270-GY; C1785; C1898; J0330; J1100; J1642; J1940; J2020; J2185; J2250; J2270; J2405; J2704; J2710; J3010; J3475; J3490; J7120; J7121; J7605

== ENCOUNTER 2020-06-25 09:45 | Day surgery (SDC) | payer MEDICARE, BC ==
[2020-06-25] MEDS ORDERED: Neomycin/Polymyxin B 1 ML, Sodium Chloride 0.9% 500 ML IRR ONE ×2 (10:24)
[2020-06-25] MEDS ORDERED: Dextrose 5%-Lactated Ringers 1,000 ML IV SCH (10:45)
[2020-06-25] MEDS ORDERED: Bupivacaine 0.5% 50 ML MDV ONE (10:55)
[2020-06-25] MEDS ORDERED: Lidocaine 1% with EPINEPHrine 1:100,000 50 ML MDV ONE (10:55)
[2020-06-25] MEDS ORDERED: Linezolid 600 MG in Premix Bag 1 BAG IV ONE (11:15)
[2020-06-25] MEDS ORDERED: Midazolam 1 MG/ML 2 ML SDV ONE (11:48)
[2020-06-25] MEDS ORDERED: fentaNYL 100 MCG/2 ML SDV ONE (11:48)
[2020-06-25] MEDS ORDERED: Propofol 200 MG/20 ML SDV ONE (11:48)
[2020-06-25 13:21] VITALS: PULSE 69
[2020-06-25 13:47] VITALS: BP 136/83
--- NOTE | 2020-06-29 14:57 | OR ---
DATE OF PROCEDURE: 06/25/2020 SURGEON: Noe Cervantes MD PREOPERATIVE DIAGNOSIS: Hematoma, pacemaker site. POSTOPERATIVE DIAGNOSIS: Evacuation of hematoma, pacemaker site, and revision of pacemaker pocket (17246). ANESTHESIA: Local plus IV sedation. INDICATIONS FOR PROCEDURE: The patient presents with an ongoing pacemaker hematoma to minimize chances of infection. He needs to undergo evacuation of the hematoma, and we will revise the pacemaker pocket as well. Potential risks of the procedure including further bleeding and infection were reviewed, and the patient wishes to proceed. DETAILS OF PROCEDURE: The patient was taken to the operative room and placed in a supine position. IV sedation was administered after which the upper chest and neck areas were prepped and draped. The incision at the pacemaker site was then reopened and the hematoma cavity entered. Quite a bit of liquid blood with some solid clots and blood were also evacuated. Once all the blood was evacuated, the area had been cultured and then irrigated with a combination of antibiotic solution containing neomycin, meropenem, and Zyvox. The pacemaker pocket was then revised somewhat, tenting some of the around the posteriorly with some 3-0 Vicryl stitches and relocating the pulse generator somewhat behind the pectoralis muscle. There appeared to be good hemostasis at this point. The wound was once again irrigated with antibiotic-containing saline solution. The incision was then closed with 2 layers of 3-0 Vicryl stitch deep and a 4-0 Vicryl subcuticular stitch. A dressing was applied , and the patient was taken to the recovery room in satisfactory condition. A pressure dressing had been applied over the area to try to minimize chances of recurrent hematoma formation. 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 He has been having trouble keeping the potassium. Potassium remains low this morning. He has a prescription to start that potassium. We will cut the Lasix from 40 to 20 mg a day and then add spironolactone 25 mg daily to his regimen and recheck the BMP in roughly one week. The magnesium is also low today, and we will start him on magnesium oxide 400 mg daily. We will see the patient back on Thursday in 48 hours to check the wound, and if there is any fluid accumulating in the pocket, evacuate it at that time. Noe Cervantes MD /[id number]
== END 2020-06-25 13:59 | disposition home or self-care (01) ==
LOC: JP.SDS 09:45
PROVIDERS: ATTEND Surgery
DX: I97.638 Postprocedural hematoma of a circulatory system organ or structure following other circulatory system procedure (principal); I25.10 Atherosclerotic heart disease of native coronary artery without angina pectoris; J44.9 Chronic obstructive pulmonary disease, unspecified; E78.5 Hyperlipidemia, unspecified; I10 Essential (primary) hypertension; E11.9 Type 2 diabetes mellitus without complications; I48.91 Unspecified atrial fibrillation; I27.20 Pulmonary hypertension, unspecified; K21.9 Gastro-esophageal reflux disease without esophagitis
CPT/HCPCS: 10140; 36415; 80048; 83735; 84100; 85610; 87070; 87075; 87205; J2020; J2185; J2250; J2704; J3010; J3490; J7121

== ENCOUNTER 2022-05-29 06:51 | Day surgery (SDC) | payer MEDICARE, BC ==
[2022-05-29] MEDS ORDERED: fentaNYL 100 MCG/2 ML SDV ONE (07:22)
[2022-05-29] MEDS ORDERED: Propofol 200 MG/20 ML SDV ONE (07:22)
[2022-05-29] MEDS ORDERED: Dextrose 5%-Lactated Ringers 1,000 ML IV SCH (07:30)
[2022-05-29] MEDS ORDERED: Alteplase 2 MG Vial IVPUSH ONE (08:00)
[2022-05-29 09:55] VITALS: BP 151/81; PULSE 71
== END 2022-05-29 10:10 | disposition home or self-care (01) ==
LOC: JP.SDS 06:51
PROVIDERS: ATTEND Surgery
DX: Z12.11 Encounter for screening for malignant neoplasm of colon (principal); T82.868A Thrombosis due to vascular prosthetic devices, implants and grafts, initial encounter; K64.9 Unspecified hemorrhoids; J44.9 Chronic obstructive pulmonary disease, unspecified; G47.33 Obstructive sleep apnea (adult) (pediatric); I25.10 Atherosclerotic heart disease of native coronary artery without angina pectoris; I10 Essential (primary) hypertension; E11.9 Type 2 diabetes mellitus without complications; K21.9 Gastro-esophageal reflux disease without esophagitis; Z86.010 Personal history of colon polyps
CPT/HCPCS: 49427; G0105; J2704; J2997; J3010; J7121